=== PATIENT | female | born 1935 | race Caucasian/White ===

== ENCOUNTER 2017-09-16 09:58 | Day surgery (SDC) | payer MEDICARE, SELFPAY ==
[2017-09-13 09:36] VITALS: BMI 26.6
[2017-09-16] VITALS (12 sets, daily range): BP systolic 102–175; BP diastolic 52–79; PULSE 59–60; RESP 16; TEMP 36.6–37.2; O2SAT 95–98; BMI 24.9; BMI 26.6
--- NOTE | 2017-09-16 13:37 | CL.IE_ITS ---
Patient: NELI CLAY Study Date: 09/16/2017 Performing: Paul Michel MD : 1935 Age: 82 Gender: female PROCEDURES PERFORMED [id number] PACER INSERT+DUAL LEADS INDICATIONS Sinoatrial node dysfunction/Sick sinus syndrome PROCEDURE DETAILS The patient was brought to the Catheterization Lab in the postabsorptive nonsedated state. Informed consent was obtained prior to the procedure. Local anesthetic was given subcutaneously to the left olea bclavian region with Lidocaine 2%. Incision was made to the left subclavicular area. Access was achie leydi and a guidewire was advanced into the left subclavian vein using 9Fr peel-away sheath. PPM ventri cular lead was inserted / positioned to right ventricular apex. PPM ventricular lead testing performe d. PPM ventricular lead testing performed. PPM atrial lead was inserted / positioned to the right atr ial appendage. PPM atrial lead testing performed. Device pocket was irrigated with antibiotic. PPM ge nerator was attached to the lead(s) and inserted into the pocket. Subcutaneous closure was completed with 3-0 Vicryl. Skin closure was completed with 4-0 Vicryl. Steri-strips applied to left subclavicul ar incision. The patient tolerated the procedure well. 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: [employer], Model # 7741 52cm , Serial # [id number] PPM Atrial lead - Dredge Pipe Operator: [employer], Model # 7740 45cm , Serial # [id number] PPM Generator - Dredge Pipe Operator: [employer], Model # L111 [employer] MRI , Serial # [id number] DEVICE PARAMETERS ATRIAL LEAD PARAMETERS: P wave (mV) - 3.4 Current (mA) - 1.2 threshold (V) - 0.7 impedence (OHMS) - 588 10V test; no diaphragmatic capture VENTRICULAR LEAD PARAMETERS: R wave (mV) - 6.5 current (mA) - 0.7 threshold (V) - 0.6 impedence (OHMS) - 936 10V test; no diaphragmatic capture DEVICE PARAMETERS: Mode - DDDR lower rate - 60 upper rate - 130 rate response on CONCLUSIONS / RECOMMENDATIONS Device Conclusions: Successful implantation of a dual chamber pacemaker Device Recommendations: Follow up with Primary Care Physician PROCEDURE MEDICATIONS Fentanyl 50 mcg IV Versed 1 mg IV Versed 1 mg IV Oxygen: 2 L/min via nasal cannula Antibiotic given in appropriate timeframe. Ancef 2 Gm IV @ 09/16/2017 11:45:02 Signed By Paul Michel MD On 09/16/2017 13:37:04 Paul Michel MD
[2017-09-16] MEDS: Amiodarone 200 MG Tablet 100 MG PO (16:11)
[2017-09-16] MEDS: Metoprolol Tartrate 25 MG Tablet PO (21:21)
[2017-09-17 02:58] VITALS: BP 150/83; PULSE 62; RESP 16; TEMP 37; O2SAT 95
[2017-09-17 03:13] VITALS: PULSE 60
--- NOTE | 2017-09-17 05:55 | RAD_ITS ---
STUDY: X-RAY CHEST REASON FOR EXAM: Female, 82 years old. Status post pacemaker insertion. Evaluate for pneumothorax. TECHNIQUE: PA and lateral chest in inspiration. COMPARISON: September 17, 2015 at 6:42 AM. June 28, 2017. FINDINGS: The lungs are clear and expanded. There is no demonstrated pleural abnormality. No pneumothorax. Normal size heart. Normal mediastinum and dave. Normal visualized pulmonary arteries. Normal visualized aortic arch and descending thoracic aorta. Normal visualized thoracic spine. Normal visualized ribs, clavicles, and shoulders. Cardiac pacemaker left hemithorax. Cardiac pacer wire leads overlie the right atrium and right ventricle. There is no demonstrated abnormality of the visualized soft tissue structures of the upper abdomen. RAD/Chest PA and Lateral IMPRESSION: No acute cardiopulmonary disease. No pneumothorax. Cardiac pacemaker in its expected location. Electronically Signed: Carlos Alberto Cuellar MD at 7:17 EST , Service support ,
--- NOTE | 2017-09-17 05:55 | RAD_ITS ---
STUDY: X-RAY CHEST REASON FOR EXAM: Female, 82 years old. Status post pacemaker insertion. TECHNIQUE: AP portable chest in inspiration and expiration. COMPARISON: June 28, 2017. FINDINGS: The lungs are clear and expanded. There is no demonstrated pleural abnormality. No pneumothorax. Normal size heart. Normal mediastinum and dave. Normal visualized pulmonary arteries. Normal visualized aortic arch and descending thoracic aorta. Normal visualized thoracic spine. Normal visualized ribs, clavicles, and shoulders. Cardiac pacemaker overlies left hemithorax with leads overlying the right atrium and right ventricle. There is no demonstrated abnormality of the visualized soft tissue structures of the upper abdomen. RAD/Chest 1 View IMPRESSION: No acute cardiopulmonary disease. No pneumothorax. Cardiac pacemaker in its expected location. Electronically Signed: Carlos Alberto Cuellar MD at 7:03 EST , Service support ,
[2017-09-17 06:55] VITALS: PULSE 61
--- NOTE | 2017-09-17 07:52 | PCM.PN.CARD ---
Subjectve: Patient seen and evaluated and appears to be doing well with no complaints Objective: Vital Signs Temp Pulse Resp BP Pulse Ox 98.6 F 60 16 150/83 H 95 09/17/17 02:58 09/17/17 03:13 09/17/17 02:58 09/17/17 02:58 09/17/17 02:58 Oxygen Delivery Method Room Air Weight: 145 lb Body Mass Index (BMI) 24.9 Intake and Output for Last 24 Hours 09/15/17 09/16/17 09/17/17 23:59 23:59 23:59 Intake Total 240 / 240 Balance 240 / 240 General: Awake, Alert, Oriented x 3 HEENT: PERRL, EOMI, Sclera Non Icteric Neck: Supple, Good ROM, No Lymph Node Enlargement Lungs: Clear to auscultation Cardiovascular: Regular Rhythm, Normal S1, Normal S2, No Murmurs, No Rubs, No Gallops Vascular: No Carotid Bruits, Normal Femoral Pulses, Normal Radial Pulses, Normal Dorsalis Pedal Pulse, Normal Posterior Tibial Pulses Abdomen: Bowel Sounds Present, Soft, Non Tender, No HSM, No Organomegaly Extremities: No Cyanosis, No Clubbing, No edema Neurological: No Focal Motor or Sensory Deficit Psych/Mental Status: Appropriate Rhythm: EKG: ECHO: Stress Test: Cardiac Cath: PCI: CT Surgery: Holter monitor: EPS: PPM: CXR:No pneumothorax Chest CT Scan: Assessment/Plan 1. Status post pacemaker placement Patient is status post pacemaker placement and appears to be doing well chest x-ray does not demonstrate any evidence of pneumothorax and pacer check today noted adequately functioning dual-chamber pacemaker. Patient will be discharged to follow-up as an outpatient.
--- NOTE | 2017-09-17 07:55 | PN.CARD_ITS ---
Subjectve: Patient seen and evaluated and appears to be doing well with no complaints Objective: Vital Signs Temp Pulse Resp BP Pulse Ox 98.6 F 60 16 150/83 H 95 09/17/17 02:58 09/17/17 03:13 09/17/17 02:58 09/17/17 02:58 09/17/17 02:58 Oxygen Delivery Method Room Air Weight: 145 lb Body Mass Index (BMI) 24.9 Intake and Output for Last 24 Hours 09/15/17 09/16/17 09/17/17 23:59 23:59 23:59 Intake Total 240 / 240 Balance 240 / 240 General: Awake, Alert, Oriented x 3 HEENT: PERRL, EOMI, Sclera Non Icteric Neck: Supple, Good ROM, No Lymph Node Enlargement Lungs: Clear to auscultation Cardiovascular: Regular Rhythm, Normal S1, Normal S2, No Murmurs, No Rubs, No Gallops Vascular: No Carotid Bruits, Normal Femoral Pulses, Normal Radial Pulses, Normal Dorsalis Pedal Pulse, Normal Posterior Tibial Pulses Abdomen: Bowel Sounds Present, Soft, Non Tender, No HSM, No Organomegaly Extremities: No Cyanosis, No Clubbing, No edema Neurological: No Focal Motor or Sensory Deficit Psych/Mental Status: Appropriate Rhythm: EKG: ECHO: Stress Test: Cardiac Cath: PCI: CT Surgery: Holter monitor: EPS: PPM: CXR:No pneumothorax Chest CT Scan: Assessment/Plan 1. Status post pacemaker placement Patient is status post pacemaker placement and appears to be doing well chest x- ray does not demonstrate any evidence of pneumothorax and pacer check today noted adequately functioning dual-chamber pacemaker. Patient will be discharged to follow-up as an outpatient.
--- NOTE | 2017-09-17 07:55 | PCM.DC.PACE ---
Discharge Diet: No Restrictions Discharge Activity: May Not Drive Return to work on:: 10/04/17 May resume sexual activity in: 2 weeks Call your doctor if your incision/area has: Continuous Slow Oozing, Sudden Increased Bleeding, Increased Pain/ Swelling, Increased Redness, Foul Smelling Discharge, Swelling at the incision site Call your doctor if you observe: Fever of 101 or Higher, Shortness of breath, Dizziness, Fainting spells, Swelling in the ankles, Chest pain, Prolonged hiccoughing, Increased palpitations (irregular heartbeat) Change Dressing in (Days):: 3 Remove Dressing in (days):: 3 Cleanse incision/area with: Do not get Incision Wet, Keep Dressing Clean & Dry Additional Dressing/Incision Instructions:: When dressing is removed, wash and dry incision. Keep covered with a light bandage if it is rubbing against your clothing. Do not cover the incision with an airtight bandage. Change the bandage daily. Do not remove steri strips. The strips will fall off on their own. Additional Instructions: Signs and Symptoms to Report to Your Doctor at Once - call your doctor's office or Doctor's Registry ([phone]) Call 911 or go to the nearest Emergency Department if you feel you need urgent care. *Infection (fever, increased redness or swelling at the incision site, drainage from the incision increased pain at the pacemaker site) *Shortness of breath *Dizziness *Fainting spells *Swelling in the ankles *Chest pain *Prolonged hiccoughing *Increased palpitaitons (irregular heartbeat) Medications: Take your pain medication as directed. Refer to your discharge instruction sheet for a list of medications you are to take. Allergies/Adverse Reactions: Allergies No Known Allergies Allergy (Verified 06/21/17 08:57) Medications to take at Discharge Metoprolol Tartrate [Lopressor (Beta Janeth)] 25 mg PO BID 06/21/17 furosemide 40 mg tablet 40 ml PO DAILY 30 Days #30 08/20/17 Primary Care Physician: Alissa Benjamin DO [Primary Care Provider] - When: sep 24 at 10:30am Proposed Discharge Date: 09/17/17
--- NOTE | 2017-09-17 08:02 | PCM.PACRNU ---
Pacer Nurse Hospital Visit Notes: Dual Chamber Pacemaker Evaluation: 1st day post implant PPM check completed at bedside Rm #[id number]. Interrogation shows no MS, no AT/AF or VHR episodes since implant. Left pectoral pocket/incision DSD intact with small amount of old drainage noted on dressing that is circled. No hematoma noted. Presenting rhythm shows AAI pacing @ 60 ppm. CZ=000%, SENIOR QA TESTER=2%. Battery longevity approx >8 yrs. Lead impedances, sensing and pace/sense thresholds remain stable. No parameter changes made. Counters cleared. Wound care and left arm restriction instructions given including wound check appt on 09/24/17 @ 10:30am. Dr. Michel notified of above findings. Erica Milan RN
[2017-09-17 08:10] VITALS: BP 156/70; PULSE 60; RESP 18; TEMP 36.5; O2SAT 100
[2017-09-17 08:14] VITALS: PULSE 62; O2SAT 100
[2017-09-17 08:19] VITALS: BP 156/70; PULSE 62
[2017-09-17] MEDS: Amiodarone 200 MG Tablet 100 MG PO (08:19)
[2017-09-17] MEDS: Metoprolol Tartrate 25 MG Tablet PO (08:19)
--- NOTE | 2017-09-17 11:05 | NURSING ---
REVIEWED AND AGREED W/ Obed [facility]ABCOCK'S CHARTING.
== END 2017-09-17 09:55 | disposition home or self-care (01) ==
LOC: CLSP 09:59 → PCU 13:42
PROVIDERS: Family Provider Internal Medicine; PCP Internal Medicine; Visit Provider Internal Medicine Cardiovascular Disease
DX: I49.5 Sick sinus syndrome (principal); I48.0 Paroxysmal atrial fibrillation; I27.20 Pulmonary hypertension, unspecified; I45.10 Unspecified right bundle-branch block; R00.1 Bradycardia, unspecified; Z79.01 Long term (current) use of anticoagulants; Z79.899 Other long term (current) drug therapy; Z87.891 Personal history of nicotine dependence; Z85.41 Personal history of malignant neoplasm of cervix uteri
CPT/HCPCS: 33208; 71045; 71046; 99152; 99153; J7040; J7050; C1894

== ENCOUNTER → 2017-12-17 11:09 | Outpatient (CLI) | payer MEDICARE, SELFPAY ==
[2017-12-17 13:00] LABS: T4 Free Direct 1.21 ng/dL (0.76-1.46); Thyroid Stim Hormone (TSH) 1.41 uIU/mL (0.358-3.74)
== END ==
PROVIDERS: Family Provider Internal Medicine; PCP Internal Medicine; Visit Provider Physician Assistant Medical
DX: R53.83 Other fatigue (principal)
CPT/HCPCS: 36415; 84439; 84443

== ENCOUNTER → 2018-03-19 12:14 | Outpatient (CLI) | payer MEDICARE, SELFPAY ==
--- NOTE | 2018-03-19 12:18 | RAD_ITS ---
STUDY: X-RAY CHEST REASON FOR EXAM: Female, 82 years old. Shortness of breath x3 weeks TECHNIQUE: PA and lateral views of the chest. COMPARISON: Previous study of September 17, 2017 FINDINGS: There is a left-sided bipolar pacemaker. The lungs are clear and expanded. There is minimal blunting of the posterior costophrenic angles. Normal size heart. Normal mediastinum and dave. Normal visualized pulmonary arteries. There are calcified plaques of the aortic arch. Normal visualized thoracic spine. Normal visualized ribs, clavicles, and shoulders. There is no demonstrated abnormality of the visualized soft tissue structures of the upper abdomen. RAD/Chest PA and Lateral IMPRESSION: 1. Minimal blunting of the posterior costophrenic angles, similar to the previous study. 2. Calcified plaques of the aortic arch. 3. No acute cardiopulmonary disease process is seen. Electronically Signed: Bebeto Beaver MD at 17:16 EDT , Service support ,
[2018-03-19 13:59] LABS: Absolute Lymphocyte Count 1.65 X10^3/ul (0.83-4.51); Absolute Neutrophil Count 3.6 X10^3/uL (2.0-7.7); Basophil# 0.05 X10^3/uL; Basophil% 0.9 % (0-1); Eosinophil# 0.13 X10^3/uL; Eosinophils% 2.2 % (0-5); Hematocrit 41.5 % (37-47); Hemoglobin 13.6 g/dl (12.0-15.0); Lymphocyte # 1.65 X10^3/ul (4.0); Lymphocyte % 28.2 % (19-41); Mean Corp Hgb Conc 32.8 g/gl (32-36); Mean Corpuscular Hgb 30.8 pg (27.0-32.0); Mean Corpuscular Volume 94.1 fL (81-99); Mean Platelet Vol. 10.8 fl (6.2-12.0); Monocyte# 0.43 X10^3/uL; Monocyte% 7.4 % (0-10); Neutrophil # 3.58 X10^3/uL (2.7-7.7); Neutrophil % 61.1 % (47-70); Platelet Count 207 K/mm3 (150-450); RBC Distribution Width CV 12.7 % (11.6-14.6); RBC Distribution Width SD 43.7 fl (35.1-43.9); Red Blood Count 4.41 M/mm3 (4.2-5.4); White Blood Count 5.9 K/mm3 (4.4-11.0)
[2018-03-19 14:01] LABS: POSITIVE COUNT NO; POSITIVE DIFFERENTIAL NO; POSITIVE MORPHOLOGY NO
[2018-03-19 14:12] LABS: Anion Gap 5 (5-15); BUN 22 mg/dL (7-18); BUN/Creat Ratio 22.3 RATIO (10-20); Calcium,Total 9.3 mg/dL (8.5-10.1); Chloride 103 mmol/L (98-107); Creatinine, Serum 0.99 mg/dL (0.55-1.02); EST Glomerular Filtration Rate 57 mL/min (>60); Est Glom Filt Rate - Afr Amer 70 mL/min (>60); Glucose 87 mg/dL (74-106); Potassium 4.2 mmol/L (3.5-5.1); Sodium Level 136 mmol/L (136-145)
[2018-03-19 14:19] LABS: BNP,B-Type NATRIURETIC PEPTIDE 198.4 pg/mL (0-100)
== END ==
PROVIDERS: Family Provider Internal Medicine; PCP Internal Medicine; Visit Provider Physician Assistant Medical
DX: R06.09 Other forms of dyspnea (principal); R53.83 Other fatigue; I48.91 Unspecified atrial fibrillation; R06.02 Shortness of breath
CPT/HCPCS: 36415; 71046; 80048; 83880; 85025

== ENCOUNTER → 2018-04-03 08:40 | Outpatient (CLI) | payer MEDICARE, SELFPAY ==
--- NOTE | 2018-04-04 07:25 | PFT ---
INTRODUCTION: The patient is an 82-year-old female who presents for pulmonary function testing secondary to a diagnosis of dyspnea on exertion. Respiratory therapy reports good patient effort. Bronchodilators were used during testing. INTERPRETATION: Forced expiration spirometry demonstrates no evidence of a large airways obstructive ventilatory defect, based upon a postbronchodilator FEV1/FVC of greater than 70%. There was no significant response to aerosolized bronchodilators. Spirograms are of good quality and plateau gradually. Body plethysmography was performed and reveals lung volumes to be within normal limits. Diffusing capacity by single breath CO is within normal limits at 85% of predicted. When compared to previous pulmonary function studies dated August 2017, there has been symmetric improvement in the patient's FEV1 and FVC. Total lung capacity is also improved. IMPRESSION: Essentially normal pulmonary function testing, with improvement noted since PFTs were last completed in August 2017.
== END ==
PROVIDERS: Family Provider Internal Medicine; PCP Internal Medicine; Visit Provider Physician Assistant Medical
DX: I48.91 Unspecified atrial fibrillation (principal); R06.09 Other forms of dyspnea; R53.83 Other fatigue
CPT/HCPCS: 94060; 94726; 94729

== ENCOUNTER → 2018-06-23 06:27 | Outpatient (CLI) | payer MEDICARE, SELFPAY ==
--- NOTE | 2018-06-23 11:23 | STRESSREP ---
Stress Test Report Pharmacologic myocardial perfusion stress test. 82-year-old lady with a history of chest pain and shortness of breath and atrial fibrillation. Stress protocol: Resting EKG demonstrates atrial for ablation with a controlled ventricular response rate of 74 bpm frequent premature ventricular complexes are noted resting blood pressure 146/98 mmHg. 0.4 mg of regadenoson was infused per usual protocol followed by rapid intravenous saline flush injection continuous EKG monitoring was performed. Patient maintained atrial for ablation throughout the recording. Occasional premature ventricular complexes were noted. At rest there were no ST or T wave changes noted suggest abnormal flow reserve at peak infusion no ST or T wave changes were noted suggest abnormal flow reserve. No areas of EKG changes were noted to be of concern. The resting blood pressure 146/98 with a final blood pressure 118/80 mmHg. Myocardial perfusion protocol. 10.4 mCi of technetium 99m sestamibi was injected at rest. 0.4 mg of regadenoson was infused per usual protocol. Peak infusion 31.5 mCi of technetium 99m sestamibi was injected stress images were obtained stress and rest images were reconstructed and compared in the short axis vertical long horizontal long axis. Gated images were also obtained per Perfusion SPECT analysis: Review of the stress images demonstrate normal uptake of tracer noted in all areas of the myocardium. The resting images demonstrate normal uptake of tracer noted in all areas of the myocardium. No reversibility is noted suggest ischemia. Gated SPECT analysis: The gated ejection fraction is 74%. Conclusion: Normal pharmacologic myocardial perfusion stress test. Preserved ejection fraction.
== END ==
PROVIDERS: Family Provider Internal Medicine; PCP Internal Medicine; Referring Provider Physician Assistant Medical; Visit Provider Physician Assistant Medical
DX: R07.89 Other chest pain (principal)
CPT/HCPCS: 78452; 93017; A9500; A4216; J2785

== ENCOUNTER → 2018-08-29 10:07 | Outpatient (CLI) | payer MEDICARE, SELFPAY ==
[2018-07-29 07:52] VITALS: BMI 25.5
[2018-08-29 11:52] LABS: BNP,B-Type NATRIURETIC PEPTIDE 470.2 pg/mL (0-100)
== END ==
PROVIDERS: Family Provider Internal Medicine; PCP Internal Medicine; Referring Provider Internal Medicine Cardiovascular Disease; Visit Provider Internal Medicine Cardiovascular Disease
DX: R06.09 Other forms of dyspnea (principal)
CPT/HCPCS: 36415; 83880

== ENCOUNTER → 2018-09-04 15:02 | Outpatient (CLI) | payer MEDICARE, SELFPAY ==
[2018-07-29 07:52] VITALS: BMI 25.5
[2018-09-04 15:21] LABS: Absolute Lymphocyte Count 1.67 X10^3/ul (0.83-4.51); Absolute Neutrophil Count 3.5 X10^3/uL (2.0-7.7); Basophil# 0.07 X10^3/uL; Basophil% 1.2 % (0-1); Eosinophil# 0.13 X10^3/uL; Eosinophils% 2.2 % (0-5); Hematocrit 41.3 % (37-47); Hemoglobin 13.7 g/dl (12.0-15.0); Lymphocyte # 1.67 X10^3/ul (4.0); Mean Corp Hgb Conc 33.2 g/gl (32-36); Mean Corpuscular Hgb 31.3 pg (27.0-32.0); Mean Corpuscular Volume 94.3 fL (81-99); Mean Platelet Vol. 10.4 fl (6.2-12.0); Monocyte# 0.53 X10^3/uL; Monocyte% 8.9 % (0-10); Neutrophil # 3.54 X10^3/uL (2.7-7.7); Neutrophil % 59.4 % (47-70); Platelet Count 194 K/mm3 (150-450); RBC Distribution Width CV 13.2 % (11.6-14.6); RBC Distribution Width SD 44.1 fl (35.1-43.9); Red Blood Count 4.38 M/mm3 (4.2-5.4)
[2018-09-04 15:29] LABS: POSITIVE COUNT NO; POSITIVE DIFFERENTIAL NO; POSITIVE MORPHOLOGY NO
[2018-09-04 15:49] LABS: Anion Gap 10 (5-15); BUN 29 mg/dL (7-18); BUN/Creat Ratio 24.8 RATIO (10-20); Calcium,Total 9.2 mg/dL (8.5-10.1); Chloride 104 mmol/L (98-107); Creatinine, Serum 1.17 mg/dL (0.55-1.02); EST Glomerular Filtration Rate 47 mL/min (>60); Est Glom Filt Rate - Afr Amer 57 mL/min (>60); Glucose 119 mg/dL (74-106); Potassium 3.6 mmol/L (3.5-5.1); Sodium Level 140 mmol/L (136-145)
[2018-09-04 16:41] LABS: International Normalized Ratio 1.3; Prothrombin Time (Protime)PT. 15.7 SECONDS (11.7-14.9)
[2018-09-04 16:42] LABS: Partial Thromboplast Time 40.8 Seconds (24.1-36.2)
--- OUTSIDE RECORDS SUMMARY | 2018-11-09 10:28 | XMS RPT_ITS ---
:1935 Author Organization [facility] Support Name Relationship Address Phone MARCELINO RIVERA Unavailable [address] + [place] [address] LAN CLAY Unavailable [address] + [place] [address] R Unavailable Unavailable Unavailable MARCELINO RIVERA Unavailable [address] + [place] [address] LAN CLAY Unavailable [address] + [place] [address] R Unavailable Unavailable Unavailable MARCELINO RIVERA Unavailable [address] + [place] [address] LAN CLAY Unavailable [address] + [place] [address] R Unavailable Unavailable Unavailable MARCELINO RIVERA Unavailable [address] + [place] [address] LAN CLAY Unavailable [address] + [place] [address] R Unavailable Unavailable Unavailable MARCELINO RIVERA Unavailable [address] + [place] [address] LAN CLAY Unavailable [address] + [place] [address] R Unavailable Unavailable Unavailable MARCELINO RIVERA Unavailable [address] + [place] [address] LAN CLAY Unavailable [address] + [place] [address] R Unavailable Unavailable Unavailable MARCELINO RIVERA Unavailable [address] + [place] [address] LAN CLAY Unavailable [address] + [place] [address] R Unavailable Unavailable Unavailable MARCELINO RIVERA Unavailable . + [place] [address] LAN CLAY Unavailable [address] + [place] [address] R Unavailable Unavailable Unavailable MARCELINO RIVERA Unavailable Unavailable + [place] [address] LAN CLAY Unavailable [address] + [place] [address] R Unavailable Unavailable Unavailable MARCELINO RIVERA Unavailable Unavailable + [place] [address] LAN CLAY Unavailable [address] + [place] [address] R Unavailable Unavailable Unavailable MARCELINO RIVERA Unavailable 1 + [place] [address] LAN CLAY Unavailable [address] + [place] [address] R Unavailable Unavailable Unavailable MARCELINO RIVERA Unavailable 1 + [place] [address] LAN CLAY Unavailable [address] + [place] [address] R Unavailable Unavailable Unavailable MARCELINO RIVERA Unavailable Unavailable + LAN CLAY Unavailable [address] + [place] [address] R Unavailable Unavailable Unavailable MARCELINO RIVERA Unavailable Unavailable + LAN CLAY Unavailable [address] + [place] [address] R Unavailable Unavailable Unavailable MARCELINO RIVERA Unavailable Unavailable + LAN CLAY Unavailable [address] + [place] [address] R Unavailable Unavailable Unavailable MARCELINO RIVERA Unavailable 1 + [place] [address] LAN CLAY Unavailable [address] + [place] [address] R Unavailable Unavailable Unavailable MARCELINO RIVERA Unavailable Unavailable + LAN CLAY Unavailable [address] + [place] [address] R Unavailable Unavailable Unavailable MARCELINO RIVERA Unavailable NA + [place], [place] LAN CLAY Unavailable [address] + [place] [address] R Unavailable Unavailable Unavailable MARCELINO RIVERA Unavailable NA + [place], [place] LAN CLAY Unavailable [address] + [place] [address] R Unavailable Unavailable Unavailable MARCELINO RIVERA Unavailable NA + [place], [place] LAN CLAY Unavailable [address] + [place] [address] R Unavailable Unavailable Unavailable MARCELINO RIVERA Unavailable NA + [place], [place] LAN CLAY Unavailable [address] + [place] [address] R Unavailable Unavailable Unavailable LAN CLAY Unavailable [address] + [place] [address] R Unavailable Unavailable Unavailable LAN CLAY Unavailable [address] + [place] [address] R Unavailable Unavailable Unavailable MARCELINO RIVERA Unavailable Unavailable + LAN CLAY Unavailable [address] + [place] [address] R Unavailable Unavailable Unavailable MARCELINO RIVERA Unavailable NA + [place], [place] LAN CLAY Unavailable [address] + [place] [address] R Unavailable Unavailable Unavailable Care Team Providers Name Role Phone Alissa Benjamin DO Attending Unavailable Diamante Estes MD Referring Unavailable Alissa Benjamin DO Consulting Unavailable Marilu, Red Devil Attending Unavailable Alissa Benjamin Referring Unavailable Marilu, Red Devil Attending Unavailable Marilu, Paul Referring Unavailable Alissa Benjamin Primary Care Unavailable Lizy Yusuf Attending Unavailable Marilu, Paul Attending Unavailable Marilu, Paul Referring Unavailable Alissa Benjamin Primary Care Unavailable Marilu, Paul Attending Unavailable Alissa Benjamin Referring Unavailable Marilu, Red Devil Attending Unavailable Cassidy, Alissa Primary Care Unavailable Marilu, Paul Referring Unavailable Marilu, Red Devil Attending Unavailable Marilu, Red Devil Referring Unavailable Cassidy, Alissa Primary Care Unavailable Jaylene Milan Attending Unavailable Marilu, Red Devil Attending Unavailable Marilu, Red Devil Referring Unavailable Cassidy, Alissa Primary Care Unavailable Marilu, Paul Consulting Unavailable BjornTemie Attending Unavailable Cassidy, Alissa Referring Unavailable Cassidy, Alissa Primary Care Unavailable BjornTemie Attending Unavailable Cassidy, Alissa Referring Unavailable Cassidy, Alissa Primary Care Unavailable Marilu, Paul Attending Unavailable Marilu, Paul Referring Unavailable PaulsonAngelica terry Attending Unavailable Marilu, Paul Referring Unavailable Cassidy, Alissa Primary Care Unavailable Marilu, Paul Consulting Unavailable Lizy Yusuf Attending Unavailable Leora Sierra Attending Unavailable Angelica Paulson Attending Unavailable Cassidy, Alissa Referring Unavailable Cassidy, Alissa Primary Care Unavailable Angelica Paulson Attending Unavailable Angelica Paulson M Referring Unavailable Cassidy, Alissa Primary Care Unavailable Angelica Paulson Attending Unavailable Cassidy, Alissa Referring Unavailable Cassidy, Alissa Primary Care Unavailable Angelica Paulson M Attending Unavailable PaulsonAngelica M Referring Unavailable Cassidy, Alissa Primary Care Unavailable Angelica Paulson M Attending Unavailable Paulson, Angelica M Referring Unavailable Cassidy, Alissa Primary Care Unavailable Randell Bhat D.O. Attending Unavailable Angelica Paulson M Referring Unavailable BjornJaylene Attending Unavailable Cassidy, Alissa Referring Unavailable Cassidy, Alissa Primary Care Unavailable Angelica Paulson M Attending Unavailable Cassidy, Alissa Referring Unavailable Lorene, Angelica M Attending Unavailable Angelica Paulson M Referring Unavailable Cassidy, Alissa Primary Care Unavailable Marilu, Paul Attending Unavailable Angelica Paulson M Referring Unavailable PROBLEMS PROBLEMS DATE TYPE CONDITION / CODE ATTENDING STATUS SOURCE 07/29/2018 Unknown R06.09 - Other Marilu, Paul Active [place] forms of dyspnea / Community R06.09(ICD-10) Hospital Repository 07/29/2018 Unknown I10 - Essential Marilu, Paul Active [place] (primary) Community hypertension / Hospital I10(ICD-10) Repository 07/29/2018 Unknown Z95.0 - Presence Marilu, Red Devil Active [place] of cardiac Community pacemaker / Hospital Z95.0(ICD-10) Repository 07/29/2018 Unknown I48.0 - Paroxysmal Marilu, Red Devil Active [place] atrial Community fibrillation / Hospital I48.0(ICD-10) Repository 07/15/2018 Unknown R07.9 - Chest Marilu, Paul Active [place] pain, unspecified Community / R07.9(ICD-10) Hospital Repository 03/19/2018 Unknown R53.83 - Other Paulson, Active [place] fatigue / [facility] R53.83(ICD-10) Hospital Repository 03/19/2018 Unknown I48.91 - Paulson, Active [place] Unspecified atrial [facility] fibrillation / Hospital I48.91(ICD-10) Repository 10/22/2017 Unknown I49.5 - Sick sinus Marilu, Paul Active [place] syndrome / [facility] I49.5(ICD-10) Hospital Repository PROCEDURES PROCEDURES No Procedure Records FoundRESULTS RESULTS HISTORY AND PHYSICAL Observed: 09/08/2018 Status: F Source: [place] EXAM 10:01 AM [facility]ITORY [facility] Medical Records Department [address] [place] [address] History and Physical 09/08/18 0939 MR#: [id number] Acct: [id number] Name: NELI CLAY Rep #: [id number] : 1935 83 From: Angelica RENTERIA PCP: Alissa Benjamin DO Status: [facility] [place] Location[facility] Problem List (1) Fatigue Status: Acute Qualifiers: Fatigue type: chronic, unspecified Qualified Code(s): R53.82 - Chronic fatigue, unspecified (2) Dyspnea on exertion Status: Acute History and Physical Date of Admission: 09/08/18 NELI CLAY, is a 82 F who presents here today for a heart cath for her continued OROURKE and Fatigue. She does have a history of paroxysmal atrial fibrillation, palpitations, right bundle branch block, hypertension and pulmonary hypertension. In August 2017 she was in our office for an urgent appointment for shortness of breath. She was noted to have symptomatic sinus bradycardia and underwent a pacemaker placement. Pt has continued to complain of OROURKE with activity, she feels that she should be able to do more that she should She also notes fatigue during activities. She sts that this weekend while out shoveling snow she noted chest pain and SOB. She stopped this activity. She is not aware that this is in Atrial fib. She does not have any edema, lightheadedness, dizziness. We have been adjusting her medications and she has not felt improvement. Stress test in June of 2018 was negative for ischemia. With her continued concerns we are proceeding with a diagnostic heart cath. Intake Vital Signs Height 5 ft 4 in Weight: 149 lb Body Mass Index (BMI) 25.5 Blood Pressure 112/64 Respiratory Rate 18 Pulse Rate 72 Allergies No Known Allergies Allergy (Verified 07/29/18 07:52) Medications apixaban 5 mg tablet 5 mg PO BID #180 tab 01/09/18 [Rx Confirmed 07/29/18] metoprolol tartrate 25 mg tablet 25 mg PO BID #60 tab 04/07/18 [Rx Confirmed 07/29/18] lisinopril 20 mg tablet 20 mg PO DAILY #30 tab 07/14/18 [Rx Confirmed 07/29/18] amiodarone 200 mg tablet 100 mg PO DAILY 30 Days #15 tab 07/29/18 [History Confirmed 07/29/18] furosemide 40 mg tablet 40 mg PO DAILY #90 tab 07/29/18 [Rx Confirmed 07/29/18] [facility] Medical History Essential hypertension (Chronic) Other secondary pulmonary hypertension (Chronic) Nonrheumatic tricuspid (valve) insufficiency (Chronic) Sinus bradycardia (Chronic) Paroxysmal atrial fibrillation (Chronic) Complete right bundle branch block (Chronic) Sick sinus syndrome (Chronic) Presence of cardiac pacemaker (Chronic) Cervical cancer (Resolved) New onset atrial fibrillation (Inactive) Surgical History History of cardioversion (Resolved 07/13/17) History of hysterectomy (Resolved) History of tonsillectomy (Resolved) Hx of cholecystectomy (Resolved) Family History Mother CHF (congestive heart failure) Father Myocardial infarction Brother Heart disease Social History Smoking Status: Former smoker alcohol intake: never substance use type: does not use caffeine: No what type of physical activity do you participate in: none seatbelt use: always do you feel safe at home: Yes ROS Const Const: Positive for Fatigue Negative for weakness, difficulty sleeping, frequent falls, excessive sweating or headache(s) Eyes Eyes: Negative for loss of peripheral vision, transient loss of vision, blurry vision, tunnel vision or double vision ENT ENT: Negative for headache(s), dizziness, Nosebleed/epistaxis or balance problems Cardio Chest Pain: No Palpitations: No Edema: none Muscle aches with walking: None Resp Respiratory: Positive for SOB with activity; negative for SOB at rest, SOB orthopnea\SOB lying down, paroxysmal nocturnal dyspnea or Cough GI GI: Negative nausea, heartburn, black,tarry stools or vomiting : Negative for hematuria Musc Musc: Negative for balance problems, muscle aches/ myalgia, muscle weakness or joint pain Skin Skin: Negative non-healing lesions, unusual bruising or rash Neuro Neuro: Negative for weakness, frequent falls, headache(s), blurry vision, double vision, dizziness, lightheadedness, orthostatic symptoms, near syncope, syncope or lack of coordination Yan Hematologic/Lymphatic: Negative for easy bruising or easy bleeding Endo Endo: Negative for fatigue, excessive sweating or increased thirst/drinking Psych Psych: Negative for anxiety or depression Allergy Allergy/Immunology: Negative for hives, Negative for rash Cardiology Exam Const Appearance: cooperative, healthy appearing, well developed, well groomed and no acute distress Nutritional Appearance: well nourished and average body habitus Orientation: alert, awake and oriented x3 Head Head: normal to inspection, normocephalic and atraumatic Ears: hearing grossly normal bilaterally and external ears normal Nose: external nose normal, nasal mucous membranes and turbinates normal, nares normal, septum normal, no nasal discharge Face and Sinus: face symmetric Mouth: oral mucosae normal, tongue normal, oropharynx normal and moist mucous membranes Teeth and gingiva: dentition normal Throat: posterior oropharynx normal, tonsils normal and uvula midline Eyes General: appearance normal, both eyes and all related structures Eyelids: eyelids normal Conjunctivae: conjunctivae normal Pupils: PERRL, normal by confrontation and accommodation normal EOM: EOM intact bilaterally Neck Neck: normal visual inspection, trachea midline and no JVD JVD: +5 Carotids: normal carotid upstroke and bounding pulses Chest Chest inspection: normal inspection of the chest, symmetric chest movement and normal respiratory effort Auscultation: Bilateral: Clear to Auscultation Cardio Palpation: normal PMI Rate: regular rate Rhythm: irregularly irregular Heart sounds: S1 normal, S2 normal and normal, physiologic split S2; negative rub, gallop or murmur GI GI: normal to inspection, soft, no hepatosplenomegaly and bowel sounds present Neuro General: alert, awake, oriented x3, no focal sensory deficit, gait normal and moves all extremities Skin Skin: no rashes or lesions noted Extremities Pulses: Normal: Right Femoral Pulse, Left Femoral Pulse, Right Dorsalis Pedis Pulse, Left Dorsalis Pedis Pulse, Right Posterior Tibial Pulse, Left Posterior Tibial Pulse, Right Radial Pulse, Left Radial Pulse Lower Extremity Edema: None: Bilateral Musculoskel Musculoskeletal: No joint tenderness Psych Psychological: normal affect Supplemental Info Echocardiogram in 2017 demonstrates an ejection fraction of 60%. Mild mitral valve insufficiency. Mild tricuspid valve insufficiency. RVSP 38 mmHg. Pharmacologic stress test in 2018 was negative for ischemia. Pulmonary function test in 2018 demonstrated essentially normal pulmonary function testing, with improvement noted since PFTs were last completed in August 2017. Assessment AND Plan 1. Dyspnea on exertion R06.09 2. Essential hypertension I10 3. Presence of cardiac pacemaker Z95.0 4. Paroxysmal atrial fibrillation I48.0 As mentioned above, with pts continued OROURKE and exertion, we are proceeding with a diagnostic heart cath. Pt will follow up accordingly after heart cath. The above patient was discussed with Dr. Michel, he agrees with plan of care. 09/08/18 1001 <Electronically signed by Angelica RENTERIA> Date Angelica RENTERIA Cosigner Signature: Date (if applicable) CC: Alissa Benjamin DO; Angelica Paulson Signed OFFICE VISIT REPORT Observed: 09/04/2018 Status: F Source: [place] 4:07 PM [facility] [place] [address] OFFICE VISIT Date of Service: 09/04/18 MR#: [id number] Acct: [id number] Patient: NELI CLAY Rep #: [id number] : 1935 Provider: Paul Michel MD Age/Sex: 83/F Location: [facility] Status: Signed Intake Vital Signs09/04/18 Body Mass Index (BMI) 25.5 Intake Visit Reasons: Cath Teach/EKG Chief Complaint: Follow up Allergies No Known Allergies Allergy (Verified 07/29/18 07:52) Medications apixaban 5 mg tablet 5 mg PO BID #180 tab 01/09/18 [Rx Confirmed 07/29/18] metoprolol tartrate 25 mg tablet 25 mg PO BID #60 tab 04/07/18 [Rx Confirmed 07/29/18] lisinopril 20 mg tablet 20 mg PO DAILY #30 tab 07/14/18 [Rx Confirmed 07/29/18] furosemide 40 mg tablet 40 mg PO DAILY #90 tab 07/29/18 [Rx Confirmed 07/29/18] amiodarone 200 mg tablet 100 mg PO DAILY #45 tab 08/07/18 [Rx] aspirin 81 mg tablet,delayed release 81 mg PO DAILY 09/04/18 [History] clopidogrel 75 mg tablet 75 mg PO DAILY #30 tab 09/04/18 [Rx] Nursing Note Cardiac catheterization teaching completed and instructions reviewed. Patient will hold eliquis starting tonight and start sapirin 81mg and plavix 75 mg daily. Labs and EKG completed. EKG shows atrial fib. Cath scheduled for 09/08/18 09/04/18 6369 <Electronically signed by Paul Michel MD> Date Paul Michel MD Cosigner Signature: Date (if applicable) CC: CBC W/DIFF, AUTOMATED Collected: 09/04/2018 Status: F Source: [place] 3:06 PM [facility] REPOSITORY TYPE CODE TESTS RESULT OUT OF RANGE REFERENCE UNITS LAB L100.1000 4.4-11.0 K/mm3 Normal WBC 6.0 LAB L100.1200 4.2-5.4 M/mm3 Normal RBC 4.38 LAB L100.1300 12.0-15.0 g/dl Normal HGB 13.7 LAB L100.1400 37-47 % Normal HCT 41.3 LAB L100.1500 81-99 fL Normal MCV 94.3 LAB L100.1600 27.0-32.0 pg Normal MCH 31.3 LAB L100.1700 32-36 g/gl Normal MCHC 33.2 LAB L100.1810 11.6-14.6 % Normal RDW CV 13.2 LAB L100.1820 35.1-43.9 fl High RDW SD 44.1 LAB L100.1900 150-450 K/mm3 Normal PLT 194 LAB L100.2000 6.2-12.0 fl Normal MPV 10.4 LAB L100.2100 47-70 % Normal NEUT% 59.4 LAB L100.2200 19-41 % Normal LY% 28.0 LAB L100.2300 0-10 % Normal MONO% 8.9 LAB L100.2400 0-5 % Normal EO% 2.2 LAB L100.2500 0-1 % High BASO% 1.2 LAB L100.2550 0.0-0.9 % Normal IM GRAN % 0.300 Result Comment: IG% - Immature Granulocytes (promyelocytes, myelocytes and metamyelocytes) > 1% indicates that a LEFT SHIFT is Present. LAB L100.2620 2.0-7.7 X10 3/uL Normal Absolute Neut 3.5 LAB L100.2720 0.83-4.51 X10 3/ul Normal Absolute Lymph 1.67 Performed By: #### L100.0100 #### [facility] [address] [place], [address] BASIC METABOLIC Collected: 09/04/2018 Status: F Source: [place] PROFILE (BMP) 3:06 PM [facility] REPOSITORY TYPE CODE TESTS RESULT OUT OF RANGE REFERENCE UNITS LAB L501.0100 74-106 mg/dL High GLU 119 Result Comment: Fasting Glucose result from 100 to 125 mg/dL suggests IMPAIRED HOMEOSTASIS per A.D.A. criteria. Please note revised GLUCOSE reference range effective 2017. LAB L501.1000 7-18 mg/dL High BUN 29 LAB L501.1100 0.55-1.02 mg/dL High CREAT,SERUM 1.17 Result Comment: The validity of the calculated GFR AND GFRAA in patients over 70 years has not been determined. Clinical correlation is essential. LAB L501.1110 >60 mL/min Low EST GFR 47 Result Comment: Non- GFR Calc LAB L501.1115 >60 mL/min Low EST GFR - AA 57 Result Comment: GFR Calc LAB L501.1300 10-20 RATIO High BUN/CRE 24.8 LAB L501.2200 8.5-10.1 mg/dL CA Normal 9.2 LAB L501.5300 136-145 mmol/L NA Normal 140 LAB L501.5600 3.5-5.1 mmol/L K Normal 3.6 LAB L501.5900 98-107 mmol/L CL Normal 104 LAB L501.6100 21.0-32.0 mmol/L Normal CO2 26.0 LAB L501.6200 5-15 Normal GAP 10 Performed By: #### L500.2500 #### [facility] [address] [place], [place], [address] PROTHROMBIN TIME W/INR Collected: 09/04/2018 Status: F Source: [place] 3:06 PM [facility] REPOSITORY TYPE CODE TESTS RESULT OUT OF RANGE REFERENCE UNITS LAB L300.4150 11.7-14.9 SECONDS High PROTIME 15.7 LAB L300.4200 Normal INR 1.3 Performed By: #### L300.3900, L300.4310 #### [facility] [address] [place], [address] PARTIAL THROMBOPLAST Collected: 09/04/2018 Status: F Source: [place] TIME 3:06 PM [facility] REPOSITORY TYPE CODE TESTS RESULT OUT OF REFERENCE UNITS RANGE LAB L300.4310 24.1-36.2 Seconds High PTT 40.8 Performed By: #### L300.3900, L300.4310 #### [facility] [address] [place], [address] 12 LEAD EKG PERFORMED Observed: 09/04/2018 Status: F Source: [place] BY BMS 10:35 AM [facility] REPOSITORY [facility] [address] [place] [address] 12 Lead EKG performed by [facility] 09/04/18 1033 MR#: [id number] Acct: [id number] Name: NELI CLAY Rep #: [id number] : 1935 83 From: Paul Michel MD Attending Dr: Lizy Yusuf Status: REG BNV Ordering Dr: Paul Michel MD Date: 09/04/18 Location: [facility] Sex: F C Admitted: BMS/12 Lead EKG performed by [facility] ECG Report Interpretation Atrial fibrillation - frequent ectopic ventricular beat s # VECs = 3-Right bundle branch block. ABNORMAL Electronically signed on 09/09/2018 at 15:36 by Paul Michel Software Version [id number] 09/09/18 1540 Date Paul Michel MD CC: Date Dictated: 09/04/183 Date Transcribed: 09/04/181032 Bankruptcy Paralegal: [place] Signed BNP,B-TYPE NATRIURETIC Collected: 08/29/2018 Status: F Source: [place] PEPTIDE 10:14 AM [facility] REPOSITORY TYPE CODE TESTS RESULT OUT OF RANGE REFERENCE UNITS LAB L503.6620 0-100 pg/mL High B-TYPE 470.2 ELOISA PEP Performed By: #### L503.6620 #### [facility] [address] [place], [address] CARDIOLOGY VISIT Observed: 07/29/2018 Status: F Source: [place] REPORT 10:17 AM [facility] REPOSITORY [facility] [address] [place] [address] OFFICE VISIT Date of Service: 07/29/18 MR#: [id number] Acct: [id number] Name: NELI CLAY Rep #: [id number] : 1935 Provider: Paul Michel MD Age/Sex: 83/F Location: [facility] Status: Signed HPI HPI Chief Complaint: Follow up Details: NELI CLAY, is a 83 F who presents to the office today for a follow-up visit. She is a lady with a history of paroxysmal atrial fibrillation, right bundle branch block, pulmonary hypertension, who had symptomatic sinus bradycardia and underwent permanent pacemaker implantation. She still complains of shortness of breath and not being able to play tennis. As you know she has been swimming in the past she also did have some high blood pressure and was started on lisinopril as well as hydrochlorothiazide. She had said that the addition of Lasix in the past did not make much of a difference. Her last echocardiogram had demonstrated an ejection fraction of 60% with right ventricular systolic pressure estimated at 38 mmHg. Her physical exam today demonstrates clear lung hallman regular rate and rhythm and no pedal edema. She does not appear to have lost any weight since the last visit. Intake Vital Signs07/29/18 Height 5 ft 4 in 07/29/18 Weight: 149 lb 07/29/18 Body Mass Index (BMI) 25.5 07/29/18 Blood Pressure 112/64 07/29/18 Respiratory Rate 18 07/29/18 Pulse Rate 72 Intake Visit Reasons: 6 M FU Allergies No Known Allergies Allergy (Verified 07/29/18 07:52) Medications apixaban 5 mg tablet 5 mg PO BID #180 tab 01/09/18 [Rx Confirmed 07/29/18] metoprolol tartrate 25 mg tablet 25 mg PO BID #60 tab 04/07/18 [Rx Confirmed 07/29/18] lisinopril 20 mg tablet 20 mg PO DAILY #30 tab 07/14/18 [Rx Confirmed 07/29/18] amiodarone 200 mg tablet 100 mg PO DAILY 30 Days #15 tab 07/29/18 [History Confirmed 07/29/18] furosemide 40 mg tablet 40 mg PO DAILY #90 tab 07/29/18 [Rx Confirmed 07/29/18] [facility] Medical History Essential hypertension (Chronic) Other secondary pulmonary hypertension (Chronic) Nonrheumatic tricuspid (valve) insufficiency (Chronic) Sinus bradycardia (Chronic) Paroxysmal atrial fibrillation (Chronic) Complete right bundle branch block (Chronic) Sick sinus syndrome (Chronic) Presence of cardiac pacemaker (Chronic) Cervical cancer (Resolved) New onset atrial fibrillation (Inactive) Surgical History History of cardioversion (Resolved 07/13/17) History of hysterectomy (Resolved) History of tonsillectomy (Resolved) Hx of cholecystectomy (Resolved) Family History Mother CHF (congestive heart failure) Father Myocardial infarction Brother Heart disease Social History Smoking Status: Former smoker alcohol intake: never substance use type: does not use caffeine: No what type of physical activity do you participate in: none seatbelt use: always do you feel safe at home: Yes ROS Const Const: Negative for fatigue, weakness, difficulty sleeping, frequent falls, excessive sweating or headache(s) Eyes Eyes: Negative for loss of peripheral vision, transient loss of vision, blurry vision, tunnel vision or double vision ENT ENT: Negative for headache(s), dizziness, Nosebleed/epistaxis or balance problems Cardio Chest Pain: No Palpitations: No Edema: Bilateral (Trace BLE edema, better since starting HCTZ) Muscle aches with walking: None Resp Respiratory: Positive for SOB with activity; negative for SOB at rest, SOB orthopnea\SOB lying down, paroxysmal nocturnal dyspnea or Cough GI GI: Negative nausea, heartburn, black,tarry stools or vomiting : Negative for hematuria Musc Musc: Negative for balance problems, muscle aches/ myalgia, muscle weakness or joint pain Skin Skin: Negative non-healing lesions, unusual bruising or rash Neuro Neuro: Negative for weakness, frequent falls, headache(s), blurry vision, double vision, dizziness, lightheadedness, orthostatic symptoms, near syncope, syncope or lack of coordination Yan Hematologic/Lymphatic: Negative for easy bruising or easy bleeding Endo Endo: Negative for fatigue, excessive sweating or increased thirst/drinking Psych Psych: Negative for anxiety or depression Allergy Allergy/Immunology: Negative for hives, Negative for rash Cardiology Exam Const Appearance: cooperative, healthy appearing, well developed, well groomed and no acute distress Nutritional Appearance: well nourished and average body habitus Orientation: alert, awake and oriented x3 Head Head: normal to inspection, normocephalic and atraumatic Ears: hearing grossly normal bilaterally and external ears normal Nose: external nose normal, nasal mucous membranes and turbinates normal, nares normal, septum normal, no nasal discharge Face and Sinus: face symmetric Mouth: oral mucosae normal, tongue normal, oropharynx normal and moist mucous membranes Teeth and gingiva: dentition normal Throat: posterior oropharynx normal, tonsils normal and uvula midline Eyes General: appearance normal, both eyes and all related structures Eyelids: eyelids normal Conjunctivae: conjunctivae normal Pupils: PERRL, normal by confrontation and accommodation normal EOM: EOM intact bilaterally Neck Neck: normal visual inspection, trachea midline and no JVD JVD: +5 Carotids: normal carotid upstroke and bounding pulses Chest Chest inspection: normal inspection of the chest, symmetric chest movement and normal respiratory effort Auscultation: Bilateral: Clear to Auscultation Cardio Palpation: normal PMI Rate: regular rate Rhythm: regular rhythm Heart sounds: S1 normal, S2 normal and normal, physiologic split S2; negative rub, gallop or murmur GI GI: normal to inspection, soft, no hepatosplenomegaly and bowel sounds present Neuro General: alert, awake, oriented x3, no focal sensory deficit, gait normal and moves all extremities Skin Skin: no rashes or lesions noted Extremities Pulses: Normal: Right Femoral Pulse, Left Femoral Pulse, Right Dorsalis Pedis Pulse, Left Dorsalis Pedis Pulse, Right Posterior Tibial Pulse, Left Posterior Tibial Pulse, Right Radial Pulse, Left Radial Pulse Lower Extremity Edema: None: Bilateral Musculoskel Musculoskeletal: No joint tenderness Psych Psychological: normal affect Assessment AND Plan 1. Dyspnea on exertion R06.09 Plan She does have dyspnea on exertion which does not appear to be getting better. I would recommend that we discontinue the hydrochlorothiazide and institute Lasix 40 mg a day. We will see whether this would make a difference now that her blood pressure is much better controlled. Recent stress testing did not demonstrate any evidence of ischemia thus excluding significant ischemia as a cause of the dyspnea on exertion 2. Essential hypertension I10 Plan She does have a history of essential hypertension which appears to be much better controlled at this particular time on the lisinopril. She will continue this together with the beta-janeth. 3. Presence of cardiac pacemaker Z95.0 Plan She does have a history of a dual-chamber permanent pacemaker. She continues to have routine pacemaker checks through our office. Last pacemaker interrogation demonstrated adequate function. No VT or VF episodes were noted and no episodes of atrial fibrillation were present. 4. Paroxysmal atrial fibrillation I48.0 Plan She does have a history of paroxysmal atrial fibrillation and is currently on amiodarone at a very low dose which she appears to be tolerating. Her pacemaker interrogation did not demonstrate any recurrence of the above. Plan Detail Other Medications New: Discontinued: Follow Up 3 Months (mmm) Coding Level of Care Code Off vis,est,level 4 Diagnoses Dyspnea on exertion R06.09 Essential hypertension I10 Presence of cardiac pacemaker Z95.0 Paroxysmal atrial fibrillation I48.0 Coding Level of Care Code Off vis,est,level 4 Diagnoses Dyspnea on exertion R06.09 Essential hypertension I10 Presence of cardiac pacemaker Z95.0 Paroxysmal atrial fibrillation I48.0 07/29/18 1017 <Electronically signed by Paul Michel MD> Date Paul Michel MD Cosigner Signature: Date (if applicable) CC: STRESS REPORT Observed: 06/23/2018 Status: F Source: [place] 11:28 AM [facility] REPOSITORY [facility] Cardiovascular Services [employer] [place] [address] MR#: [id number] Acct: [id number] Name: NELI CLAY Rep #: [id number] : 1935 82 From: Paul Michel MD Primary Care: Alissa Benjamin DO Status: REG CLI Ordering Dr: Sex: F C Stress Test Report Pharmacologic myocardial perfusion stress test. 82-year-old lady with a history of chest pain and shortness of breath and atrial fibrillation. Stress protocol: Resting EKG demonstrates atrial for ablation with a controlled ventricular response rate of 74 bpm frequent premature ventricular complexes are noted resting blood pressure 146/98 mmHg. 0.4 mg of regadenoson was infused per usual protocol followed by rapid intravenous saline flush injection continuous EKG monitoring was performed. Patient maintained atrial for ablation throughout the recording. Occasional premature ventricular complexes were noted. At rest there were no ST or T wave changes noted suggest abnormal flow reserve at peak infusion no ST or T wave changes were noted suggest abnormal flow reserve. No areas of EKG changes were noted to be of concern. The resting blood pressure 146/98 with a final blood pressure 118/80 mmHg. Myocardial perfusion protocol. 10.4 mCi of technetium 99m sestamibi was injected at rest. 0.4 mg of regadenoson was infused per usual protocol. Peak infusion 31.5 mCi of technetium 99m sestamibi was injected stress images were obtained stress and rest images were reconstructed and compared in the short axis vertical long horizontal long axis. Gated images were also obtained per Perfusion SPECT analysis: Review of the stress images demonstrate normal uptake of tracer noted in all areas of the myocardium. The resting images demonstrate normal uptake of tracer noted in all areas of the myocardium. No reversibility is noted suggest ischemia. Gated SPECT analysis: The gated ejection fraction is 74%. Conclusion: Normal pharmacologic myocardial perfusion stress test. Preserved ejection fraction. 06/23/18 1128 <Electronically signed by Paul Michel MD> Date Paul Michel MD CC: Alissa Benjamin DO; Angelica Paulson Date Dictated: 06/23/181122 Date Transcribed: 06/23/181122 Bankruptcy Paralegal: CO Signed CARDIOLOGY VISIT Observed: 06/18/2018 Status: F Source: [place] RE[place] 6:42 AM [facility] REPOSITORY [facility] [address] [place] [address] OFFICE VISIT Date of Service: 06/17/18 MR#: [id number] Acct: [id number] Name: NELI CLAY Rep #: [id number] : 1935 Provider: Angelica Paulson Age/Sex: 82/F [place] [facility] Status: Signed HPI HPI Details: NELI CLAY, is a 82 F who presents to the office today for concerns over elevated BP. She called last week with elevated readings. We started her on Lisinopril. She does have a history of paroxysmal atrial fibrillation, palpitations, right bundle branch block and pulmonary hypertension. In August 2017 she was in our office for an urgent appointment for shortness of breath. She was noted to have symptomatic sinus bradycardia and underwent a pacemaker placement. EKG today demonstrates atrial paced with a heart rate of 60. She did bring in her BP cuff today, her cuff is not accurate and has been running high. However, BP is still elevated. She still complains of SOB. This is not new. This has been ongoing and has been worked up. She is very active and is able to swim without any difficulty. However she now complains of neck tightness/fullness. She does not have any chest heaviness or tightness. She does not have any irregular heartbeats that she is aware of. She does not have any lightheadedness or dizziness. She does not have any lower extremity edema. She states that adding the Lasix after her last office visit for a few days did not make a difference with her shortness of breath. Intake Vital Signs06/17/18 Height 5 ft 4 in 06/17/18 Weight: 149 lb 06/17/18 Body Mass Index (BMI) 25.5 06/17/18 Blood Pressure 144/82 H 06/17/18 Blood Pressure Location Lt brachial Intake Visit Reasons: PER [facility] FROM [facility] Electrical Designer Required: No Accompanied by: none Is patient in pain?: No Allergies No Known Allergies Allergy (Verified 06/17/18 10:14) Medications amiodarone 200 mg tablet PO 30 Days #15 12/17/17 [History Confirmed 06/17/18] apixaban 5 mg tablet 5 mg PO BID #180 tab 01/09/18 [Rx Confirmed 06/17/18] metoprolol tartrate 25 mg tablet 25 mg PO BID #60 tab 04/07/18 [Rx Confirmed 06/17/18] lisinopril 10 mg tablet 10 mg PO BID #60 tab 06/17/18 [Rx Confirmed 06/17/18] PFSH Medical History Essential hypertension (Acute) Other secondary pulmonary hypertension (Chronic) Nonrheumatic tricuspid (valve) insufficiency (Chronic) Sinus bradycardia (Chronic) Paroxysmal atrial fibrillation (Chronic) Complete right bundle branch block (Chronic) Sick sinus syndrome (Chronic) Presence of cardiac pacemaker (Chronic) New onset atrial fibrillation (Chronic) Surgical History History of tonsillectomy (Resolved) H/O total hysterectomy (Resolved) History of cervical cancer (Chronic) FH: cholecystectomy (Suspected) Family History Mother CHF (congestive heart failure) Father Myocardial infarction Brother Heart disease Social History Smoking Status: Former smoker alcohol intake: never substance use type: does not use caffeine: No what type of physical activity do you participate in: none seatbelt use: always do you feel safe at home: Yes ROS Const Const: Positive for fatigue; negative for weakness, fever(s) or headache(s) Eyes Eyes: Negative for blind spots, loss of peripheral vision or transient loss of vision ENT ENT: Negative for headache(s) Cardio Chest Pain: No Palpitations: No Edema: None Muscle aches with walking: None Resp Respiratory: Positive for SOB with activity; negative for SOB at rest, SOB orthopnea\SOB lying down or Cough GI GI: Negative nausea, vomiting, heartburn or vomiting blood/hematemesis : Negative for hematuria Musc Musc: Positive for muscle aches/ myalgia Neuro Neuro: Negative for weakness or headache(s) Yan Hematologic/Lymphatic: Negative for easy bleeding Endo Endo: Positive for fatigue Cardiology Exam Const Appearance: cooperative, no acute distress and well developed Orientation: alert, awake and oriented x3 Head Head: normocephalic and atraumatic Mouth: moist mucous membranes Eyes General: appearance normal, both eyes and all related structures Conjunctivae: conjunctivae normal Pupils: PERRL EOM: EOM intact bilaterally Neck Neck: normal visual inspection, no lymphadenopathy and no JVD Carotids: Negative bruit Neck Mass: Negative Neck mass Chest Chest inspection: normal inspection of the chest, symmetric chest movement and Pacemaker/ICD Yes left pectoral incision Auscultation: Bilateral: Clear to Auscultation Cardio Palpation: normal PMI Rate: regular rate Rhythm: regular rhythm Heart sounds: S1 normal and S2 normal; negative rub, gallop or murmur GI GI: normal to inspection, soft, no hepatosplenomegaly and bowel sounds present; negative tender Neuro General: alert, awake, oriented x3, CN's II-XI intact bilaterally and moves all extremities Extremities Pulses: Normal: Right Posterior Tibial Pulse, Left Posterior Tibial Pulse, Right Radial Pulse, Left Radial Pulse Lower Extremity Edema: None: Bilateral Psych Psychological: normal affect Supplemental Info Echocardiogram in 2017 demonstrates an ejection fraction of 60%. Mild mitral valve insufficiency. Mild tricuspid valve insufficiency. RVSP 38 mmHg. Assessment AND Plan 1. Paroxysmal atrial fibrillation I48.0 Plan - DEXTER Hylton Patient has not had any symptomatic recurrence. We will continue to monitor with her pacemaker interrogations. She is on a rate limiting medication, she is currently also on amiodarone. Will need to continue to monitor thyroid and hepatic labs routinely. We will also need to continue to monitor chest x-rays and pulmonary function test. She is also anticoagulated with a factor Xa inhibitor. Orders Orders: 2. Presence of cardiac pacemaker Z95.0 Plan - DEXTER Hylton Pacemaker is functioning appropriately. We will continue to monitor at routine scheduled pacemaker interrogations. 3. Essential hypertension I10 Plan - DEXTER Hylton Blood pressure remains slightly elevated. We will have her increase her lisinopril to 10 mg twice a day. She will continue to monitor her blood pressure readings. Patient Instructions - DEXTER Hylton Increase your lisinopril top 10 mg twice a day 4. Chest discomfort R07.89 Plan - DEXTER Hylton Patient continues to complain of shortness of breath however she now complains of neck tightness and fullness. This is a new finding for patient will obtain a pharmacologic nuclear stress test in the near future to further evaluate. A pharmacologic stress test will be chosen because of the pacemaker. Orders Orders: Plan Detail Other Medications Changed: Additional Comments - DEXTER Hylton The above patient was discussed with Dr. Michel, he agrees with plan of care. Thank you for allowing us to participate in patient's plan of care, if you have any questions please do not hesitate to call. This note was generated using a voice recognition system and there may be incorrect words, spelling or punctuation errors that were not noted when reviewing the office note prior to saving. Follow Up 06/17/18 (Keep as is) Coding Level of Care Code Off vis,est,level 4 Diagnoses Paroxysmal atrial fibrillation I48.0 Presence of cardiac pacemaker Z95.0 Essential hypertension I10 Chest discomfort R07.89 Coding Level of Care Code Off vis,est,level 4 Diagnoses Paroxysmal atrial fibrillation I48.0 Presence of cardiac pacemaker Z95.0 Essential hypertension I10 Chest discomfort R07.89 06/17/18 1140 <Electronically signed by Angelica RENTERIA> Date Angelica RENTERIA 06/18/18 0642<Electronically signed by Paul Michel MD> Cosigner Signature: Date (if applicable) Paul Michel MD CC: Alissa Benjamin DO 12 LEAD EKG PERFORMED Observed: 06/17/2018 Status: F Source: [place] [facility] 10:07 AM [facility] [address] [place] [address] 12 Lead EKG performed by [facility] 06/17/18 1006 MR#: [id number] Acct: [id number] Name: NELI CLAY Rep #: [id number] : 1935 82 From: Angelica RENTERIA Attending Dr: Angelica Paulson Status: DEP AMB Ordering Dr: Angelica Paulson Date: 06/17/18 Location: [facility] Sex: F C Admitted: BMS/12 Lead EKG performed by [facility] ECG Report Interpretation Electronic atrial pacemaker -Right bundle branch block. -Combined atrial enlargement. ABNORMAL Electronically signed on 09/09/2018 at 15:36 by Paul Michel Software Version [id number] 09/09/18 1540 Date Angelica RENTERIA CC: Alissa Benjamin DO Date Dictated: 06/17/18 1006 Date Transcribed: 06/17/18 100 Bankruptcy Paralegal: SUSY Signed PACEMAKER CHECK Observed: 05/01/2018 Status: F Source: [place] 10:37 AM [facility] REPOSITORY [facility] [address] [place] [address] Pacemaker Check Date of Service: 04/28/18 1011 MR#: [id number] Acct: [id number] Name: NELI CLAY Rep #: [id number] : 1935 From: Jaylene Milan Age/Sex: 82/F Location: [facility] Status: Signed Billing Codes PM Device Codes: PM Dev Prog Eval, Dual 04/28/18 1015 <Electronically signed by Jaylene Milan > Date Jaylene Milan 05/01/18 1037<Electronically signed by Paul Michel MD> Cosigner Signature: Date (if applicable) Paul Michel MD CC: PULMONARY FUNCTION Observed: 04/04/2018 Status: F Source: [place] TEST 7:29 AM [facility] REPOSITORY [facility] Pulmonary Services/Neurology [address] [place] [address] MR#: [id number] Acct: [id number] Name: NELI CLAY Rep #: [id number] : 1935 82 From: Randell Brown DO Referring Dr: Angelica Paulson Status: REG CLI Ordering Dr: Date: Location: [facility] Sex: F C INTRODUCTION: The patient is an 82-year-old female who presents for pulmonary function testing secondary to a diagnosis of dyspnea on exertion. Respiratory therapy reports good patient effort. Bronchodilators were used during testing. INTERPRETATION: Forced expiration spirometry demonstrates no evidence of a large airways obstructive ventilatory defect, based upon a postbronchodilator FEV1/FVC of greater than 70%. There was no significant response to aerosolized bronchodilators. Spirograms are of good quality and plateau gradually. Body plethysmography was performed and reveals lung volumes to be within normal limits. Diffusing capacity by single breath CO is within normal limits at 85% of predicted. When compared to previous pulmonary function studies dated August 2017, there has been symmetric improvement in the patient's FEV1 and FVC. Total lung capacity is also improved. IMPRESSION: Essentially normal pulmonary function testing, with improvement noted since PFTs were last completed in August 2017. 04/04/18728 <Electronically signed by Randell Bhat DO> Date Randell Bhat DO CC: Alissa Benjamin DO; Angelica Paulson Date Dictated: 04/04/18724 Date Transcribed: 04/04/18724 Bankruptcy Paralegal: NIMISHA Signed CARDIOLOGY VISIT Observed: 03/19/2018 Status: F Source: [place] RE[place] 4:35 PM [facility] REPOSITORY [facility] [address] [place] [address] OFFICE VISIT Date of Service: 03/19/18 MR#: [id number] Acct: [id number] Name: NELI CLAY Rep #: [id number] : 1935 Provider: Angelica Paulson Age/Sex: 82/F Location: [facility] Status: Signed HPI HPI Details: NELI CLAY, is a 82 F who presents to the office today for an urgent appt for increased SOB. She does have a history of paroxysmal atrial fibrillation, palpitations, right bundle branch block and pulmonary hypertension. In August 2017 she was in our office for an urgent appointment for shortness of breath. She was noted to have symptomatic sinus bradycardia and underwent a pacemaker placement. EKG today demonstrates atrial paced with a HR of 60. Pt is concerned of SOB with exertion, specifically walking up steps. She feels that she is more SOB than what she needs to be. She also feels that this limits her exercise tolerance. She has done swimming for a few months. The indoor pool is closed, she plans on doing this after. She does not have any chest pain/heaviness. She does complain of leg numbness. She does not have any palpitations that she is aware of. She does not have any orthopnea. She does not have any syncope or edema. Intake Vital Signs03/19/18 Height 5 ft 4 in 03/19/18 Weight: 148 lb 03/19/18 Body Mass Index (BMI) 25.4 03/19/18 Blood Pressure 128/80 03/19/18 Blood Pressure Location Lt brachial Intake Visit Reasons: SOB, Fatigue Electrical Designer Required: No Accompanied by: none Is patient in pain?: No Allergies No Known Allergies Allergy (Verified 03/19/18 11:15) Medications Metoprolol Tartrate [Lopressor (Beta Janeth)] 25 mg PO BID 06/21/17 [History Confirmed 03/19/18] amiodarone 200 mg tablet PO 30 Days #15 12/17/17 [History Confirmed 03/19/18] apixaban 5 mg tablet 5 mg PO BID #180 tab 01/09/18 [Rx Confirmed 03/19/18] PFSH Medical History Other secondary pulmonary hypertension (Chronic) Nonrheumatic tricuspid (valve) insufficiency (Chronic) Sinus bradycardia (Chronic) Paroxysmal atrial fibrillation (Chronic) Complete right bundle branch block (Chronic) Sick sinus syndrome (Chronic) Presence of cardiac pacemaker (Chronic) New onset atrial fibrillation (Chronic) Surgical History History of tonsillectomy (Resolved) H/O total hysterectomy (Resolved) History of cervical cancer (Chronic) FH: cholecystectomy (Suspected) Family History Mother CHF (congestive heart failure) Father Myocardial infarction Brother Heart disease Social History Smoking Status: Former smoker alcohol intake: never substance use type: does not use caffeine: No what type of physical activity do you participate in: none seatbelt use: always do you feel safe at home: Yes ROS Const Const: Positive for fatigue; negative for weakness, fever(s) or headache(s) Eyes Eyes: Negative for blind spots, loss of peripheral vision or transient loss of vision ENT ENT: Negative for headache(s), dizziness, tinnitus or Nosebleed/epistaxis Cardio Chest Pain: No Palpitations: No Edema: None Muscle aches with walking: None Resp Respiratory: Positive for SOB with activity; negative for SOB at rest, SOB orthopnea\SOB lying down or Cough GI GI: Negative nausea, vomiting, heartburn or vomiting blood/hematemesis : Negative for hematuria Musc Musc: Positive for muscle aches/ myalgia Neuro Neuro: Negative for weakness, headache(s), dizziness, near syncope, syncope, lightheadedness or orthostatic symptoms Yan Hematologic/Lymphatic: Negative for easy bleeding Endo Endo: Positive for fatigue Cardiology Exam Const Appearance: cooperative, no acute distress and well developed Orientation: alert, awake and oriented x3 Head Head: normocephalic and atraumatic Mouth: moist mucous membranes Eyes General: appearance normal, both eyes and all related structures Conjunctivae: conjunctivae normal Pupils: PERRL EOM: EOM intact bilaterally Neck Neck: normal visual inspection, no lymphadenopathy and no JVD Carotids: Negative bruit Neck Mass: Negative Neck mass Chest Chest inspection: normal inspection of the chest and symmetric chest movement Auscultation: Bilateral: Clear to Auscultation Cardio Palpation: normal PMI Rate: regular rate Rhythm: regular rhythm Heart sounds: S1 normal and S2 normal; negative rub, gallop or murmur GI GI: normal to inspection, soft, no hepatosplenomegaly and bowel sounds present; negative tender Neuro General: alert, awake, oriented x3, CN's II-XI intact bilaterally and moves all extremities Extremities Pulses: Normal: Right Posterior Tibial Pulse, Left Posterior Tibial Pulse, Right Radial Pulse, Left Radial Pulse Lower Extremity Edema: None: Bilateral Psych Psychological: normal affect Assessment AND Plan 1. Dyspnea on exertion R06.09 Plan - DEXTER Hylton With patient's shortness of breath will obtain labs. Will also obtain a pulmonary function test and chest x-ray as she is on amiodarone. If all of these tests are normal would consider adjusting pacemaker settings. Orders Orders: 2. Fatigue, unspecified type R53.83 Plan - DEXTER Hylton Will obtain labs to evaluate. Orders Orders: 3. New onset atrial fibrillation I48.91 Plan - DEXTER Hylton Patient has not had any symptomatic recurrence. This is being monitored through her pacemaker interrogations. She will remain on her low-dose amiodarone, beta-janeth and anticoagulant. Orders Orders: 4. Presence of cardiac pacemaker Z95.0 Plan - DEXTER Hylton If patient's short of breath at her next pacemaker check will consider adjusting pacemaker settings. Plan Detail Other Orders Orders: Additional Comments - DEXTER Hylton The above patient was discussed with Dr. Michel, he agrees with plan of care. Thank you for allowing us to participate in patient's plan of care, if you have any questions please do not hesitate to call. This note was generated using a voice recognition system and there may be incorrect words, spelling or punctuation errors that were not noted when reviewing the office note prior to saving. Follow Up 03/19/18 (Keep as is) Coding Level of Care Code Off vis,est,level 4 Diagnoses Dyspnea on exertion R06.09 Fatigue, unspecified type R53.83 Fatigue type: unspecified New onset atrial fibrillation I48.91 Presence of cardiac pacemaker Z95.0 Coding Level of Care Code Off vis,est,level 4 Diagnoses Dyspnea on exertion R06.09 Fatigue, unspecified type R53.83 Fatigue type: unspecified New onset atrial fibrillation I48.91 Presence of cardiac pacemaker Z95.0 03/19/18 1415 <Electronically signed by Angelica RENTERIA> Date Angelica RENTERIA 03/19/18 1635<Electronically signed by Paul Michel MD> Cosigner Signature: Date (if applicable) Paul Michel MD CC: Alissa Benjamin DO CBC W/DIFF, AUTOMATED Collected: 03/19/2018 Status: F Source: GINGER 12:37 PM [facility] REPOSITORY TYPE CODE TESTS RESULT OUT OF RANGE REFERENCE UNITS LAB L100.1000 4.4-11.0 K/mm3 Normal WBC 5.9 LAB L100.1200 4.2-5.4 M/mm3 Normal RBC 4.41 LAB L100.1300 12.0-15.0 g/dl Normal HGB 13.6 LAB L100.1400 37-47 % Normal HCT 41.5 LAB L100.1500 81-99 fL Normal MCV 94.1 LAB L100.1600 27.0-32.0 pg Normal MCH 30.8 LAB L100.1700 32-36 g/gl Normal MCHC 32.8 LAB L100.1810 11.6-14.6 % Normal RDW CV 12.7 LAB L100.1820 35.1-43.9 fl Normal RDW SD 43.7 LAB L100.1900 150-450 K/mm3 Normal PLT 207 LAB L100.2000 6.2-12.0 fl Normal MPV 10.8 LAB L100.2100 47-70 % Normal NEUT% 61.1 LAB L100.2200 19-41 % Normal LY% 28.2 LAB L100.2300 0-10 % Normal MONO% 7.4 LAB L100.2400 0-5 % Normal EO% 2.2 LAB L100.2500 0-1 % Normal BASO% 0.9 LAB L100.2550 0.0-0.9 % Normal IM GRAN % 0.200 Result Comment: IG% - Immature Granulocytes (promyelocytes, myelocytes and metamyelocytes) > 1% indicates that a LEFT SHIFT is Present. LAB L100.2620 2.0-7.7 X10 3/uL Normal Absolute Neut 3.6 LAB L100.2720 0.83-4.51 X10 3/ul Normal Absolute Lymph 1.65 Performed By: #### L100.0100 #### [facility] [address] [place], [address] BASIC METABOLIC Collected: 03/19/2018 Status: F Source: GINGER PROFILE (BMP) 12:37 PM [facility] REPOSITORY TYPE CODE TESTS RESULT OUT OF RANGE REFERENCE UNITS LAB L501.0100 74-106 mg/dL Normal GLU 87 Result Comment: Please note revised GLUCOSE reference range effective 2017. LAB L501.1000 7-18 mg/dL High BUN 22 LAB L501.1100 0.55-1.02 mg/dL Normal CREAT,SERUM 0.99 Result Comment: The validity of the calculated GFR AND GFRAA in patients over 70 years has not been determined. Clinical correlation is essential. LAB L501.1110 >60 mL/min Low EST GFR 57 Result Comment: Non- GFR Calc LAB L501.1115 >60 mL/min Normal EST GFR - AA 70 Result Comment: GFR Calc LAB L501.1300 10-20 RATIO High BUN/CRE 22.3 LAB L501.2200 8.5-10.1 mg/dL CA Normal 9.3 LAB L501.5300 136-145 mmol/L NA Normal 136 LAB L501.5600 3.5-5.1 mmol/L K Normal 4.2 LAB L501.5900 98-107 mmol/L CL Normal 103 LAB L501.6100 21.0-32.0 mmol/L Normal CO2 28.0 LAB L501.6200 5-15 Normal GAP 5 Performed By: #### L500.2500, L503.6620 #### [facility] [address] [place], [address] BNP,B-TYPE NATRIURETIC Collected: 03/19/2018 Status: F Source: [place] PEPTIDE 12:37 PM [facility] REPOSITORY TYPE CODE TESTS RESULT OUT OF RANGE REFERENCE UNITS LAB L503.6620 0-100 pg/mL High B-TYPE 198.4 ELOISA PEP Performed By: #### L500.2500, L503.6620 #### [facility] [address] [place], [address] CHEST PA AND LATERAL Observed: 03/19/2018 Status: F Source: GINGER 12:18 PM [facility] REPOSITORY [facility] Imaging Services [address] [facility] [place] [address] Chest PA and Lateral MR#: [id number] Acct: [id number] Name: NELI CLAY Rep #: [id number] : 1935 F 82 From: Bebeto Beaver MD PCP: Alissa Benjamin DO Status: REG CLI Study: Chest PA and Lateral Date of Exam: 03/19/18 Exam# [id number] Ordering Dr: Angelica Paulson STUDY: X-RAY CHEST REASON FOR EXAM: Female, 82 years old. Shortness of breath x3 weeks TECHNIQUE: PA and lateral views of the chest. COMPARISON: Previous study of September 17, 2017 FINDINGS: There is a left-sided bipolar pacemaker. The lungs are clear and expanded. There is minimal blunting of the posterior costophrenic angles. Normal size heart. Normal mediastinum and dave. Normal visualized pulmonary arteries. There are calcified plaques of the aortic arch. Normal visualized thoracic spine. Normal visualized ribs, clavicles, and shoulders. There is no demonstrated abnormality of the visualized soft tissue structures of the upper abdomen. RAD/Chest PA and Lateral IMPRESSION: 1. Minimal blunting of the posterior costophrenic angles, similar to the previous study. 2. Calcified plaques of the aortic arch. 3. No acute cardiopulmonary disease process is seen. Electronically Signed: Bebeto Beaver MD at 17:16 EDT , Service support , CC: Alissa Benjamin DO; Angelica Paulson Bankruptcy Paralegal: Signed CARDIOLOGY VISIT Observed: 12/17/2017 Status: F Source: [place] REPORT 4:27 PM [facility] REPOSITORY [facility] [address] [place] [address]. [address] [place] [address] OFFICE VISIT Date of Service: 12/17/17 MR#: [id number] Acct: [id number] Name: NELI CLAY Rep #: [id number] : 1935 Provider: Angelica Paulson Age/Sex: 82/F [place] [facility] Status: Signed HPI HPI Details: NELI CLAY, is a 82 F who presents to the office today for a cardiovascular follow-up. She does have a history of paroxysmal atrial fibrillation, palpitations, right bundle branch block and pulmonary hypertension. In August 2017 she was in our office for an urgent appointment for shortness of breath. She was noted to have symptomatic sinus bradycardia and underwent a pacemaker placement. Pt sts that overall she is doing okay. She notes that she does have fatigue in the afternoon. When she has this she notes that her BP is on the lower side. Her SOB has improved. She does note that she can work in her yard but she she does get SOB walking around her block but it is on an incline. She does not have any chest pain. She does not have any orthopnea. She does not have any palpitations. She does not have any lightheadedness/dizziness. She does not have any edema. Intake Vital Signs12/17/17 Height 5 ft 4 in 12/17/17 Weight: 147 lb 12/17/17 Body Mass Index (BMI) 25.2 12/17/17 Blood Pressure 122/62 Intake Visit Reasons: 6 M Electrical Designer Required: No Accompanied by: none Is patient in pain?: No Allergies No Known Allergies Allergy (Verified 12/17/17 10:05) Medications Metoprolol Tartrate [Lopressor (Beta Janeth)] 25 mg PO BID 06/21/17 [History Confirmed 12/17/17] apixaban 5 mg tablet 5 mg PO BID 09/26/17 [History Confirmed 12/17/17] amiodarone 200 mg tablet PO 30 Days #15 12/17/17 [History Confirmed 12/17/17] Ejection fraction %: 60 to 64 PFSH Medical History Other secondary pulmonary hypertension (Chronic) Nonrheumatic tricuspid (valve) insufficiency (Chronic) Sinus bradycardia (Chronic) Paroxysmal atrial fibrillation (Chronic) Complete right bundle branch block (Chronic) Sick sinus syndrome (Chronic) Presence of cardiac pacemaker (Chronic) New onset atrial fibrillation (Chronic) Surgical History History of tonsillectomy (Resolved) H/O total hysterectomy (Resolved) History of cervical cancer (Chronic) FH: cholecystectomy (Suspected) Family History Mother CHF (congestive heart failure) Father Myocardial infarction Brother Heart disease Social History Smoking Status: Former smoker alcohol intake: never substance use type: does not use caffeine: No what type of physical activity do you participate in: none seatbelt use: always do you feel safe at home: Yes ROS Const Const: Positive for fatigue; negative for weakness, fever(s) or headache(s) Eyes Eyes: Negative for blind spots, loss of peripheral vision or transient loss of vision ENT ENT: Negative for headache(s), dizziness, tinnitus or Nosebleed/epistaxis Cardio Chest Pain: No Palpitations: No Edema: None Muscle aches with walking: None Resp Respiratory: Positive for SOB with activity; negative for SOB at rest, SOB orthopnea\SOB lying down or Cough GI GI: Negative nausea, vomiting, heartburn or vomiting blood/hematemesis : Negative for hematuria Musc Musc: Negative for muscle aches/ myalgia Neuro Neuro: Negative for weakness, headache(s), dizziness, near syncope, syncope, lightheadedness or orthostatic symptoms Yan Hematologic/Lymphatic: Negative for easy bleeding Endo Endo: Positive for fatigue Cardiology Exam Const Appearance: cooperative, no acute distress and well developed Orientation: alert, awake and oriented x3 Head Head: normocephalic and atraumatic Mouth: moist mucous membranes Eyes General: appearance normal, both eyes and all related structures Conjunctivae: conjunctivae normal Pupils: PERRL EOM: EOM intact bilaterally Neck Neck: normal visual inspection, no lymphadenopathy and no JVD Carotids: Negative bruit Neck Mass: Negative Neck mass Chest Chest inspection: normal inspection of the chest and symmetric chest movement Auscultation: Bilateral: Clear to Auscultation Cardio Palpation: normal PMI Rate: regular rate Rhythm: regular rhythm Heart sounds: S1 normal and S2 normal; negative rub, gallop or murmur GI GI: normal to inspection, soft, no hepatosplenomegaly and bowel sounds present; negative tender Neuro General: alert, awake, oriented x3, CN's II-XI intact bilaterally and moves all extremities Extremities Pulses: Normal: Right Posterior Tibial Pulse, Left Posterior Tibial Pulse, Right Radial Pulse, Left Radial Pulse Lower Extremity Edema: None: Bilateral Psych Psychological: normal affect Assessment AND Plan 1. Paroxysmal atrial fibrillation I48.0 Plan - DEXTER Hylton Patient has not had any symptomatic recurrence. We will continue to monitor with her pacemaker interrogations. She is on a rate limiting medication, she is currently also on amiodarone. Will need to continue to monitor thyroid and hepatic labs routinely. We will also need to continue to monitor chest x-rays and pulmonary function test. She is also anticoagulated with a factor Xa inhibitor. Orders Orders: 2. Presence of cardiac pacemaker Z95.0 Plan - DEXTER Hylton Pacemaker is functioning appropriately. We will continue to monitor at routine scheduled pacemaker interrogations. 3. Other fatigue R53.83 Plan - DEXTER Hylton Patient does complain of low blood pressure readings in the afternoon. She will hold her Lasix. She was advised that if this does not help with her fatigue or she notes that she is more short of breath that she should let our office know. 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) Coding Level of Care Code Off vis,est,level 4 Diagnoses Paroxysmal atrial fibrillation I48.0 Presence of cardiac pacemaker Z95.0 Other fatigue R53.83 Fatigue type: other Coding Level of Care Code Off vis,est,level 4 Diagnoses Paroxysmal atrial fibrillation I48.0 Presence of cardiac pacemaker Z95.0 Other fatigue R53.83 Fatigue type: other 12/17/17 1319 <Electronically signed by Angelica RENTERIA> Date Angelica RENTERIA 12/17/17 1627<Electronically signed by Paul Michel MD> Cosigner Signature: Date (if applicable) Paul Michel MD CC: Alissa Benjamin DO THYROID STIM HORMONE Collected: 12/17/2017 Status: F Source: GINGER (TSH) 11:13 AM [facility] REPOSITORY TYPE CODE TESTS RESULT OUT OF RANGE REFERENCE UNITS LAB L501.9520 0.358-3.74 uIU/mL Normal TSH 1.41 Performed By: #### L501.9520, L506.0400 #### [facility] [address] [place], [address] T4 FREE DIRECT Collected: 12/17/2017 Status: F Source: [place] 11:13 AM [facility] REPOSITORY TYPE CODE TESTS RESULT OUT OF RANGE REFERENCE UNITS LAB L506.0400 0.76-1.46 ng/dL Normal T4 FREE 1.21 DIRECT Performed By: #### L501.9520, L506.0400 #### [facility] [address] [place], [address] PACEMAKER CHECK Observed: 10/27/2017 Status: F Source: [place] 10:46 AM [facility] REPOSITORY [facility] [address] [place] [address] Pacemaker Check Date of Service: 10/22/17 1102 MR#: [id number] Acct: [id number] Name: NELI CLAY Rep #: [id number] : 1935 From: Jaylene Milan Age/Sex: 82/F Location: [facility] Status: Signed Comments Summary Comments: Dual Chamber Pacemaker Evaluation: 6 wk post PPM implant interrogation completed. Interrogation shows atrial burden 0% and no NSVT episodes since implant. Left pectoral pocket/incision w/o s/s of infection or erosion. Pt offers no cardiac complaints. Presenting rhythm shows AAI pacing @ 60 ppm. CONTINUOUS IMPROVEMENT SPECIALIST=<1%. Battery longevity approx 8.5 yrs. RV lead impedance 1035 Ohms today and 897 Ohms on 09/07/17. Trends show steady increase since implant. Atrial impedance, ventricular sensing and A/V pace/sense thresholds remain stable. Unable to check atrial sensing d/t no intrinsic P waves with rate decrease. A/V amplitudes decreased with adequate safety margin. Counters cleared. Next f/u appt scheduled for in 6 mos. Pt doesn't want remote monitoring system. 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 Paul Michel/[facility] Patient Characteristics Atrial Indication: sick sinus syndrome, Atrial tachycardia (paroxysmal) Ejection fraction %: 60 to 64 (12/07/2016) By: Echo Pacemaker Dependent: Yes (Nonintrinsic P waves today) Device Characteristics Device: Dual Chamber Type: Pacemaker Remote Follow-Up: No Device Physical Exam Yes Incision well healed and No drainage Leads Lead #1 Livestock Slaughterer Lead 1: [employer] Model Lead 1: 7740 MRI Serial# Lead 1: [id number] Date Implanted Lead 1: 09/16/17 Position Lead 1: RA Lead #2 Livestock Slaughterer Lead 2: [employer] Model Lead 2: 7741 Serial# Lead 2: [id number] Date Implanted Lead 2: 09/16/17 Position Lead 2: RV Diagnostics Pacing % RA Pacin % RV Pacin Mode Switching Total # Episodes: 0 % Mode switched: 0 Arrhythmias Non-Sust Episodes: 0 Measurements Battery Magnet Rate (bmp): 100 Battery Status: MELANI Predicted Remaining Longevity (months or years): 10.5 years RA Measurements Impedance (Ohms): 678 Threshold Voltage: 1.0 @ PW(ms): 0.4 RV Measurements Signal Amplitude (mV): 10.35 Impedance (Ohms): 1,035 Threshold Voltage: 0.5 @ PW(ms): 0.4 Matheus Settings Matheus Settings Pacemaker Mode DDDR Output/Sensing V/PW (ms) 3.5/0.4 3.5/0.4 Sensitivity RA RV LV Comments: AV search+ on 400 ms Billing Codes PM Device Codes: PM Dev Prog Eval, Dual Assessment AND Plan Problems 1. Presence of cardiac pacemaker Z95.0 2. Sick sinus syndrome I49.5 3. Complete right bundle branch block I45.10 4. Paroxysmal atrial fibrillation I48.0 5. Sinus bradycardia R00.1 10/25/17 1738 <Electronically signed by Jaylene Milan > Date Jaylene Milan 10/27/17 1046<Electronically signed by Paul Michel MD> Cosigner Signature: Date (if applicable) Paul Michel MD CC: OFFICE VISIT REPORT Observed: 09/25/2017 Status: F Source: GINGER 10:33 AM [facility] [place] [address] OFFICE VISIT Date of Service: 09/24/17 MR#: [id number] Acct: [id number] Patient: NELI CLAY Rep #: [id number] : 1935 Provider: Jaylene Milan Age/Sex: 82/F [place] [facility] Status: Signed Comments Summary Comments: Wound Check: 1 wk post PPM implant wound check completed. Left pectoral pocket/incision 4x4 dressing that pt put on site removed. Steri-strips intact with no new drainage noted. Steri-strips loose so removed. Incision well approximated w/o redness or drainage. Tape irritation noted from steri-strips and opsite. Tape burn noted. No hematoma or ecchymosis noted. Pt afebrile T-97.9 degrees F temporally. Left arm restrictions reinforced until 6 wk post implant check completed. F/u appt scheduled. All questions answered. 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 Scientific Model Lead 1: 7740 MRI Serial# Lead 1: [id number] Date Implanted Lead 1: 09/16/17 Position Lead 1: RA Lead #2 Livestock Slaughterer Lead 2: [employer] Model Lead 2: 7741 Serial# Lead 2: [id number] Date Implanted Lead 2: 09/16/17 Position Lead 2: RV Matheus Settings Matheus Settings Pacemaker Mode DDDR Output/Sensing V/PW (ms) 3.5/0.4 3.5/0.4 Sensitivity RA RV LV Comments: AV search+ on 400 ms Billing Codes Nurse, Teaching, Wound Ck (no charge): Yes Assessment AND Plan Problems 1. Sinus bradycardia R00.1 2. Paroxysmal atrial fibrillation I48.0 3. Complete right bundle branch block I45.10 4. Sick sinus syndrome I49.5 5. Presence of cardiac pacemaker Z95.0 09/24/17 1500 <Electronically signed by Jaylene Milan > Date Jaylene Milan 09/25/17 1033<Electronically signed by Paul Michel MD> Cosigner Signature: Date (if applicable) Paul Michel MD CC: DISCHARGE INSTRUCTION Observed: 09/17/2017 Status: F Source: [place] 7:59 AM [facility] REPOSITORY [facility] Medical Records Department [address] [place] [address] Instructions for Home/Discharge Instructions 09/17/17 0755 MR#: [id number] Acct: [id number] Name: NELI CLAY Rep #: [id number] : 1935 82 From: Paul Michel MD PCP: Alissa Benjamin DO [place] [facility] Diet: No Restrictions Discharge Activity: May Not Drive Return to work on:: 10/04/17 May resume sexual activity in: 2 weeks Call your doctor if your incision/area has: Continuous Slow Oozing, Sudden Increased Bleeding, Increased Pain/ Swelling, Increased Redness, Foul Smelling Discharge, Swelling at the incision site Call your doctor if you observe: Fever of 101 or Higher, Shortness of breath, Dizziness, Fainting spells, Swelling in the ankles, Chest pain, Prolonged hiccoughing, Increased palpitations (irregular heartbeat) Change Dressing in (Days):: 3 Remove Dressing in (days):: 3 Cleanse incision/area with: Do not get Incision Wet, Keep Dressing Clean AND Dry Additional Dressing/Incision Instructions:: When dressing is removed, wash and dry incision. Keep covered with a light bandage if it is rubbing against your clothing. Do not cover the incision with an airtight bandage. Change the bandage daily. Do not remove steri strips. The strips will fall off on their own. Additional Instructions: Signs and Symptoms to Report to Your Doctor at Once - call your doctor's office or Doctor's Registry ([phone]) Call 911 or go to the nearest Emergency Department if you feel you need urgent care. *Infection (fever, increased redness or swelling at the incision site, drainage from the incision increased pain at the pacemaker site) *Shortness of breath *Dizziness *Fainting spells *Swelling in the ankles *Chest pain *Prolonged hiccoughing *Increased palpitaitons (irregular heartbeat) Medications: Take your pain medication as directed. Refer to your discharge instruction sheet for a list of medications you are to take. Allergies/Adverse Reactions: Allergies No Known Allergies Allergy (Verified 06/21/17 08:57) Medications to take at Discharge Metoprolol Tartrate [Lopressor (Beta Janeth)] 25 mg PO BID 06/21/17 furosemide 40 mg tablet 40 ml PO DAILY 30 Days #30 08/20/17 Primary Care Physician: Alissa Benjamin DO [Primary Care Provider] - When: sep 24 at 10:30am Proposed Discharge Date: 09/17/17 09/17/17 0759 <Electronically signed by Paul Michel MD> Date Paul Michel MD CC: Alissa Benjamin DO CHEST 1 VIEW Observed: 09/17/2017 Status: F Source: [place] 1:23 AM [facility] REPOSITORY [facility] [place] [address] Chest 1 View MR#: [id number] Acct: [id number] Name: NELI CLAY Rep #: [id number] : 1935 F 82 From: Carlos Alberto Cuellar PCP: Alissa Benjamin DO Status: REG SDC Study: Chest 1 View Date of Exam: 09/17/17 Exam# [id number] Ordering Dr: Paul Michel MD STUDY: X-RAY CHEST REASON FOR EXAM: Female, 82 years old. Status post pacemaker insertion. TECHNIQUE: AP portable chest in inspiration and expiration. COMPARISON: June 28, 2017. FINDINGS: The lungs are clear and expanded. There is no demonstrated pleural abnormality. No pneumothorax. Normal size heart. Normal mediastinum and dave. Normal visualized pulmonary arteries. Normal visualized aortic arch and descending thoracic aorta. Normal visualized thoracic spine. Normal visualized ribs, clavicles, and shoulders. Cardiac pacemaker overlies left hemithorax with leads overlying the right atrium and right ventricle. There is no demonstrated abnormality of the visualized soft tissue structures of the upper abdomen. RAD/Chest 1 View IMPRESSION: No acute cardiopulmonary disease. No pneumothorax. Cardiac pacemaker in its expected location. Electronically Signed: Carlos Alberto Cuellar MD at 7:03 EST , Service support , CC: Paul Michel MD; Alissa Benjamin DO Bankruptcy Paralegal: Signed CHEST PA AND LATERAL Observed: 09/17/2017 Status: F Source: GINGER 12:01 AM [facility] REPOSITORY [facility] Imaging Services [address] [place] [address] Chest PA and Lateral MR#: [id number] Acct: [id number] Name: NELI CLAY Rep #: [id number] : 1935 F 82 From: Carlos Alberto Cuellar PCP: Alissa Benjamin DO Status: REG SDC Study: Chest PA and Lateral Date of Exam: 09/17/17 Exam# [id number] Ordering Dr: Paul Michel MD STUDY: X-RAY CHEST REASON FOR EXAM: Female, 82 years old. Status post pacemaker insertion. Evaluate for pneumothorax. TECHNIQUE: PA and lateral chest in inspiration. COMPARISON: September 17, 2015 at 6:42 AM. June 28, 2017. FINDINGS: The lungs are clear and expanded. There is no demonstrated pleural abnormality. No pneumothorax. Normal size heart. Normal mediastinum and dave. Normal visualized pulmonary arteries. Normal visualized aortic arch and descending thoracic aorta. Normal visualized thoracic spine. Normal visualized ribs, clavicles, and shoulders. Cardiac pacemaker left hemithorax. Cardiac pacer wire leads overlie the right atrium and right ventricle. There is no demonstrated abnormality of the visualized soft tissue structures of the upper abdomen. RAD/Chest PA and Lateral IMPRESSION: No acute cardiopulmonary disease. No pneumothorax. Cardiac pacemaker in its expected location. Electronically Signed: Carlos Alberto Cuellar MD at 7:17 EST , Service support , CC: Paul Michel MD; Alissa Benjamin DO Bankruptcy Paralegal: Signed ALLERGIES ALLERGIES DATE TYPE / CODE NAME / CODE REACTION SEVERITY SOURCE 07/29/2018 Drug No Known Unknown [facility] Allergy/4160 Allergies/F00 [facility] 32454(SNOMED [id number](RXNOR Repository CT) M) ENCOUNTERS ENCOUNTERS ADMIT/DISCHARGE ACCOUNT ADMITTING ENCOUNTER LOCATION SOURCE NUMBER CLASS 09/10/2018 [id number] Ambulatory BMSBuilding:B [place] [facility] MS.[facility] Repository 09/08/2018 [id number] Ambulatory BMSBuilding:B [place] 5 MS.CF.[facility] Repository 09/08/2018/ [id number] Ambulatory [place] [facility] 6 [facility] ing:[facility] Repository 09/04/2018/ [id number] Ambulatory BMSBuilding:B Ginger 9 7 MS.[facility] Repository 09/04/2018 [id number] Ambulatory [facility]inger [facility]inger 2 [facility] ing[facility]LAB Repository 09/04/2018 [id number] Ambulatory BMSBuilding:B [place] 1 [facility] Repository 08/29/2018 [id number] Ambulatory Ginger Ginger 6 [facility] ing:LAB Repository 07/29/2018/ [id number] Ambulatory BMSBuilding:B Ginger 8 9 [facility] Repository 07/28/2018 [id number] Ambulatory Building:[facility] [place] [facility] Repository 06/23/2018 [id number] Ambulatory [place] 6 [facility] ing:CVS Repository 06/23/2018 [id number] Ambulatory BMSBuilding:W Ginger 5 [facility] Repository 06/17/2018/ [id number] Ambulatory BMSBuilding:B [place] 8 4 [facility] Repository 04/28/2018/ [id number] Ambulatory BMSBuilding:B [place] 8 9 [facility] Repository 04/04/2018 [id number] Ambulatory BMSBuilding:W Ginger 7 [facility] Hospital Repository 04/03/2018 [id number] Ambulatory Ginger Ginger 2 [facility] ing:PSN Repository 03/19/2018 [id number] Ambulatory Ginger Ginger 9 [facility] ing:RAD Repository 03/19/2018/ [id number] Ambulatory BMSBuilding:B Ginger 8 3 [facility] Hospital Repository 12/17/2017 [id number] Ambulatory [place] [facility] 1 [facility] ing:LAB Repository 12/17/2017/ [id number] Ambulatory BMSBuilding:B Ginger 8 8 [facility] Hospital Repository 12/11/2017 [id number] Ambulatory BMS [place] 0 [facility] Repository 10/22/2017/ [id number] Ambulatory BMSBuilding:B Ginger 8 1 [facility] Repository 09/24/2017/ [id number] Ambulatory BMSBuilding:B [place] 8 6 [facility] Repository 09/17/2017 [id number] Ambulatory BMSBuilding:B Ginger 0 MS.[facility] Repository 09/16/2017 [id number] Ambulatory BMSBuilding:B Ginger 5 [facility] Repository 09/16/2017/ [id number] Ambulatory Ginger Ginger 8 6 [facility] ing:CLSPRoom: Repository [id number] 09/16/2017 [id number] Ambulatory BMSBuilding:W Ginger 7 [facility] Repository PAYERS PAYERS ENCOUNTER GUARANTOR PAYER SUBSCRIBER SOURCE 09/10/2018 NELI B Primary NELI B Ginger [id number] Insurance:HUMANA PATTERSONDOB: Community [place] [id number] [place] Number[place] Repository [address]Rny: 330 [id number] [phone] () Date:1266-73-17HX[address]46[address]WP: 09/10/2018 Secondary NOT GIVENUNK Ginger Insurance:SELF PAY [facility] Number: Effective Repository Date:2018-09-10 09/08/2018 NELI B Primary NELI B [place] [id number] Insurance:HUMANA PATTERSONDOB: Community BRAM[place] MEDICARE [place]icy [id number] [place] Number[place] Repository [address]Kyb: 330 [id number] [phone] () Date:[id number] [address]AR: 09/08/2018 Secondary NOT GIVENUNK Ginger Insurance:SELF PAY [facility] Number: Effective Repository Date:2018-09-08 09/08/2018 NELI B Primary NELI B [place] [id number] Insurance:HUMANA PATTERSONDOB: Community BRAMBLE MEDICARE PPOPolicy [id number] [place] [address], [place]: Repository [phone]: 330 [id number] [phone] (HP) Date:9129-10-11TC [address] [address]TN: 09/08/2018 Secondary NOT GIVENUNK Ginger Insurance:SELF PAY [facility] Number: Effective Repository Date:2018-09-04 09/04/2018 NELI B Primary NELI B [place] [id number] Insurance:HUMANA PATTERSONDOB: Community BRAMBLE MEDICARE PPOPolicy [id number] [place] [address], [place]: Repository [phone]: (330 [id number] [phone]) Date:3393-25-88EM [address] [address]RV: 09/04/2018 Secondary NOT GIVENUNK [place] Insurance:SELF PAY [facility] Number: Effective Repository Date:2018-09-04 09/04/2018 NELI B Primary NELI B Ginger [id number] Insurance:HUMANA PATTERSONDOB: Community BRAMBLE MEDICARE PPOPolicy [id number], [place] Number: Repository [phone]: (330 [id number] [phone] () Date:4422-95-20SO [address] [address]SV: 09/04/2018 Secondary NOT GIVENUNK [place] Insurance:SELF PAY [facility] Number: Effective Repository Date:2018-09-04 09/04/2018 NELI B Primary NELI B [place] [id number] Insurance:HUMANA PATTERSONDOB: Community BRAMBLE MEDICARE PPOPolicy [id number], [place] Number: Repository [address]Hcm: 330 [id number] [phone] (HP) Date:0854-28-28DL [address] [address]GR: 09/04/2018 Secondary NOT GIVENUNK Ginger Insurance:SELF PAY [facility] Hospital Number: Effective Repository Date:2018-09-04 08/29/2018 NELI B Primary NELI B G[place] [id number] Insurance:HUMANA PATTERSONDOB: Community BRAM[place] MEDICARE [place]olicy [id number] [address]Qfc: (330) [id number] [phone] (HP) Date:8131-49-11SH[address] [address]IW: 08/29/2018 Secondary NOT GIVENUNK Ginger Insurance:SELF PAY [facility] Number: Effective Repository Date:2018-08-29 07/29/2018 NELI B Primary NELI B [place] [id number] Insurance:HUMANA PATTERSONDOB: Community BRAMBLE MEDICARE PPOPolicy [id number] [address]Efq: (330) [id number] [phone] () Date:5627-95-33[place], [place] [address]WP: 07/29/2018 Secondary NOT GIVENUNK [place] Insurance:SELF PAY [facility] Number: Effective Repository Date:2018-07-29 07/28/2018 Neli B Primary Neli B OHIP Practices PattersonDOB: Insurance:Hum//Medica PattersonDOB: Repository [id number] re [facility] [id number] Diana Number: 4 [address] [facility] [place] [id number] [facility] [place], [place] [address]Hwo: (330) Date:6195-48-11Mtdn [address]Xxy: (HP) Name:[facility] [phone] () [address] [place] [address]VY: 07/28/2018 Secondary Neli B OHIP Practices Insurance:MedicarePol PattersonDOB: Repository icy Number: [id number] Diana Date: - [place] 2898-96-87Xrbu [address]Bbl: (330) 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 [phone] () [place]Esp[place]ac[place] [address]AE: 06/23/2018 NELI B Primary NELI B Ginger [id number] Insurance:HUMANA PATTERSONDOB: Community BRAMBLE MEDICARE PPOPolicy [id number] [place] Number[facility] Repository [address]Zpg: (330 [id number] [phone] () Date:4512-89-31CC [address]46[address]WP: 06/23/2018 Secondary NOT GIVENUNK Ginger Insurance:SELF PAY [facility] Number: Effective Repository Date:2018-06-17 06/23/2018 NELI B Primary NELI B [place] [id number] Insurance:HUMANA PATTERSONDOB: Community BRAMBLE MEDICARE PPOPolicy [id number] [facility] [place] Number[place] Repository [address]Vjq: (330 [id number] [phone] () Date:1435-02-41XS [address] [address]II: 06/23/2018 Secondary NOT GIVENUNK Ginger Insurance:SELF PAY [facility] Number: Effective Repository Date:2018-06-23 06/17/2018 NELI B Primary NELI B [place] [id number] Insurance:HUMANA PATTERSONDOB: Community BRAMBLE MEDICARE PPOPolicy [id number] [facility] Number[place] Repository [address]Nya: (330 [id number] [phone] () Date:9774-89-72MV [address] [address]XA: 06/17/2018 Secondary NOT GIVENUNK [place] Insurance:SELF PAY [facility] Number: Effective Repository Date:2018-06-16 04/28/2018 NELI B Primary NELI B Ginger [id number] Insurance:HUMANA PATTERSONDOB: Community BRAMBLE MEDICARE PPOPolicy [id number], [place] Number: Repository [address]Eur: (330 [id number] [phone]) Date:3982-36-43VM [address] [address]YU: 04/28/2018 Secondary NOT GIVENUNK Ginger Insurance:SELF PAY [facility] Number: Effective Repository Date:2018-04-28 04/04/2018 NELI B Primary NELI B Ginger [id number] Insurance:HUMANA PATTERSONDOB: Community BRAMBLE MEDICARE PPOPolicy [id number], [place] Number: Repository [address]Irv: (330) [id number] [phone]) Date:3428-90-98WZ [address] [address]MO: 04/04/2018 Secondary NOT GIVENUNK Ginger Insurance:SELF PAY [facility] Number: Effective Repository Date:2018-04-04 04/03/2018 NELI B Primary NELI B [place] [id number] Insurance:HUMANA PATTERSONDOB: Community BRAMBLE MEDICARE PPOPolicy [id number] [place] [address], [place]: Repository [address]Ytn: (330) [id number] [phone]) Date:6078-46-08BF [address] [address]ZT: 04/03/2018 Secondary NOT GIVENUNK [place] Insurance:SELF PAY [facility] Number: Effective Repository Date:2018-03-19 03/19/2018 NELI B Primary NELI B [place] [id number] Insurance:HUMANA PATTERSONDOB: Community BRAMBLE MEDICARE PPOPolicy [id number], [place]: Repository [address]Bwv: (330 [id number] [phone]) Date:4623-64-44[place] [address]WP: 03/19/2018 Secondary NOT GIVENUNK G[place] Insurance:SELF PAY [facility] Number: Effective Repository Date:2018-03-19 03/19/2018 NELI B Primary NELI B Ginger [id number] Insurance:HUMANA PATTERSONDOB: Community DIANAMBLE MEDICARE PPOPolicy [id number] [place] Number: Repository [address]Czk: 330 [id number] [phone] (HP) Date:8128-11-57XV [address] [address]PI: 03/19/2018 Secondary NOT GIVENUNK [place] Insurance:SELF PAY [facility] Number: Effective Repository Date:2018-03-19 12/17/2017 NELI B Primary NELI B Ginger [id number] Insurance:HUMANA PATTERSONDOB: Community BRAMBLE MEDICARE PPOPolicy [id number] [facility] [place] Number[place] Repository [address]Tww: (330 [id number] [phone] () Date:1788-24-03QH[address] [address]XF: 12/17/2017 Secondary NOT GIVENUNK [place] Insurance:SELF PAY [facility] Number: Effective Repository Date:2017-12-17 12/17/2017 NELI B Primary NELI B [place] [id number] Insurance:HUMANA PATTERSONDOB: Community BRAMBLE MEDICARE PPOPolicy [id number] [place] Number[facility] Repository [address]Ebb: 330 [id number] [phone] (HP) Date:1239-55-49FM [address] [address]ME: 12/17/2017 Secondary NOT GIVENUNK [place] Insurance:SELF PAY [facility] Number: Effective Repository Date:2017-07-29 12/11/2017 NELI B Primary NELI B Ginger [id number] Insurance:HUMANA PATTERSONDOB: Community BRAMBLE MEDICARE PPOPolicy [id number], [place] Number: Repository [address]Pzu: (330 [id number] [phone] (HP) Date:5555-04-76ZJ [address] [address]AI: 12/11/2017 Secondary NOT GIVENUNK [place] Insurance:SELF PAY [facility] Number: Effective Repository Date:2017-12-11 10/22/2017 NELI B Primary NELI B [place] [id number] Insurance:HUMANA PATTERSONDOB: Community BRAMBLE MEDICARE PPOPolicy [id number], [place] Number: Repository [address]Wwv: (330) [id number] [phone]) Date:1334-48-83HW [address] [address]KB: 10/22/2017 Secondary NOT GIVENUNK [place] Insurance:SELF PAY [facility] Number: Effective Repository Date:2017-09-24 09/24/2017 NELI B Primary NELI B [place] [id number] Insurance:HUMANA PATTERSONDOB: Community BRAMBLE MEDICARE PPOPolicy [id number] [place] [address], [place]: [place]ository [phone]: (330 [id number] [phone]) Date:4950-73-78DV [address] [address]VB: 09/24/2017 Secondary NOT GIVENUNK [place] Insurance:SELF PAY [facility] Number: Effective Repository Date:2017-09-09 09/17/2017 NELI B Primary NELI B [place] [id number] Insurance:HUMANA PATTERSONDOB: Community BRAMBLE MEDICARE PPOPolicy [id number], [place]: Repository [address]Yaa: (330 [id number] [phone]) Date:5311-90-43[place] [address]WP: 09/17/2017 Secondary NOT GIVENUNK [place] Insurance:SELF PAY [facility] Number: Effective Repository Date:2017-09-17 09/16/2017 NELI B Primary NELI B [place] [id number] Insurance:HUMANA PATTERSONDOB: Community BRAMBLE MEDICARE PPOPolicy [id number] Number: Repository [phone]: (330 [id number] [phone] (HP) Date:8425-38-59FM [address] [address]CO: 09/16/2017 Secondary NOT GIVENUNK [place] Insurance:SELF PAY [facility] Number: Effective Repository Date:2017-09-16 09/16/2017 NELI B Primary NELI B [place] [id number] Insurance:HUMANA PATTERSONDOB: Community BRAMBLE MEDICARE PPOPolicy [id number] [place] [address], [place]: Repository [phone]: (330 [id number] [phone] (HP) Date:9200-52-13EG [address] [address]ZO: 09/16/2017 Secondary NOT GIVENUNK Ginger Insurance:SELF PAY [facility] Number: Effective Repository Date:2017-09-06 09/16/2017 NELI B Primary NELI B [place] [id number] Insurance:HUMANA PATTERSONDOB: Community BRAMBLE MEDICARE PPOPolicy [id number] [place] [address] [place] Number: Repository [address]Egx: (330 [id number] [phone] (HP) Date:2485-73-44TD [address] [address]QF: 09/16/2017 Secondary NOT GIVENUNK [place] Insurance:SELF PAY [facility] Number: Effective Repository Date:2017-09-16
== END ==
PROVIDERS: Family Provider Internal Medicine; PCP Internal Medicine; Referring Provider Internal Medicine Cardiovascular Disease; Visit Provider Internal Medicine Cardiovascular Disease
DX: I11.0 Hypertensive heart disease with heart failure (principal); I50.33 Acute on chronic diastolic (congestive) heart failure; R06.09 Other forms of dyspnea; R60.0 Localized edema; R07.89 Other chest pain; I27.29 Other secondary pulmonary hypertension; I36.1 Nonrheumatic tricuspid (valve) insufficiency; I48.0 Paroxysmal atrial fibrillation; I45.10 Unspecified right bundle-branch block; I49.5 Sick sinus syndrome; Z95.0 Presence of cardiac pacemaker
CPT/HCPCS: 36415; 80048; 85025; 85610; 85730

== ENCOUNTER 2018-09-08 08:52 | Day surgery (SDC) | payer MEDICARE, SELFPAY ==
[2018-07-29 07:52] VITALS: BMI 25.5
[2018-09-04 15:50] VITALS: BMI 25.5
[2018-09-05 12:08] VITALS: BMI 25.5
--- NOTE | 2018-09-08 09:39 | PCM.HP.BLA ---
Problem List (1) Fatigue Status: Acute Qualifiers: Fatigue type: chronic, unspecified Qualified Code(s): R53.82 - Chronic fatigue, unspecified (2) Dyspnea on exertion Status: Acute History and Physical Date of Admission: 09/08/18 NELI CLAY, is a 82 F who presents here today for a heart cath for her continued OROURKE and Fatigue. She does have a history of paroxysmal atrial fibrillation, palpitations, right bundle branch block, hypertension and pulmonary hypertension. In August 2017 she was in our office for an urgent appointment for shortness of breath. She was noted to have symptomatic sinus bradycardia and underwent a pacemaker placement. Pt has continued to complain of OROURKE with activity, she feels that she should be able to do more that she should She also notes fatigue during activities. She sts that this weekend while out shoveling snow she noted chest pain and SOB. She stopped this activity. She is not aware that this is in Atrial fib. She does not have any edema, lightheadedness, dizziness. We have been adjusting her medications and she has not felt improvement. Stress test in June of 2018 was negative for ischemia. With her continued concerns we are proceeding with a diagnostic heart cath. Intake Vital Signs Height 5 ft 4 in Weight: 149 lb Body Mass Index (BMI) 25.5 Blood Pressure 112/64 Respiratory Rate 18 Pulse Rate 72 Allergies No Known Allergies Allergy (Verified 07/29/18 07:52) Medications apixaban 5 mg tablet 5 mg PO BID #180 tab 01/09/18 [Rx Confirmed 07/29/18] metoprolol tartrate 25 mg tablet 25 mg PO BID #60 tab 04/07/18 [Rx Confirmed 07/29/18] lisinopril 20 mg tablet 20 mg PO DAILY #30 tab 07/14/18 [Rx Confirmed 07/29/18] amiodarone 200 mg tablet 100 mg PO DAILY 30 Days #15 tab 07/29/18 [History Confirmed 07/29/18] furosemide 40 mg tablet 40 mg PO DAILY #90 tab 07/29/18 [Rx Confirmed 07/29/18] [facility] Medical History Essential hypertension (Chronic) Other secondary pulmonary hypertension (Chronic) Nonrheumatic tricuspid (valve) insufficiency (Chronic) Sinus bradycardia (Chronic) Paroxysmal atrial fibrillation (Chronic) Complete right bundle branch block (Chronic) Sick sinus syndrome (Chronic) Presence of cardiac pacemaker (Chronic) Cervical cancer (Resolved) New onset atrial fibrillation (Inactive) Surgical History History of cardioversion (Resolved 07/13/17) History of hysterectomy (Resolved) History of tonsillectomy (Resolved) Hx of cholecystectomy (Resolved) Family History Mother CHF (congestive heart failure) Father Myocardial infarction Brother Heart disease Social History Smoking Status: Former smoker alcohol intake: never substance use type: does not use caffeine: No what type of physical activity do you participate in: none seatbelt use: always do you feel safe at home: Yes ROS Const Const: Positive for Fatigue Negative for weakness, difficulty sleeping, frequent falls, excessive sweating or headache(s) Eyes Eyes: Negative for loss of peripheral vision, transient loss of vision, blurry vision, tunnel vision or double vision ENT ENT: Negative for headache(s), dizziness, Nosebleed/epistaxis or balance problems Cardio Chest Pain: No Palpitations: No Edema: none Muscle aches with walking: None Resp Respiratory: Positive for SOB with activity; negative for SOB at rest, SOB orthopnea\SOB lying down, paroxysmal nocturnal dyspnea or Cough GI GI: Negative nausea, heartburn, black,tarry stools or vomiting : Negative for hematuria Musc Musc: Negative for balance problems, muscle aches/ myalgia, muscle weakness or joint pain Skin Skin: Negative non-healing lesions, unusual bruising or rash Neuro Neuro: Negative for weakness, frequent falls, headache(s), blurry vision, double vision, dizziness, lightheadedness, orthostatic symptoms, near syncope, syncope or lack of coordination Yan Hematologic/Lymphatic: Negative for easy bruising or easy bleeding Endo Endo: Negative for fatigue, excessive sweating or increased thirst/drinking Psych Psych: Negative for anxiety or depression Allergy Allergy/Immunology: Negative for hives, Negative for rash Cardiology Exam Const Appearance: cooperative, healthy appearing, well developed, well groomed and no acute distress Nutritional Appearance: well nourished and average body habitus Orientation: alert, awake and oriented x3 Head Head: normal to inspection, normocephalic and atraumatic Ears: hearing grossly normal bilaterally and external ears normal Nose: external nose normal, nasal mucous membranes and turbinates normal, nares normal, septum normal, no nasal discharge Face and Sinus: face symmetric Mouth: oral mucosae normal, tongue normal, oropharynx normal and moist mucous membranes Teeth and gingiva: dentition normal Throat: posterior oropharynx normal, tonsils normal and uvula midline Eyes General: appearance normal, both eyes and all related structures Eyelids: eyelids normal Conjunctivae: conjunctivae normal Pupils: PERRL, normal by confrontation and accommodation normal EOM: EOM intact bilaterally Neck Neck: normal visual inspection, trachea midline and no JVD JVD: +5 Carotids: normal carotid upstroke and bounding pulses Chest Chest inspection: normal inspection of the chest, symmetric chest movement and normal respiratory effort Auscultation: Bilateral: Clear to Auscultation Cardio Palpation: normal PMI Rate: regular rate Rhythm: irregularly irregular Heart sounds: S1 normal, S2 normal and normal, physiologic split S2; negative rub, gallop or murmur GI GI: normal to inspection, soft, no hepatosplenomegaly and bowel sounds present Neuro General: alert, awake, oriented x3, no focal sensory deficit, gait normal and moves all extremities Skin Skin: no rashes or lesions noted Extremities Pulses: Normal: Right Femoral Pulse, Left Femoral Pulse, Right Dorsalis Pedis Pulse, Left Dorsalis Pedis Pulse, Right Posterior Tibial Pulse, Left Posterior Tibial Pulse, Right Radial Pulse, Left Radial Pulse Lower Extremity Edema: None: Bilateral Musculoskel Musculoskeletal: No joint tenderness Psych Psychological: normal affect Supplemental Info Echocardiogram in 2017 demonstrates an ejection fraction of 60%. Mild mitral valve insufficiency. Mild tricuspid valve insufficiency. RVSP 38 mmHg. Pharmacologic stress test in 2018 was negative for ischemia. Pulmonary function test in 2018 demonstrated essentially normal pulmonary function testing, with improvement noted since PFTs were last completed in August 2017. Assessment & Plan 1. Dyspnea on exertion R06.09 2. Essential hypertension I10 3. Presence of cardiac pacemaker Z95.0 4. Paroxysmal atrial fibrillation I48.0 As mentioned above, with pts continued OROURKE and exertion, we are proceeding with a diagnostic heart cath. Pt will follow up accordingly after heart cath. The above patient was discussed with Dr. Michel, he agrees with plan of care.
--- NOTE | 2018-09-08 11:22 | CL.D_ITS ---
Patient Name: NELI CLAY Study Date: 09/08/2018 Performing: Paul Michel MD Ht: 64.17 inches 163 cm : 1935 Wt: 149.91 lbs 68 kg Age: 83 Gender: female BSA: 1.73 PROCEDURE(S) PERFORMED [id number] CLINICAL PROFILE AND INDICATIONS Indications: Cardiac Arrythmia Heart Failure: NYHA Class: 2, Newly Diagnosed: Yes, Heart Failure Type: Diastolic Stress/Imaging Stress Test w/SPECT MPI: Yes Result: NegativeStress Test with SPECT MPI: Negative CAD Presentations: Symptom unlikely to be ischemic. CONCLUSIONS Normal coronary arteries Normal LV size, wall motion,and systolic function RECOMMENDATIONS Medical therapy DESCRIPTION OF PROCEDURE The patient arrived to the procedure lab. The risks and benefits of the procedure as well as a full d escription of our services here and current unavailability of surgical backup were fully explained to the patient and/or their significant other prior to the catheterization. The Timeout was completed, verifying the correct patient and procedure. The patient's procedural site was prepped and draped in the usual fashion. Local anesthetic was given subcutaneously to right radial region with Lidocaine 2% . Using a modified Seldinger technique, arterial access was obtained via the right radial artery, a 6 Fr sheath was inserted. Left Coronary Artery selective angiography was performed in multiple views u sing a 5 Fr. 4.0 [place] catheter. Right Coronary Artery selective angiography was then performed in mu ltiple views using a 5 Fr. 4.0 [place] catheter. Left Ventriculography was performed in VALDEZ projection using a 5 Fr. Pigtail catheter. LV to AO pullback pressures were then recorded.The arterial sheath was pulled and a TR Band was applied for hemostasis 13cc aire CORONARY ANGIOGRAPHY DOMINANCE: Left Dominant LEFT HEART ASSESSMENT Left Ventricular Ejection Fraction: by LV Gram 60 % Normal LV wall motion Normal Left Ventricular systolic function Normal Left Ventricular systolic function LEFT MAIN: Angiographically normal LEFT ANTERIOR DECENDING ARTERY: Angiographically normal CIRCUMFLEX ARTERY: Angiographically normal RIGHT CORONARY ARTERY: Angiographically normal COMPLICATIONS No Complications PROCEDURE MEDICATIONS Fentanyl 50 mcg IV Versed 1 mg IV Oxygen: 2 L/min via nasal cannula Heparin diluted in 23cc Heparinized saline. Patient given 10cc IA of this solution. 09/08/2018 10:24: 49 Verapamil 2.5mg, Ntg 100mcgs, 2000 units of Heparin diluted in 23cc Heparinized saline. Patient give n 10cc IA of this solution. 09/08/2018 10:24:49 SUMMARY OF HEMODYNAMIC DATA Time AIR REST AO 108/62 (83) SA 10:26:50 LV 98/7, 0 10:32:10 LV 100/7, 15 10:32:18 LV 66/5, 7 10:33:25 LVp 80/-5, 0 10:33:29 AOp 89/52 (69) 10:33:34 Signed By Paul Michel MD On 09/08/2018 10:41:36 Paul Michel MD
--- OUTSIDE RECORDS SUMMARY | 2018-11-10 16:08 | XMS RPT_ITS ---
:1935 Author Organization [facility] Support Name Relationship Address Phone MARCELINO RIVERA Unavailable [address] + [place] [address] LAN CLAY Unavailable [address] + [place] [address] R Unavailable Unavailable Unavailable MARCELINO RIVERA Unavailable [address] + [place] [id number] LAN CLAY Unavailable [address] + [place] [address] R Unavailable Unavailable Unavailable MARCELINO RIVERA Unavailable [address] + [place] [id number] LAN CLAY Unavailable [address] + [place] [address] R Unavailable Unavailable Unavailable MARCELINO RIVERA Unavailable [address] + [place] [address] LAN CLAY Unavailable [address] + [place] [address] R Unavailable Unavailable Unavailable MARCELINO RIVERA Unavailable [address] + [place] [id number] LAN CLAY Unavailable [address] + [place] [address] R Unavailable Unavailable Unavailable MARCELINO RIVERA Unavailable [address] + [place] [address] LAN CLAY Unavailable [address] + [place] [address] R Unavailable Unavailable Unavailable MARCELINO RIVERA Unavailable [address] + [place] [address] LAN CLAY Unavailable [address] + [place] [address] R Unavailable Unavailable Unavailable MARCELINO RIVERA Unavailable . + [place] [address] LAN CLAY Unavailable [address] + [place] [address] R Unavailable Unavailable Unavailable MARCELINO RIVERA Unavailable Unavailable + [place] [address] LAN CLAY Unavailable [address] + [place] [address] R Unavailable Unavailable Unavailable MARCELINO RIVERA Unavailable Unavailable + [place] [address] LAN CLAY Unavailable [address] + [place] [address] R Unavailable Unavailable Unavailable MARCELINO RIVERA Unavailable 1 + [place] [address] LAN CLAY Unavailable [address] + [place] [address] R Unavailable Unavailable Unavailable MARCELINO RIVERA Unavailable 1 + [place] [address] LAN CLAY Unavailable [address] + [place] [address] R Unavailable Unavailable Unavailable MARCELINO RIVERA Unavailable Unavailable + LAN CLAY Unavailable [address] + [place] [address] R Unavailable Unavailable Unavailable MARCELINO RIVERA Unavailable Unavailable + LAN CLAY Unavailable [address] + [place] [address] R Unavailable Unavailable Unavailable MARCELINO RIVERA Unavailable Unavailable + LAN CLAY Unavailable [address] + [place] [address] R Unavailable Unavailable Unavailable MARCELINO RIVERA Unavailable 1 + [place] [address] LAN CLAY Unavailable [address] + [place] [address] R Unavailable Unavailable Unavailable MARCELINO RIVERA Unavailable Unavailable + LAN CLAY Unavailable [address] + [place] [address] R Unavailable Unavailable Unavailable MARCELINO RIVERA Unavailable NA + [place], [place] LAN CLAY Unavailable [address] + [place] [address] R Unavailable Unavailable Unavailable MARCELINO RIVERA Unavailable NA + [place], [place] LAN CLAY Unavailable [address] + [place] [address] R Unavailable Unavailable Unavailable MARCELINO RIVERA Unavailable NA + [place], [place] LAN CLAY Unavailable [address] + [place] [address] R Unavailable Unavailable Unavailable MARCELINO RIVERA Unavailable NA + [place], [place] LAN CLAY Unavailable [address] + [place] [address] R Unavailable Unavailable Unavailable LAN CLAY Unavailable [address] + [place] [address] R Unavailable Unavailable Unavailable LAN CLAY Unavailable [address] + [place] [address] R Unavailable Unavailable Unavailable MARCELINO RIVERA Unavailable Unavailable + LAN CLAY Unavailable [address] + [place] [address] R Unavailable Unavailable Unavailable MARCELINO RIVERA Unavailable NA + [place], [place] LAN CLAY Unavailable [address] + [place] [address] R Unavailable Unavailable Unavailable Care Team Providers Name Role Phone Alissa Benjamin DO Attending Unavailable Diamante Estes MD Referring Unavailable Alissa Benjamin DO Consulting Unavailable Marilu, Wainscott Attending Unavailable Alissa Benjamin Referring Unavailable Marilu, Wainscott Attending Unavailable Marilu, Paul Referring Unavailable Alissa Benjamin Primary Care Unavailable Lizy Yusuf Attending Unavailable Marilu, Paul Attending Unavailable Marilu, Paul Referring Unavailable Alissa Benjamin Primary Care Unavailable Marilu, Paul Attending Unavailable Alissa Benjamin Referring Unavailable Marilu, Wainscott Attending Unavailable Cassidy, Alissa Primary Care Unavailable Marilu, Paul Referring Unavailable Angelica Paulson Attending Unavailable Marilu, Wainscott Referring Unavailable Cassidy, Alissa Primary Care Unavailable Marilu, Wainscott Consulting Unavailable Lizy Yusuf Attending Unavailable Marilu, Paul Attending Unavailable Marilu, Wainscott Referring Unavailable Cassidy, Alissa Primary Care Unavailable Jaylene Milan Attending Unavailable Marilu, Wainscott Attending Unavailable Marilu, Paul Referring Unavailable Cassidy, Alissa Primary Care Unavailable Marilu, Paul Consulting Unavailable BjornPatyJaylene Attending Unavailable Cassidy, Alissa Referring Unavailable Cassidy, Alissa Primary Care Unavailable Bjorn, Jaylene Attending Unavailable Cassidy, Alissa Referring Unavailable Cassidy, Alissa Primary Care Unavailable Marilu, Wainscott Attending Unavailable Marilu, Wainscott Referring Unavailable Leora Sierra Attending Unavailable Angelica Paulson Attending Unavailable Cassidy, Alissa Referring Unavailable Cassidy, Alissa Primary Care Unavailable Angelica Paulson Attending Unavailable Angelica Paulson Referring Unavailable Cassidy, Alissa Primary Care Unavailable Angelica Paulson Attending Unavailable Cassidy, Alissa Referring Unavailable Cassidy, Alissa Primary Care Unavailable Angelica Paulson Attending Unavailable Angelica Paulson Referring Unavailable Cassidy, Alissa Primary Care Unavailable Angelica Paulson Attending Unavailable Angelica Paulson M Referring Unavailable Cassidy, Alissa Primary Care Unavailable Randell Bhat D.O. Attending Unavailable Angelica Paulson Referring Unavailable BjornJaylene Attending Unavailable Cassidy, Alissa Referring Unavailable Cassidy, Alissa Primary Care Unavailable Angelica Paulson Attending Unavailable Cassidy, Alissa Referring Unavailable Angelica Paulson Attending Unavailable Angelica Paulson Referring Unavailable Cassidy, Alissa Primary Care Unavailable Marilu, Paul Attending Unavailable Angelica Paulson Referring Unavailable PROBLEMS PROBLEMS DATE TYPE CONDITION / CODE ATTENDING STATUS SOURCE 07/29/2018 Unknown R06.09 - Other Marilu, Paul Active [place] forms of dyspnea / Community R06.09(ICD-10) Hospital Repository 07/29/2018 Unknown I10 - Essential Marilu, Paul Active [place] (primary) Community hypertension / Hospital I10(ICD-10) Repository 07/29/2018 Unknown Z95.0 - Presence Marilu, Wainscott Active [place] of cardiac Community pacemaker / Hospital Z95.0(ICD-10) Repository 07/29/2018 Unknown I48.0 - Paroxysmal Marilu, Wainscott Active [place] atrial Community fibrillation / Hospital I48.0(ICD-10) Repository 07/15/2018 Unknown R07.9 - Chest Marilu, Paul Active [place] pain, unspecified Community / R07.9(ICD-10) Hospital Repository 03/19/2018 Unknown R53.83 - Other Paulson, Active [place] fatigue / [facility] R53.83(ICD-10) Hospital Repository 03/19/2018 Unknown I48.91 - Paulson, Active [place] Unspecified atrial [facility] fibrillation / Hospital I48.91(ICD-10) Repository 10/22/2017 Unknown I49.5 - Sick sinus Marilu, Paul Active [place] syndrome / [facility] I49.5(ICD-10) Hospital Repository PROCEDURES PROCEDURES No Procedure Records FoundRESULTS RESULTS HISTORY AND PHYSICAL Observed: 09/08/2018 Status: F Source: [place] EXAM 10:01 AM [facility] [place] [place] REPOSITORY [facility] Medical Records Department [address] [place] [address] History and Physical 09/08/18 0939 MR#: [id number] Acct: [id number] Name: NIRU CLAY Rep #: [id number] : 1935 83 From: Angelica RENTERIA PCP: Alissa Benjamin DO Status: REG [facility] Y Location: [facility] Problem List (1) Fatigue Status: Acute Qualifiers: Fatigue type: chronic, unspecified Qualified Code(s): R53.82 - Chronic fatigue, unspecified (2) Dyspnea on exertion Status: Acute History and Physical Date of Admission: 09/08/18 NIRU CLAY, is a 82 F who presents [...] DAILY #90 tab 07/29/18 [Rx Confirmed 07/29/18] [facility] Medical History Essential hypertension (Chronic) Other secondary [...] 09/04/2018 Status: F Source: [place] 4:07 PM [facility] Services [place] [address] OFFICE VISIT Date of Service: 09/04/18 MR#: [id number] Acct: [id number] Patient: NIRU CLAY Rep #: [id number] : 1935 Provider: Paul Michel MD Age/Sex: 83/F [place] [facility] [place]: Signed Intake Vital Signs09/04/18 Body Mass [...] atrial fib. Cath scheduled for 09/08/18 09/04/18 8527 <Electronically signed by Paul Michel MD> Date Paul Michel MD Cosigner Signature: Date (if applicable) CC: CBC W/DIFF, AUTOMATED Collected: 09/04/2018 Status: F Source: [place] 3:06 PM [facility] [place] [place] REPOSITORY TYPE CODE TESTS RESULT OUT OF [...] Lymph 1.67 Performed By: #### L100.0100 #### [facility] [address] [place], [address] BASIC METABOLIC Collected: 09/04/2018 Status: F Source: [place] PROFILE (BMP) 3:06 PM [facility] [place] [place] REPOSITORY TYPE CODE TESTS RESULT OUT OF [...] GAP 10 Performed By: #### L500.2500 #### [facility] [address] [place], [place], [address] PROTHROMBIN TIME W/INR Collected: 09/04/2018 Status: F Source: [place] 3:06 PM [facility] [place] [place] REPOSITORY TYPE CODE TESTS RESULT OUT OF RANGE REFERENCE UNITS LAB L300.4150 11.7-14.9 SECONDS High PROTIME 15.7 LAB L300.4200 Normal INR 1.3 Performed By: #### L300.3900, L300.4310 #### [facility] [address] [facility] [place], [address] PARTIAL THROMBOPLAST Collected: 09/04/2018 Status: F Source: [place] TIME 3:06 PM [facility] [place] REPOSITORY TYPE CODE TESTS RESULT OUT OF REFERENCE UNITS RANGE LAB L300.4310 24.1-36.2 Seconds High PTT 40.8 Performed By: #### L300.3900, L300.4310 #### [facility] [address] [place], [address] 12 LEAD EKG PERFORMED Observed: 09/04/2018 Status: F Source: [place] BY BMS 10:35 AM [facility] REPOSITORY [facility] [address] [place] [address] 12 Lead EKG performed by [facility] [place] 09/04/18 1033 MR#: [id number] Acct: [id number] Name: NIRU CLAY Rep #: [id number] : 1935 83 From: Paul Michel MD Attending Dr: Lizy Yusuf Status: REG BNV Ordering Dr: Paul Michel MD Date: 09/04/18 [place] [facility] Sex: F C Admitted: BMS/12 Lead EKG performed by [facility] [place] ECG Report Interpretation Atrial fibrillation - frequent ectopic ventricular beat s # VECs = 3-Right bundle branch block. ABNORMAL Electronically signed on 09/09/2018 at 15:36 by Paul Michel Software Version 8610 09/09/18 1540 Date Paul Michel MD CC: Date Dictated: 09/04/183 Date Transcribed: 09/04/181032 Packer Insulation: CO Signed BNP,B-TYPE NATRIURETIC Collected: 08/29/2018 Status: F Source: [place] PEPTIDE 10:14 AM [facility] [place] [place] REPOSITORY TYPE CODE TESTS RESULT OUT OF RANGE REFERENCE UNITS LAB L503.6620 0-100 pg/mL High B-TYPE 470.2 ELOISA PEP Performed By: #### L503.6620 #### [facility] [address] [place], [address] CARDIOLOGY VISIT Observed: 07/29/2018 Status: F Source: [place] REPORT 10:17 AM [facility] [place] [place] REPOSITORY [facility] [address] [place] [address] OFFICE VISIT Date of Service: 07/29/18 MR#: [id number] Acct: [id number] Name: NIRU CLAY Rep #: [id number] : 1935 Provider: Paul Michel MD Age/Sex: 83/F [place] [facility] [place]: Signed HPI HPI Chief Complaint: Follow up Details: NIRU CLAY, is a 83 F who presents [...] Status: F Source: [place] 11:28 AM [facility] [place] [place] REPOSITORY [facility] Cardiovascular Services [facility] [place] [address] MR#: [id number] Acct: [id number] Name: INRU CLAY Rep #: [id number] : 1935 82 From: Paul Michel MD [...] Paulson Date Dictated: 06/23/181122 Date Transcribed: 06/23/181122 Packer Insulation: CO Signed CARDIOLOGY VISIT Observed: 06/18/2018 Status: F Source: [place] REPORT 6:42 AM [facility] [place] [place] REPOSITORY [place] [facility] [address] [place] [address] OFFICE VISIT Date of Service: 06/17/18 MR#: [id number] Acct: [id number] Name: NIRU CLAY Rep #: [id number] : 1935 Provider: Angelica Paulson Age/Sex: 82/F Location: [facility] [place] Status: Signed HPI HPI Details: NIRU CLAY, is a 82 F who presents [...] brachial Intake Visit Reasons: PER MSG FROM [facility] Bucket Hooker Required: No Accompanied by: none Is patient [...] EKG PERFORMED Observed: 06/17/2018 Status: F Source: [place] BY [facility] [place] 10:07 AM [facility] [address] [place] [address] 12 Lead EKG performed by [facility] [place] 06/17/18 1006 MR#: [id number] Acct: [id number] Name: NIRU CLAY Rep #: [id number] : 1935 82 From: Angelica RENTERIA Attending Dr: Angelica Paulson Status: DEP AMB Ordering Dr: Angelica Paulson Date: 06/17/18 [place] [facility] Sex: F C Admitted: BMS/12 Lead EKG performed by [facility] [place] ECG Report Interpretation Electronic atrial pacemaker -Right bundle branch block. -Combined atrial enlargement. ABNORMAL Electronically signed on 09/09/2018 at 15:36 by Paul Michel Software Version [id number] 09/09/18 1540 Date Angelica RENTERIA CC: Alissa Benjamin DO Date Dictated: 06/17/18 1006 Date Transcribed: 06/17/18 100 Packer Insulation: SUSY Signed PACEMAKER CHECK Observed: 05/01/2018 Status: F Source: [place] 10:37 AM [facility] [place] REPOSITORY [facility] [facility] [address] [facility] [place] [address] Pacemaker Check Date of Service: 04/28/18 1011 MR#: [id number] Acct: [id number] Name: NIRU CLAY Rep #: [id number] : 1935 From: Jaylene Milan Age/Sex: 82/F [place] [facility] [place]: Signed Billing Codes PM Device Codes: PM Dev Prog Eval, Dual 04/28/18 1015 <Electronically signed by Jaylene Milan > Date Jaylene Milan 05/01/18 1037<Electronically signed by Paul Michel MD> Cosigner Signature: Date (if applicable) Paul Michel MD CC: PULMONARY FUNCTION Observed: 04/04/2018 Status: F Source: [place] TEST 7:29 AM [facility] [place] REPOSITORY [facility] Pulmonary Services/Neurology [address] [address] MR#: [id number] Acct: [id number] Name: NIRU CLAY Rep #: [id number] : 1935 82 From: Randell Brown DO Referring Dr: Angelica Paulson Status: REG CLI Ordering Dr: Date: Location: [facility] Sex: F C INTRODUCTION: The patient is [...] Paulson Date Dictated: 04/04/18724 Date Transcribed: 04/04/18724 Packer Insulation: NIMISHA Signed CARDIOLOGY VISIT Observed: 03/19/2018 Status: F Source: [place] REPORT 4:35 PM [facility] [place] REPOSITORY [facility] [facility] [address] [place] [address] OFFICE VISIT Date of Service: 03/19/18 MR#: [id number] Acct: [id number] Name: NIRU CLAY Rep #: [id number] : 1935 Provider: Angelica Paulson Age/Sex: 82/F [place] [facility] [place]: Signed HPI HPI Details: NIRU CLAY, is a 82 F who presents [...] Lt brachial Intake Visit Reasons: SOB, Fatigue Bucket Hooker Required: No Accompanied by: none Is patient [...] Status: F Source: [place] 12:37 PM [facility] [place] [place] REPOSITORY TYPE CODE TESTS RESULT OUT OF [...] Lymph 1.65 Performed By: #### L100.0100 #### [facility] [address] [place], [address] BASIC METABOLIC Collected: 03/19/2018 Status: F Source: [place] PROFILE (BMP) 12:37 PM [facility] [place] [place] REPOSITORY TYPE CODE TESTS RESULT OUT OF [...] 5 Performed By: #### L500.2500, L503.6620 #### [facility] [address] [facility] [place], [address] BNP,B-TYPE NATRIURETIC Collected: 03/19/2018 Status: F Source: [place] PEPTIDE 12:37 PM [facility] [place] [place] REPOSITORY TYPE CODE TESTS RESULT OUT OF RANGE REFERENCE UNITS LAB L503.6620 0-100 pg/mL High B-TYPE 198.4 ELOISA PEP Performed By: #### L500.2500, L503.6620 #### [facility] [address] [facility] [place], [address] CHEST PA AND LATERAL Observed: 03/19/2018 Status: F Source: [place] 12:18 PM [facility] REPOSITORY [facility] Imaging Services [address] [facility] [place] [address] Chest PA and Lateral MR#: [id number] Acct: [id number] Name: NIRU CLAY Rep #: [id number] : 1935 F 82 From: Bebeto Beaver MD PCP: Alissa Benjamin DO Status: REG CLI Study: Chest PA and Lateral Date of Exam: 03/19/18 Exam# [id number] Ordering Dr: Angelica Paulson STUDY: X-RAY CHEST [...] , CC: Alissa Benjamin DO; Angelica Paulson Packer Insulation: Signed CARDIOLOGY VISIT Observed: 12/17/2017 Status: F Source: [place] REPORT 4:27 PM [facility] [place] [place] REPOSITORY [facility] [address] [place] [address]. 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, [address] T4 FREE DIRECT Collected: 12/17/2017 Status: F Source: [place] 11:13 AM [facility] [place] [place] REPOSITORY TYPE CODE TESTS RESULT OUT OF RANGE REFERENCE UNITS LAB L506.0400 0.76-1.46 ng/dL Normal T4 FREE 1.21 DIRECT Performed By: #### L501.9520, L506.0400 #### [facility] [address] [place], [address] PACEMAKER CHECK Observed: 10/27/2017 Status: F Source: [place] 10:46 AM [facility] [place] [place] REPOSITORY [facility] [address] [place] [address] Pacemaker Check Date of Service: 10/22/17 1102 MR#: [id number] Acct: [id number] Name: NIRU CLAY Rep #: [id number] : 1935 From: Jaylene Milan Age/Sex: 82/F [place] [facility] [place]: Signed Comments Summary Comments: Dual Chamber Pacemaker Evaluation: 6 wk post PPM implant interrogation completed. Interrogation shows atrial burden 0% and no NSVT episodes since implant. Left pectoral pocket/incision w/o s/s of infection or erosion. Pt offers no cardiac complaints. Presenting rhythm shows AAI pacing @ 60 ppm. NEUROSCIENTIST=<1%. Battery longevity approx 8.5 yrs. RV lead [...] in office Interview Reason: routine follow up Sales And Marketing Executive: Vokle Name: Sanjana VALLADARES1 Model: L111 Serial #: [id number] Implant Date: 09/16/17 Year(s): 0 Implant Physician: Dr. Paul Michel/[facility] Patient Characteristics Atrial Indication: sick sinus syndrome, Atrial tachycardia (paroxysmal) Ejection fraction %: 60 to 64 (12/07/2016) By: Echo Pacemaker Dependent: Yes (Nonintrinsic P waves today) Device Characteristics Device: Dual Chamber Type: Pacemaker Remote Follow-Up: No Device Physical Exam Yes Incision well healed and No drainage Leads Lead #1 Sales And Marketing Executive Lead 1: [employer] Model Lead 1: 7740 MRI Serial# Lead 1: [id number] Date Implanted Lead 1: 09/16/17 Position Lead 1: RA Lead #2 Sales And Marketing Executive Lead 2: [employer] Model Lead 2: 7741 Serial# Lead 2: [id number] Date Implanted Lead 2: 09/16/17 Position Lead [...] 09/25/2017 Status: F Source: [place] 10:33 AM [facility] Services [place] [address] OFFICE VISIT Date of Service: 09/24/17 MR#: [id number] Acct: [id number] Patient: NIRU CLAY Rep #: [id number] : 1935 Provider: Jaylene Milan Age/Sex: 82/F Location: [facility] [place] Status: Signed Comments Summary Comments: Wound Check: [...] in office Interview Reason: scheduled follow up Sales And Marketing Executive: Vokle Name: Reallucy RAPP-1 Model: L111 Serial #: [id number] Implant Date: 09/16/17 Year(s): 0 Implant Physician: Dr. Paul Michel/[facility] Patient Characteristics Atrial Indication: sick sinus syndrome, Atrial tachycardia (paroxysmal) Ejection fraction %: 60 to 64 (12/07/2016) By: Echo Underlying rhythm: Sinus rhythm Device Characteristics Device: Dual Chamber Type: Pacemaker Remote Follow-Up: No Device Physical Exam Yes Incision well healed and No drainage Leads Lead #1 Sales And Marketing Executive Lead 1: [employer] Model Lead 1: 7740 MRI Serial# Lead 1: [id number] Date Implanted Lead 1: 09/16/17 Position Lead 1: RA Lead #2 Sales And Marketing Executive Lead 2: Vokle Model Lead 2: 7741 Serial# Lead 2: [id number] Date Implanted Lead 2: 09/16/17 Position Lead [...] DISCHARGE INSTRUCTION Observed: 09/17/2017 Status: F Source: [place] 7:59 AM [facility] [place] [place] REPOSITORY [facility] Medical Records Department [address] [place] [address] Instructions for Home/Discharge Instructions 09/17/17 0755 MR#: [id number] Acct: [id number] Name: NIRU CLAY Rep #: [id number] : 1935 82 From: Paul Michel MD PCP: Alissa Benjamin DO Status: REG [facility] Discharge Diet: No Restrictions Discharge Activity: May [...] call your doctor's office or Doctor's Registry ([phone]) Call 911 or go to the nearest [...] 1 VIEW Observed: 09/17/2017 Status: F Source: [place] 1:23 AM [facility] [place] [place] REPOSITORY [facility] Imaging Services [facility] [place] [address] Chest 1 View MR#: [id number] Acct: [id number] Name: NIRU CLAY Rep #: [id number] : 1935 F 82 From: Carlos Alberto Cuellar PCP: Alissa Benjamin DO Status: REG SDC Study: Chest 1 View Date of Exam: 09/17/17 Exam# [id number] Ordering Dr: Paul Michel MD STUDY: X-RAY [...] CC: Paul Michel MD; Alissa Benjamin DO Packer Insulation: Signed CHEST PA AND LATERAL Observed: 09/17/2017 Status: F Source: [place] 12:01 AM [facility] [place] [place] REPOSITORY [facility] Imaging Services [address] [place] [address] Chest PA and Lateral MR#: [id number] Acct: [id number] Name: NIRU CLAY Rep #: [id number] : 1935 F 82 From: Carlos Alberto Cuellar PCP: Alissa Benjamin DO Status: REG SDC Study: Chest PA and Lateral Date of Exam: 09/17/17 Exam# [id number] Ordering Dr: Paul Michel MD STUDY: X-RAY [...] CC: Paul Michel MD; Alissa Benjamin DO Packer Insulation: Signed ALLERGIES ALLERGIES DATE TYPE / CODE NAME / CODE REACTION SEVERITY SOURCE 07/29/2018 Drug No Known Unknown [place] [facility] Allergy/4160 Allergies/F00 [facility] 37557(SNOMED [id number](RXNOR Repository CT) M) ENCOUNTERS ENCOUNTERS ADMIT/DISCHARGE ACCOUNT ADMITTING ENCOUNTER LOCATION SOURCE NUMBER CLASS 09/10/2018 [id number] Ambulatory BMSBuilding:B [place] 2 [facility] Repository 09/08/2018 [id number] Ambulatory BMSBuilding:B [place] 5 MS.CF.[facility] Repository 09/08/2018/ [id number] Ambulatory [place] [address] [facility] Hospital ing:[facility] Repository 09/04/2018/ [id number] Ambulatory BMSBuilding:B [place] 9 7 MS.[facility] Repository 09/04/2018 [id number] Ambulatory [place] 2 [facility] ing[facility] Repository 09/04/2018 [id number] Ambulatory BMSBuilding:B [place] 1 MS[facility] Repository 08/29/2018 [id number] Ambulatory [place] G[place] [address] [facility] Hospital ing:LAB Repository 07/29/2018/ [id number] Ambulatory BMSBuilding:B [place] 8 9 [facility] Repository 07/28/2018 [id number] Ambulatory Building:[facility] [place] [facility] Repository 06/23/2018 [id number] Ambulatory [place] 6 [facility] ing[facility] Repository 06/23/2018 [id number] Ambulatory BMSBuilding:W [place] [facility]ository 06/17/2018/ [id number] Ambulatory BMSBuilding:B [place] 8 4 [facility] Repository 04/28/2018/ [id number] Ambulatory BMSBuilding:B [place] 8 9 [facility] Repository 04/04/2018 [id number] Ambulatory BMSBuilding:W [place] 7 [facility] Repository 04/03/2018 [id number] Ambulatory [place] 2 [facility] ing:PSN Repository 03/19/2018 [id number] Ambulatory [place] 9 [facility] ing:RAD Repository 03/19/2018/ [id number] Ambulatory BMSBuilding:B [place] 8 3 [facility] Repository 12/17/2017 [id number] Ambulatory [place] 1 [facility] ing[facility]LAB Repository 12/17/2017/ [id number] Ambulatory BMSBuilding:B [place] 8 8 [facility] Repository 12/11/2017 [id number] Ambulatory BMS [place] 0 [facility] Repository 10/22/2017/ [id number] Ambulatory BMSBuilding:B [place] 8 1 [facility] Repository 09/24/2017/ [id number] Ambulatory BMSBuilding:B [place] 8 6 [facility] Repository 09/17/2017 [id number] Ambulatory BMSBuilding:B [place] 0 MS.CF.[facility] Repository 09/16/2017 [id number] Ambulatory BMSBuilding:B [place] 5 [facility] Repository 09/16/2017/ [id number] Ambulatory [place] 8 6 [facility] ing:CLSPRoom: Repository [id number] 09/16/2017 [id number] Ambulatory BMSBuilding:W [place] 7 [facility] Repository PAYERS PAYERS ENCOUNTER GUARANTOR PAYER SUBSCRIBER SOURCE 09/10/2018 NIRU B Primary NIRU B [place] [id number] Insurance:HUMANA PATTERSONDOB: Community BRAMBLE MEDIC[id number] [place] Number[place] Repository [address]Nwr: 330 [id number] [phone] () Date:6606-70-41OX[address]WP: 09/10/2018 Secondary NOT GIVENUNK [place] Insurance:SELF PAY [facility] Number: Effective Repository Date:2018-09-10 09/08/2018 NIRU B Primary NIRU B [place] [id number] Insurance:HUMANA PATTERSONDOB: Community BRAMBLE MEDICARE PP[place]olicy [id number] [place] Number[place] Repository [address]Ups: 330 [id number] [phone] () Date:1278-29-86DG[address] [address]XP: 09/08/2018 Secondary NOT GIVENUNK [place] Insurance:SELF PAY [facility] Number: Effective Repository Date:2018-09-08 09/08/2018 NIRU B Primary NIRU B [place] [id number] Insurance:HUMANA PATTERSONDOB: Community BRAMBLE MEDICARE PPOPolicy [id number] [place] [address], [place]: Repository [address]Bol: 330 [id number] [phone] (HP) Date:9962-96-98WH [address] [address]NQ: 09/08/2018 Secondary NOT GIVENUNK [place] Insurance:SELF PAY [facility] Number: Effective Repository Date:2018-09-04 09/04/2018 NIRU B Primary NIRU B [place] [id number] Insurance:HUMANA PATTERSONDOB: Community BRAMBLE MEDICARE PPOPolicy [id number] [place] [address], [place] [address]Mxw: (330 [id number] [phone]) Date:9736-48-78IC [address] [address]GM: 09/04/2018 Secondary NOT GIVENUNK [place] Insurance:SELF PAY [facility] Number: Effective Repository Date:2018-09-04 09/04/2018 NIRU B Primary NIRU B [place] [id number] Insurance:HUMANA PATTERSONDOB: Community BRAMBLE MEDICARE PPOPolicy [id number], [place] Number: Repository [phone]: (330 [id number] [phone] () Date:8748-92-18JG [address] [address]FO: 09/04/2018 Secondary NOT GIVENUNK [place] Insurance:SELF PAY [facility] Number: Effective Repository Date:2018-09-04 09/04/2018 NIRU B Primary NIRU B [place] [id number] Insurance:HUMANA PATTERSONDOB: Community BRAMBLE MEDICARE PPOPolicy [id number], [place] Number: Repository [address]Cvb: 330 [id number] [phone]) Date:2004-28-69LQ [address] [address]RU: 09/04/2018 Secondary NOT GIVENUNK [place] Insurance:SELF PAY [facility] Number: Effective Repository Date:2018-09-04 08/29/2018 NIRU B Primary NIRU B [place] [id number] Insurance:HUMANA PATTERSONDOB: Community BRAMBLE MEDICARE PPOPolicy [id number]: Repository [address]Cxy: (330) [id number] [phone] (HP) Date:7090-87-62TQ[address] [address]BW: 08/29/2018 Secondary NOT GIVENUNK [place] Insurance:SELF PAY [facility] Number: Effective Repository Date:2018-08-29 07/29/2018 NIRU B Primary NIRU B [place] [id number] Insurance:HUMANA PATTERSONDOB: Community BRAMBLE MEDICARE PPOPolicy [id number], [place] Number: Repository [address]Asd: (330) [id number] [phone] () Date:1193[place]78[place]02[place] [address]WP: 07/29/2018 Secondary NOT GIVENUNK [place] Insurance:SELF PAY [facility] Number: Effective Repository Date:2018-07-29 07/28/2018 Niru B Primary Niru B OHIP Practices PattersonDOB: Insurance:Hum//Medica PattersonDOB: Repository [id number] re [facility] [id number] Diana Number: 4 Diana [facility] [place] [id number] [facility] [place], [place] [address]Hpu: (330) Date:3737-34-11Lgqw [address]45[address]Usp: (HP) Name:[facility] [phone] () [address] [place] [address]HX: 07/28/2018 Secondary Niru B OHIP Practices Insurance:MedicarePol PattersonDOB: Repository icy Number: [id number] 4 Diana Date: - [place] 0651-43-07Hhea [address]Gax: (330) Name:[employer] [phone] () 839165Yydgimlt[place], [place] [address]QJ: 06/23/2018 NIRU B Primary NIRU B [place] [id number] Insurance:HUMANA PATTERSONDOB: Community BRAMBLE MEDICARE PPOPolicy [id number] [place] Number[facility] Repository [address]Vqm: (330 [id number] [phone] () Date:3575-04-70RB [address]46[address]WP: 06/23/2018 Secondary NOT GIVENUNK [place] Insurance:SELF PAY [facility] Number: Effective Repository Date:2018-06-17 06/23/2018 NIRU B Primary NIRU B [place] [id number] Insurance:HUMANA PATTERSONDOB: Community BRAMBLE MEDICARE PPOPolicy [id number] [place] Number: Repository [address]Nln: (330 [id number] [phone] () Date:7645-43-90PM [address] [address]JA: 06/23/2018 Secondary NOT GIVENUNK [place] Insurance:SELF PAY [facility] Number: Effective Repository Date:2018-06-23 06/17/2018 NIRU B Primary NIRU B [place] [id number] Insurance:HUMANA PATTERSONDOB: Community BRAMBLE MEDICARE PPOPolicy [id number] [facility] [place] Number: Repository [address]Okw: (330 [id number] [phone] () Date:9559-64-94KX [address] [address]UO: 06/17/2018 Secondary NOT GIVENUNK [place] Insurance:SELF PAY [facility] Number: Effective Repository Date:2018-06-16 04/28/2018 NIRU B Primary NIRU B [place] [id number] Insurance:HUMANA PATTERSONDOB: Community BRAMBLE MEDICARE PPOPolicy [id number], [place] Number: Repository [address]Yon: (330 [id number] [phone] (HP) Date:9917-39-68TH [address] [address]DP: 04/28/2018 Secondary NOT GIVENUNK [place] Insurance:SELF PAY [facility] Number: Effective Repository Date:2018-04-28 04/04/2018 NIRU B Primary NIRU B [place] [id number] Insurance:HUMANA PATTERSONDOB: Community BRAMBLE MEDICARE PPOPolicy [id number], [place] Number: Repository [address]Ddz: (330) [id number] [phone]) Date:8723-01-66MK [address] [address]ET: 04/04/2018 Secondary NOT GIVENUNK [place] Insurance:SELF PAY [facility] Number: Effective Repository Date:2018-04-04 04/03/2018 NIRU B Primary NIRU B [place] [id number] Insurance:HUMANA PATTERSONDOB: Community BRAMBLE MEDICARE PPOPolicy [id number] [place] [address], [place]: Repository [address]Lmo: (330) [id number] [phone]) Date:2494-90-39SI [address] [address]HZ: 04/03/2018 Secondary NOT GIVENUNK [place] Insurance:SELF PAY [facility] Number: Effective Repository Date:2018-03-19 03/19/2018 NIRU B Primary NIRU B [place] [id number] Insurance:HUMANA PATTERSONDOB: Community BRAMBLE MEDICARE PPOPolicy [id number], [place] Number: Repository [address]Csz: (330 [id number] [phone] (HP) Date:0954-06-70[place] [address]WP: 03/19/2018 Secondary NOT GIVENUNK [place] Insurance:SELF PAY [facility] Number: Effective Repository Date:2018-03-19 03/19/2018 NIRU B Primary NIRU B [place] [id number] Insurance:HUMANA PATTERSONDOB: Community DIANAMBLE MEDICARE PPOPolicy [id number] [place] Number[place] Repository [address]Yoh: 330 [id number] [phone] (HP) Date:3388-98-16UH [address] [address]FB: 03/19/2018 Secondary NOT GIVENUNK [place] Insurance:SELF PAY [facility] Number: Effective Repository Date:2018-03-19 12/17/2017 NRIU B Primary NIRU B [place] [id number] Insurance:HUMANA PATTERSONDOB: Community BRAMBLE MEDICARE PPOPolicy [id number] [place] Number: Repository [address]Egf: (330 [id number] [phone] () Date:1072-83-01VH[address] [address]DN: 12/17/2017 Secondary NOT GIVENUNK [place] Insurance:SELF PAY [facility] Number: Effective Repository Date:2017-12-17 12/17/2017 NIRU B Primary NIRU B [place] [id number] Insurance:HUMANA PATTERSONDOB: Community BRAMBLE MEDICARE PPOPolicy [id number] [place] Number: Repository [address]Mxb: 330 [id number] [phone] (HP) Date:6800-63-32ED [address] [address]SD: 12/17/2017 Secondary NOT GIVENUNK [place] Insurance:SELF PAY [facility] Number: Effective Repository Date:2017-07-29 12/11/2017 NIRU B Primary NIRU B [place] [id number] Insurance:HUMANA PATTERSONDOB: Community BRAMBLE MEDICARE PPOPolicy [id number], [place] Number: Repository [address]Wku: (330 [id number] [phone]) Date:8324-56-98WV [address] [address]AI: 12/11/2017 Secondary NOT GIVENUNK [place] Insurance:SELF PAY [facility] Number: Effective Repository Date:2017-12-11 10/22/2017 NIRU B Primary NIRU B [place] [id number] Insurance:HUMANA PATTERSONDOB: Community BRAMBLE MEDICARE PPOPolicy [id number], [place] Number: Repository [address]Asv: (330) [id number] [phone]) Date:6353-45-80KR [address] [address]OJ: 10/22/2017 Secondary NOT GIVENUNK [place] Insurance:SELF PAY [facility] Number: Effective Repository Date:2017-09-24 09/24/2017 NIRU B Primary NIRU B [place] [id number] Insurance:HUMANA PATTERSONDOB: Community BRAMBLE MEDICARE PPOPolicy [id number] [place] [address], [place]: Repository [address]Igu: (330 [id number] [phone] (HP) Date:4128-80-33ED [address] [address]RC: 09/24/2017 Secondary NOT GIVENUNK [place] Insurance:SELF PAY [facility] Number: Effective Repository Date:2017-09-09 09/17/2017 NIRU B Primary NIRU B [place] [id number] Insurance:HUMANA PATTERSONDOB: Community BRAMBLE MEDICARE PPOPolicy [id number], [place] Number: Repository [address]Vup: (330 [id number] [phone]) Date:3749-24-11[place] [address]WP: 09/17/2017 Secondary NOT GIVENUNK [place] Insurance:SELF PAY [facility] Number: Effective Repository Date:2017-09-17 09/16/2017 NIRU B Primary NIRU B [place] [id number] Insurance:HUMANA PATTERSONDOB: Community BRAMBLE MEDICARE PPOPolicy [id number], [place] Number: Repository [address]Xse: (330 [id number] [phone]) Date:9851-11-34HJ [address] [address]ND: 09/16/2017 Secondary NOT GIVENUNK [place] Insurance:SELF PAY [facility] Number: Effective Repository Date:2017-09-16 09/16/2017 NIRU B Primary NIRU B [place] [id number] Insurance:HUMANA PATTERSONDOB: Community BRAMBLE MEDICARE PPOPolicy [id number] [place] [address], [place]: Repository [address]Uwm: (330 [id number] [phone] (HP) Date:6889-26-02ES [address] [address]CN: 09/16/2017 Secondary NOT GIVENUNK [place] Insurance:SELF PAY [facility] Number: Effective Repository Date:2017-09-06 09/16/2017 NIRU B Primary NIRU B [place] [id number] Insurance:HUMANA PATTERSONDOB: Community BRAMBLE MEDICARE PPOPolicy [id number] [place] [address] [place]: Repository [address]Fel: (330 [id number] [phone] (HP) Date:8459-50-34VK [address] [address]GQ: 09/16/2017 Secondary NOT GIVENUNK [place] Insurance:SELF PAY [facility] Number: Effective Repository Date:2017-09-16
== END 2018-09-08 13:55 | disposition home or self-care (01) ==
PROVIDERS: Family Provider Internal Medicine; PCP Internal Medicine; Referring Provider Internal Medicine Cardiovascular Disease; Visit Provider Internal Medicine Cardiovascular Disease
DX: R06.09 Other forms of dyspnea (principal); I34.0 Nonrheumatic mitral (valve) insufficiency; I36.1 Nonrheumatic tricuspid (valve) insufficiency; I49.5 Sick sinus syndrome; I27.29 Other secondary pulmonary hypertension; I48.0 Paroxysmal atrial fibrillation; I45.10 Unspecified right bundle-branch block; I10 Essential (primary) hypertension; R53.82 Chronic fatigue, unspecified; Z79.01 Long term (current) use of anticoagulants; Z79.02 Long term (current) use of antithrombotics/antiplatelets; Z79.82 Long term (current) use of aspirin; Z79.899 Other long term (current) drug therapy; Z95.0 Presence of cardiac pacemaker; Z87.891 Personal history of nicotine dependence
CPT/HCPCS: 93458; 99152; J7040; Q9967; C1769; C1894

== ENCOUNTER → 2018-10-02 20:54 | Outpatient (CLI) | payer MEDICARE, SELFPAY ==
[2018-09-05 12:08] VITALS: BMI 25.5
== END ==
PROVIDERS: Family Provider Internal Medicine; PCP Internal Medicine; Referring Provider Physician Assistant Medical; Visit Provider Physician Assistant Medical
DX: G47.10 Hypersomnia, unspecified (principal); I27.29 Other secondary pulmonary hypertension; I36.1 Nonrheumatic tricuspid (valve) insufficiency; I48.0 Paroxysmal atrial fibrillation; R06.09 Other forms of dyspnea; R53.83 Other fatigue; R06.83 Snoring
CPT/HCPCS: 95810

== ENCOUNTER → 2018-10-29 08:54 | Outpatient (CLI) | payer MEDICARE, SELFPAY ==
[2018-10-16 09:09] VITALS: BMI 25.5
[2018-10-28 10:30] VITALS: BMI 25.5
[2018-10-29 09:39] VITALS: PULSE 70; PULSE 78; PULSE 81; PULSE 85; PULSE 90; PULSE 95; PULSE 98; O2SAT 100; O2SAT 98; O2SAT 99
--- NOTE | 2018-10-31 08:26 | PCM.PSN.6M ---
PSN 6 Minute Walk Test - 6 Minute Walk Test 6 Minute Walk Test: 6 Minute Walk Test PSN:6-Minute Walk Test Start: 10/29/18 09:38 Freq: Status: Active Protocol: [id number].[id number] Document 10/29/18 09:39 ROSS (Rec: 10/29/18 09:41 ROSS [id number]) 6 Minute Walk Test Date Performed 10/29/18 Time Performed 09:00 Height 5 ft 4 in Weight: 149 lb Weight in Pounds [address]: Nick Webber Assistive device used: None Pre-test Oxygen Delivery Method Room Air Pulse Ox (%) 99 Pulse Rate (60-100 beats/min) 78 Dyspnea Amber Scale (0-10) 0 Exertion Amber Scale (6-20) 6 1st minute Oxygen Delivery Method Room Air Pulse Ox (%) 99 Pulse Rate (60-100 beats/min) 81 2nd minute Oxygen Delivery Method Room Air Pulse Ox (%) 100 Pulse Rate (60-100 beats/min) 98 3rd minute Oxygen Delivery Method Room Air Pulse Ox (%) 99 Pulse Rate (60-100 beats/min) 85 4th minute Oxygen Delivery Method Room Air Pulse Ox (%) 99 Pulse Rate (60-100 beats/min) 90 5th minute Oxygen Delivery Method Room Air Pulse Ox (%) 98 Pulse Rate (60-100 beats/min) 95 6th minute Oxygen Delivery Method Room Air Pulse Ox (%) 99 Pulse Rate (60-100 beats/min) 98 Dyspnea Amber Scale (0-10) 1 Exertion Amber Scale (6-20) 11 Post-test Oxygen Delivery Method Room Air Pulse Ox (%) 99 Pulse Rate (60-100 beats/min) 70 Full Laps Walked 14 Partial Lap, Number of Tiles Walked 42 Total Distance Walked (ft) 868 - Interpretation Interpretation: The patient ambulated 868 feet over the course of 6 minutes beginning on room air without assistive devices or breaks. Pretesting oxygen saturation was noted to be 99% on room air. With ambulation, the devin oxygen saturation was 98%. There was no significant exertional oxygen desaturation. - Recommendations Recommendations: There is no indication for the use of supplemental oxygen at this time.
== END ==
PROVIDERS: Family Provider Internal Medicine; PCP Internal Medicine; Referring Provider Nurse Practitioner Acute Care; Visit Provider Nurse Practitioner Acute Care
DX: R06.09 Other forms of dyspnea (principal)
CPT/HCPCS: 94618

== ENCOUNTER → 2018-10-31 19:58 | Outpatient (CLI) | payer MEDICARE, SELFPAY ==
[2018-10-16 09:09] VITALS: BMI 25.5
== END ==
PROVIDERS: Family Provider Internal Medicine; PCP Internal Medicine; Referring Provider Nurse Practitioner Acute Care; Visit Provider Nurse Practitioner Acute Care
DX: G47.33 Obstructive sleep apnea (adult) (pediatric) (principal)
CPT/HCPCS: 95811

== ENCOUNTER → 2019-01-22 10:06 | Outpatient (CLI) | payer MEDICARE, SELFPAY ==
[2019-01-07 10:05] VITALS: BMI 25.5
--- NOTE | 2019-01-22 10:12 | RAD_ITS ---
STUDY: X-RAY - ABDOMEN/PELVIS REASON FOR EXAM: Female, 83 years old. Lower abdominal pain. TECHNIQUE: AP supine view. COMPARISON: None. FINDINGS: Normal visualized lung bases. Surgical clips in the lower central abdomen and in both sides of the pelvis. No bowel obstruction. No organomegaly. There is no demonstrated free abdominal air. The visualized liver, spleen and kidneys are grossly normal in size and morphology. Normal soft tissue structures. Normal visualized osseous structures. RAD/Abdomen Single View IMPRESSION: No acute abnormality in the abdomen and pelvis. Electronically Signed: Connor Alberto MD at 11:15 EDT , Service support ,
== END ==
PROVIDERS: Family Provider Internal Medicine; PCP Internal Medicine; Referring Provider Internal Medicine; Visit Provider Internal Medicine
DX: R10.84 Generalized abdominal pain (principal)
CPT/HCPCS: 74018

== ENCOUNTER → 2019-05-14 14:48 | Outpatient (CLI) | payer MEDICARE, SELFPAY ==
[2019-05-14 09:38] VITALS: BMI 24.5
[2019-05-14 15:58] LABS: Anion Gap 6 (5-15); BUN 24 mg/dL (7-18); BUN/Creat Ratio 23.8 RATIO (10-20); Calcium,Total 9.1 mg/dL (8.5-10.1); Chloride 105 mmol/L (98-107); Creatinine, Serum 1.01 mg/dL (0.55-1.02); EST Glomerular Filtration Rate 56 mL/min (>60); Est Glom Filt Rate - Afr Amer 68 mL/min (>60); Glucose 101 mg/dL (74-106); Potassium 3.9 mmol/L (3.5-5.1); Sodium Level 140 mmol/L (136-145)
[2019-05-14 16:07] LABS: BNP,B-Type NATRIURETIC PEPTIDE 426.3 pg/mL (0-100)
== END ==
PROVIDERS: Family Provider Internal Medicine; PCP Internal Medicine; Referring Provider Internal Medicine Cardiovascular Disease; Visit Provider Internal Medicine Cardiovascular Disease
DX: I50.33 Acute on chronic diastolic (congestive) heart failure (principal)
CPT/HCPCS: 36415; 80048; 83880

== ENCOUNTER → 2019-06-22 16:40 | Outpatient (CLI) | payer MEDICARE, SELFPAY ==
[2019-05-14 09:38] VITALS: BMI 24.5
--- NOTE | 2019-06-22 16:45 | RAD_ITS ---
STUDY: X-RAY - LEFT KNEE REASON FOR EXAM: Female, 83 years old. Pain. TECHNIQUE: 2 view(s) of the knee. COMPARISON: None. FINDINGS: Normal visualized distal femur. Normal visualized proximal tibia and fibula. Normal proximal tibiofibular articulation. There is no acute fracture, dislocation or destructive osseous pathology. There is mild degenerative arthrosis of the medial femorotibial compartment. Normal lateral femorotibial compartment. Normal patellofemoral articulation. There is no demonstrated joint effusion. The soft tissue structures are unremarkable. RAD/Knee 4 or More Views IMPRESSION: Degenerative arthrosis. Electronically Signed: Sawyer Galvez DO at 22:41 EST Tel [phone], Service support ,
--- NOTE | 2019-06-22 16:54 | RAD_ITS ---
STUDY: X-RAY - RIGHT KNEE REASON FOR EXAM: Female, 83 years old. Knee pain. No injury. TECHNIQUE: 2 view(s) of the knee. COMPARISON: None. FINDINGS: Normal visualized distal femur. Normal visualized proximal tibia and fibula. Normal proximal tibiofibular articulation. There is no acute fracture, dislocation or destructive osseous pathology. Normal medial femorotibial compartment. There is mild degenerative arthrosis of the lateral femorotibial compartment. There is mild degenerative arthrosis of the patellofemoral articulation. There is a large volume joint effusion. The soft tissue structures are unremarkable. RAD/Knee 4 or More Views IMPRESSION: Degenerative arthrosis. Electronically Signed: Sawyer Galvez DO at 22:41 EST Tel [phone], Service support ,
== END ==
PROVIDERS: Family Provider Internal Medicine; PCP Internal Medicine; Referring Provider Anesthesiology Pain Medicine; Visit Provider Anesthesiology Pain Medicine
DX: M25.561 Pain in right knee (principal); M25.562 Pain in left knee
CPT/HCPCS: 73564

== ENCOUNTER → 2019-07-22 10:22 | Outpatient (CLI) | payer MEDICARE, SELFPAY ==
[2019-06-24 10:34] VITALS: BMI 24.5
--- NOTE | 2019-07-22 10:28 | RAD_ITS ---
STUDY: X-RAY - LUMBAR SPINE REASON FOR EXAM: Female, 83 years old. Low back pain TECHNIQUE: 2 view(s) of the lumbar spine were obtained. COMPARISON: None FINDINGS: The study is technically limited. Normal lumbar lordosis. There is no substantial scoliosis. There is a normal alignment of the vertebrae. Normal vertebral bodies and endplates. There is narrowing of the L3-4 disc space. The soft tissue structures are unremarkable. RAD/Lumbar Spine 2 or 3 Views IMPRESSION: Limited study. Generalized osteopenia. Narrowing of the L3-4 disc space. Electronically Signed: Bebeto Beaver MD at 20:30 EST , Service support ,
== END ==
PROVIDERS: Family Provider Internal Medicine; PCP Internal Medicine; Referring Provider Anesthesiology Pain Medicine; Visit Provider Anesthesiology Pain Medicine
DX: M54.9 Dorsalgia, unspecified (principal)
CPT/HCPCS: 72100

== ENCOUNTER 2019-10-26 09:00 | Outpatient (RCR) | payer MEDICARE, SELFPAY ==
[2019-10-06 14:10] VITALS: BMI 25.7
--- NOTE | 2019-10-26 10:26 | HP.PTEVAL_ITS ---
Patient's Visit Information NELI CLAY is a 84 year old F referred to Physical Therapy by Dr. Iza Aguirre MD with a diagnosis of BACK PAIN. Date of Evaluation: 10/26/19 Physical Therapist: Stephenie Cotton PT, Cert MDT - Visit Plan Frequency: 2-3x /Week Duration: 4-6 Weeks Plan: *GOES BY JOHNSON*. POSTURE CORRECTION/STRENGTHENING, INSTRUCTION IN APPROPRIATE BODY MECHANICS AND ACTIVITY MODIFICATIONS. DLS STARTING WITH A NEUTRAL SPINE PROGRESSING ROM TOLERATED. MARK LE ROM, STRETCHING AND STRENGTHENING. HEP INSTRUCTION. - Subjective Subjective: Work/Leisure: RETIRED. Present symptoms: MARK LOW BACK PAIN. MARK KNEE PAIN. Present since: CHRONIC. Pain Scale: WORST 5/10, LEAST 0/10. Currently: 0/10. Commenced as a result of: NO APPARENT REASON. Symptoms at onset: LOW BACK. Worse: WALKING, GOING UP AND DOWN STAIRS IS THE WORST, SOMETIMES STANDING. Better: SITTING, SPORTS CREAM, HEATING PAD. Disturbed sleep: NO. Previous history/Previous treatment: 2 RECENT KNEE INJECTIONS. NO BACK SURGERY. NO BACK INJECTIONS. Coughing/sneezing/straining: NEGATIVE. Gait: TIME AND DISTANCE LIMITED. Difficulty initiating urination: no. Accidents: NO. Unexplained weight loss: NO. Imaging: LOW BACK AND KNEE X- RAYS SHOWING ARTHRITIS. MINIMMAL IN LOW BACK. PMH: *PACEMAKER*, HTN, BREATHING PROBLEMS, SLEEP APNEA, NEUROPATHY MARK FEET/LOWER LEGS. A-FIB. - Objective Sitting/Standing Posture: POOR. Lordosis: REDUCED. Active Correction of posture: NE. Other Observations: INDEP SLOW GAIT INTO PT WITH WIDE BASE OF SUPPORT. NO LOSS OF BALANCE. INDEP TRANSFERS. Motor deficit: MARK LE'S GROSSLY 5/5 WITH MMT'ING EXCEPT HIPS GRADED 4-/5. Sensory deficit: MARK LE LIGHT TOUCH SENSATION INTACT AND SYMMETRICAL. ROM deficit: TIGHT MARK LE HS'S AND ESPECIALLY MARK LE GASTROC SOLEUS COMPLEX'S. Reflexes: DTR'S. Dural Signs: NEGATIVE MARK'S. Lumbar mvmt loss: flex - NIL. ext - SUMAYA. R SG - SUMAYA. L SG - SUMAYA. Core strength: POOR. Palpation: TENDERNESS WITH PALPATION IN MARK ILIAC CREST REGIONS. TREATMENT: NEUROMUSCULAR REEDUCATION - RETRAINING OF MVMT AND POSTURE FOR SITTING, LYING AND STANDING ACTIVITIES. - Goals Goal 1:: DECREASE C/O BACK AND KNEE PAIN Goal Time Frame: 4-6 Weeks Goal 2:: IMPROVE STANDING, WALKING AND HOMEMAKING FUNCTION Goal Time Frame: 4-6 Weeks Goal 3:: INSTRUCT IN PROPHYLAXIS Goal Time Frame: 4-6 Weeks - Anticipated Interventions Patient/Client Instruction: Educate patient on: Condition, Plan of Care, Risk Factors, Benefits of Fitness Program For the Purpose of:: To improve self management Therapeutic Exercise to Include: Strength training, Body mechanics, Postural training, Flexibilty training, Neuromotor development, In an aquatic setting, Dynamic Lumbar Stabilization For the Purpose of:: To decrease pain, To increase ROM, To improve muscle performance and motor function, To increase tolerance to activity/condition/position, To improve ability of physical actions for home/community/work/leisure Thank you for the opportunity to evaluate your patient. For Medicare and Medicare HMO plans, please review the plan of care and approve it. It will need to be FAXED BACK to us at [phone] for Medicare purposes. For Medicare only, by signing this I certify the plan of care. Please let me know if there are questions or concerns regarding this plan of care. Physician Signature: Date:
== END 2019-10-26 19:00 | disposition home or self-care (01) ==
LOC: PT 09:00
PROVIDERS: PCP Internal Medicine; Referring Provider Anesthesiology Pain Medicine; Visit Provider Anesthesiology Pain Medicine
DX: M54.9 Dorsalgia, unspecified (principal); M25.569 Pain in unspecified knee
CPT/HCPCS: 97112; 97162

== ENCOUNTER → 2021-08-01 07:57 | Outpatient (CLI) | payer MEDICARE, SELFPAY ==
[2021-08-01 09:20] LABS: Absolute Lymphocyte Count 1.65 X10^3/uL (0.83-4.51); Basophil# 0.08 X10^3/uL; Basophil% 1.2 % (0-1); Eosinophil# 0.12 X10^3/uL; Eosinophils% 1.9 % (0-5); Hematocrit 42.8 % (37-47); Lymphocyte # 1.65 X10^3/ul (0.83-4.51); Lymphocyte % 25.6 % (19-41); Mean Corp Hgb Conc 32.7 g/dL (32-36); Mean Corpuscular Volume 91.6 fL (81-99); Mean Platelet Vol. 10.7 fl (6.2-12.0); Monocyte# 0.55 X10^3/uL; Monocyte% 8.5 % (0-10); NRBC Flagged by Analyzer 0 % (0-5); Neutrophil # 4.01 X10^3/uL (2.7-7.7); Neutrophil % 62.3 % (47-70); Platelet Count 233 K/mm3 (150-450); RBC Distribution Width CV 12.8 % (11.6-14.6); RBC Distribution Width SD 43.1 fl (35.1-43.9); Red Blood Count 4.67 M/mm3 (4.2-5.4); White Blood Count 6.4 K/mm3 (4.4-11.0)
[2021-08-01 09:46] LABS: ALB/GLOB Ratio 0.9 RATIO (0.9-2.4); AST(SGOT) 22 U/L (15-37); Alanine Aminotransfer ALT/SGPT 23 U/L (13-56); Albumin, Serum 3.7 g/dL (3.2-5.0); Alkaline Phosphatase 121 U/L (45-117); Anion Gap 9 (5-15); BUN 19 mg/dL (7-18); BUN/Creat Ratio 19.2 RATIO (10-20); Calcium,Total 9.8 mg/dL (8.5-10.1); Chloride 102 mmol/L (98-107); Creatinine, Serum 0.99 mg/dL (0.55-1.02); EST Glomerular Filtration Rate 57 mL/min (>60); Est Glom Filt Rate - Afr Amer 69 mL/min (>60); Globulin 4.1 g/dL (2.2-4.2); Glucose 92 mg/dL (74-106); Potassium 3.8 mmol/L (3.5-5.1); Protein, Total 7.8 g/dL (6.4-8.2); Sodium Level 139 mmol/L (136-145)
[2021-08-01 09:51] LABS: Vitamin B12 402 pg/mL (211-911)
[2021-08-01 10:30] LABS: Hemoglobin A1c 5.2 % (3.8-5.6)
== END ==
PROVIDERS: PCP Internal Medicine; Referring Provider Internal Medicine; Visit Provider Internal Medicine
DX: R73.9 Hyperglycemia, unspecified (principal); I10 Essential (primary) hypertension; G62.9 Polyneuropathy, unspecified
CPT/HCPCS: 36415; 80053; 82607; 83036; 85025

== ENCOUNTER 2021-08-22 13:59 | Outpatient (CLI) | payer MEDICARE, SELFPAY ==
--- NOTE | 2021-08-22 14:01 | BD_ITS ---
STUDY: DUAL ENERGY X-RAY ABSORPTIOMETRY / DXA REASON FOR EXAM: Female, 86 years old. Post menopausal TECHNIQUE: Bone Mineral Density (BMD) measurements of lumbar spine and bilateral hips were obtained. COMPARISON: Comparison is made with prior study dated 07/10/2016. FINDINGS: Lumbar Spine (L1-L4): g/cm2 (0.754) / T-score (-2.0) / Z-score (0.6) Findings are suggestive of osteopenia with a moderate fracture risk. Left Femur Total: g/cm2 (0.608) / T-score (-2.7) / Z-score (-0.5) Left Femoral Neck: g/cm2 (0.550) / T-score (-2.7) / Z-score (-0.2) Right Femur Total: g/cm2 (0.554) / T-score (-3.2) / Z-score (-0.9) Right Femoral Neck: g/cm2 (0.468) / T-score (-3.4) / Z-score (-1.0) The T-Scores on the most recent prior examination were: Lumbar Spine (L1-L4): There has been worsening of bone density since the previous examination. Left Femur Total: which represents a worsening of 18.8%. Right Femur Total: which represents a worsening of 16.4%. BD/Dexa Bone Density Study IMPRESSION: The patient is considered osteoporotic as outlined below according to World Martinez Organization (WHO) criteria with a high fracture risk. There has been worsening of bone density since the previous examination. Reference Information: The T-score is the number of standard deviations above or below the standard which is normal for young adults at their peak bone mineral density. The World Health Organization (WHO) interprets the T-scores as follows: Above -1 Normal bone density Between -1 and -2.5 Osteopenia Equal to / or below -2.5 Osteoporosis As a practical clinical guideline, osteopenia may be graded as follows: Mild -1 through -1.5 Moderate -1.6 through -2.0 Severe -2.1 through -2.4 The Z-score is the number of standard deviations above or below age-matched controls. A Z-score of less than -1.5 would be considered abnormal. References: 1. NIH Osteoporosis and Related Bone Diseases www osteo.org 2. International Society for Clinical Densitometry www iscd.org 3. National Osteoporosis Foundation www nof.org Electronically Signed: Dashawn Jiménez MD at 14:51 EST , Service support ,
== END 2021-08-22 23:59 | disposition short-term general hospital (02) ==
LOC: OPBD 14:00
PROVIDERS: PCP Internal Medicine; Visit Provider Internal Medicine
DX: M81.0 Age-related osteoporosis without current pathological fracture (principal); Z78.0 Asymptomatic menopausal state
CPT/HCPCS: 77080

== ENCOUNTER 2021-10-03 13:49 | Outpatient (CLI) | payer MEDICARE, SELFPAY | END 2021-10-03 23:59 | disposition home or self-care (01) | LOC: BIMLAB 13:50 | PROVIDERS: PCP Internal Medicine; Referring Provider Internal Medicine; Visit Provider Internal Medicine | DX: M81.0 Age-related osteoporosis without current pathological fracture (principal) | CPT/HCPCS: 36415; 82306 ==

== ENCOUNTER → 2021-12-19 | Outpatient (CLI) | payer MEDICARE, SELFPAY ==
[2021-12-19 12:12] LABS: Absolute Lymphocyte Count 1.42 X10^3/uL (0.83-4.51); Absolute Neutrophil Count 3.8 X10^3/uL (2.0-7.7); Basophil# 0.03 X10^3/uL; Basophil% 0.5 % (0-1); Eosinophil# 0.16 X10^3/uL; Eosinophils% 2.7 % (0-5); Hematocrit 42.8 % (37-47); Hemoglobin 14.2 g/dL (12.0-15.0); Lymphocyte # 1.42 X10^3/ul (0.83-4.51); Lymphocyte % 24.4 % (19-41); Mean Corp Hgb Conc 33.2 g/dL (32-36); Mean Corpuscular Hgb 30.8 pg (27.0-32.0); Mean Corpuscular Volume 92.8 fL (81-99); Mean Platelet Vol. 11.3 fl (6.2-12.0); Monocyte# 0.42 X10^3/uL; Monocyte% 7.2 % (0-10); NRBC Flagged by Analyzer 0 % (0-5); Neutrophil # 3.78 X10^3/uL (2.7-7.7); Neutrophil % 64.9 % (47-70); Platelet Count 210 K/mm3 (150-450); RBC Distribution Width CV 13.1 % (11.6-14.6); RBC Distribution Width SD 44.4 fl (35.1-43.9); Red Blood Count 4.61 M/mm3 (4.2-5.4); White Blood Count 5.8 K/mm3 (4.4-11.0)
[2021-12-19 12:26] LABS: Anion Gap 6 (5-15); BUN 22 mg/dL (7-18); BUN/Creat Ratio 22.3 RATIO (10-20); Calcium,Total 8.6 mg/dL (8.5-10.1); Chloride 101 mmol/L (98-107); Creatinine, Serum 0.99 mg/dL (0.55-1.02); EST Glomerular Filtration Rate 57 mL/min (>60); Est Glom Filt Rate - Afr Amer 69 mL/min (>60); Glucose 97 mg/dL (74-106); Sodium Level 135 mmol/L (136-145)
[2021-12-19 12:36] LABS: BNP,B-Type NATRIURETIC PEPTIDE 286.3 pg/mL (0-100)
== END | disposition home or self-care (01) ==
LOC: BIMLAB 10:44
PROVIDERS: PCP Internal Medicine; Referring Provider Internal Medicine; Visit Provider Internal Medicine
DX: I11.0 Hypertensive heart disease with heart failure (principal); I50.32 Chronic diastolic (congestive) heart failure
CPT/HCPCS: 36415; 80048; 83880; 85025

== ENCOUNTER → 2022-01-23 | Outpatient (CLI) | payer MEDICARE, SELFPAY ==
--- NOTE | 2022-01-23 12:11 | RAD_ITS ---
STUDY: X-RAY CHEST REASON FOR EXAM: Female, 86 years old. Shortness of breath and fatigue TECHNIQUE: PA and lateral views of the chest. COMPARISON: 03/19/2018 FINDINGS: Mild hyperexpansion of the lungs. No confluent airspace infiltrate. No pleural effusion or pneumothorax. Borderline cardiomegaly. Left subclavian pacemaker in place.. Normal mediastinum and dave. Normal visualized pulmonary arteries. There is atherosclerotic calcification of the aortic arch . There are diffuse degenerative changes of the visualized thoracic spine. Normal visualized ribs, clavicles, and shoulders. There is no demonstrated abnormality of the visualized soft tissue structures of the upper abdomen. RAD/Chest PA and Lateral IMPRESSION: No acute cardiopulmonary disease Electronically Signed: Kodi Varela MD at 4:27 EDT ,
== END | disposition home or self-care (01) ==
LOC: RAD 12:00
PROVIDERS: PCP Internal Medicine; Visit Provider Internal Medicine
DX: R06.02 Shortness of breath (principal); I50.32 Chronic diastolic (congestive) heart failure; R53.83 Other fatigue
CPT/HCPCS: 71046

== ENCOUNTER → 2022-02-28 | Outpatient (CLI) | payer MEDICARE, SELFPAY ==
--- NOTE | 2022-02-28 09:54 | ECHOCS_ITS ---
Reason For Study: SOB Procedure This was a 2D Doppler, Color Flow transthoracic echocardiogram. The study was technically difficult. Exam performed in department. Left Ventricle Normal LV size. Left ventricular systolic function is normal. The estimated ejection fraction is 55 %. No regional wall motion abnormalities noted. Right Ventricle Normal RV size. Normal systolic function. Atria Normal left atrium. Normal right atrium. Mitral Valve Equivocal mitral valve prolapse. Mild (1+) eccentric mitral valve insufficiency. Tricuspid Valve Normal tricuspid valve. Mild (1+) eccentric tricuspid valve insufficiency. Pulmonary artery systolic pressure is 30 mmHg. Aortic Valve Normal aortic valve. Trisinus/trileaflet aortic valve. Pulmonic Valve The pulmonic valve is not well visualized. Great Vessels Normal aortic root. The pulmonary artery is normal size. Normal inferior vena cava. Pericardium/Pleural No pericardial effusion. Medication 22 gauge I.V. with prn adaptor inserted into right arm. Diluted definity 4ml given slow IV push to enhance endocardial definition. MMode/2D Measurements & Calculations LVIDd: 3.6 cm IVSd: 0.95 cm CO(Teich): 2.6 l/min LVIDs: 2.5 cm LVPWd: 1.00 cm RVDd: 3.3 cm FS: 30.8 % Ao root diam: 3.1 cm LAV(MOD-bp): 56.7 ml LVAd ap4: 17.5 cm2 LAV(MOD-bp) Indexed: 34.0 ml/m2 LVLd ap4: 5.2 cm LAV(MOD-sp2): 60.2 ml EDV(MOD-sp4): 50.0 ml LAV(MOD-sp4): 42.2 ml EDV(sp4-el): 50.1 ml LVAs ap4: 9.9 cm2 LVLs ap4: 4.3 cm ESV(MOD-sp4): 20.4 ml ESV(sp4-el): 19.4 ml EF(MOD-sp4): 59.3 % EF(sp4-el): 61.4 % LVAd ap2: 20.8 cm2 CO(MOD-sp4): 2.3 l/min SV(MOD-sp2): 42.5 ml LVLd ap2: 5.4 cm SV(MOD-sp4): 29.6 ml EDV(MOD-sp2): 69.1 ml EDV(sp2-el): 68.3 ml LVAs ap2: 12.4 cm2 LVLs ap2: 5.0 cm ESV(MOD-sp2): 26.6 ml ESV(sp2-el): 25.8 ml EF(MOD-sp2): 61.5 % SV(sp4-el): 30.8 ml LA dimension(2D): 3.7 cm LA A4 area: 15.4 cm2 RA A4 area: 14.4 cm2 Doppler Measurements & Calculations MV E max celine: 78.1 cm/sec Ao V2 max: 94.4 cm/sec LV V1 max: 67.5 cm/sec Ao max P.6 mmHg LV V1 max P.8 mmHg LV V1 mean P.0 mmHg LV V1 mean: 47.1 cm/sec LV V1 VTI: 12.5 cm PA V2 max: 56.3 cm/sec TR max celine: 261.0 cm/sec TR max P.3 mmHg ECHO/Echo Complete W/ Contrast Interpretation Summary Normal LV size. Left ventricular systolic function is normal. The estimated ejection fraction is 55 %. Equivocal mitral valve prolapse. Mild (1+) eccentric mitral valve insufficiency. Mild (1+) eccentric tricuspid valve insufficiency. Contrast injection was performed. Ordering Physician: Angelica Paulson/Paul Michel Referring Physician: Alexi Alonzo Performed By: Berenice Christie RDCS
== END | disposition home or self-care (01) ==
LOC: CVS 09:52
PROVIDERS: PCP Internal Medicine; Referring Provider Physician Assistant Medical; Visit Provider Physician Assistant Medical
DX: R06.02 Shortness of breath (principal); G47.33 Obstructive sleep apnea (adult) (pediatric)
CPT/HCPCS: 93306; Q9957; A4216; C8929

== ENCOUNTER → 2022-04-16 | Outpatient (CLI) | payer MEDICARE, SELFPAY ==
[2022-04-16 12:43] LABS: Vitamin B12 1941 pg/mL (211-911); Vitamin D,25 Hydroxy 86.2 ng/mL
[2022-04-16 12:46] LABS: Anion Gap 9 (5-15); BUN 23 mg/dL (7-18); BUN/Creat Ratio 20.7 RATIO (10-20); Calcium,Total 10.1 mg/dL (8.5-10.1); Chloride 101 mmol/L (98-107); Creatinine, Serum 1.11 mg/dL (0.55-1.02); EST Glomerular Filtration Rate 50 mL/min (>60); Est Glom Filt Rate - Afr Amer 60 mL/min (>60); Glucose 92 mg/dL (74-106); Potassium 4.1 mmol/L (3.5-5.1); Sodium Level 136 mmol/L (136-145)
[2022-04-16 12:54] LABS: Magnesium 2.8 mg/dL (1.6-2.6)
== END | disposition home or self-care (01) ==
LOC: BIMLAB 10:50
PROVIDERS: Nurse Practitioner Adult Health; PCP Internal Medicine; Referring Provider Internal Medicine; Visit Provider Internal Medicine
DX: I10 Essential (primary) hypertension (principal); G62.9 Polyneuropathy, unspecified; M85.80 Other specified disorders of bone density and structure, unspecified site; R25.2 Cramp and spasm
CPT/HCPCS: 36415; 80048; 82306; 82607; 83735

== ENCOUNTER → 2022-05-08 | Outpatient (CLI) | payer MEDICARE, SELFPAY ==
--- NOTE | 2022-05-10 06:47 | PFT ---
INTRODUCTION: The patient is an 86-year-old female that presents for pulmonary function studies secondary to a diagnosis of shortness of breath. Respiratory therapy reported good patient effort. Bronchodilators were used during testing. INTERPRETATION: Forced expiration spirometry demonstrates the presence of a mild large airways obstructive ventilatory defect. There was no significant response to aerosolized bronchodilators. Spirograms are of good quality and plateau gradually indicating slow emptying of the lungs. Body plethysmography was performed and demonstrated an elevated RV to 172% of predicted, indicative of underlying air trapping. Diffusing capacity by single breath CO was within normal limits. IMPRESSION: Irreversible mild large airways obstructive ventilatory defect with associated air trapping.
== END | disposition home or self-care (01) ==
LOC: PSN 09:46
PROVIDERS: PCP Internal Medicine; Referring Provider Internal Medicine Critical Care Medicine; Visit Provider Internal Medicine Critical Care Medicine
DX: R06.02 Shortness of breath (principal)
CPT/HCPCS: 94060; 94726; 94729

== ENCOUNTER → 2022-06-25 | Outpatient (CLI) | payer MEDICARE, SELFPAY ==
[2022-06-25 12:24] LABS: Vitamin B12 638 pg/mL (211-911); Vitamin D,25 Hydroxy 56.2 ng/mL
== END | disposition home or self-care (01) ==
PROVIDERS: PCP Internal Medicine; Referring Provider Nurse Practitioner Adult Health; Visit Provider Nurse Practitioner Adult Health
DX: E55.9 Vitamin D deficiency, unspecified (principal); E56.9 Vitamin deficiency, unspecified
CPT/HCPCS: 36415; 82306; 82607

== ENCOUNTER → 2022-10-15 | Outpatient (CLI) | payer MEDICARE, SELFPAY ==
[2022-10-15 12:07] LABS: Absolute Lymphocyte Count 1.91 X10^3/uL (0.83-4.51); Absolute Neutrophil Count 4.1 X10^3/uL (2.0-7.7); Basophil# 0.09 X10^3/uL; Basophil% 1.3 % (0-1); Eosinophil# 0.16 X10^3/uL; Eosinophils% 2.3 % (0-5); Hematocrit 40.7 % (37-47); Hemoglobin 13.2 g/dL (12.0-15.0); Lymphocyte # 1.91 X10^3/ul (0.83-4.51); Lymphocyte % 27.9 % (19-41); Mean Corp Hgb Conc 32.4 g/dL (32-36); Mean Corpuscular Hgb 30.8 pg (27.0-32.0); Mean Corpuscular Volume 95.1 fL (81-99); Mean Platelet Vol. 10.9 fl (6.2-12.0); Monocyte# 0.56 X10^3/uL; Monocyte% 8.2 % (0-10); NRBC Flagged by Analyzer 0 % (0-5); Neutrophil # 4.09 X10^3/uL (2.7-7.7); Neutrophil % 59.9 % (47-70); Platelet Count 245 K/mm3 (150-450); RBC Distribution Width CV 13.1 % (11.6-14.6); RBC Distribution Width SD 45.6 fl (35.1-43.9); Red Blood Count 4.28 M/mm3 (4.2-5.4); White Blood Count 6.8 K/mm3 (4.4-11.0)
[2022-10-15 12:24] LABS: Vitamin B12 538 pg/mL (211-911)
[2022-10-15 12:27] LABS: AST(SGOT) 28 U/L (15-37); Alanine Aminotransfer ALT/SGPT 24 U/L (13-56); Albumin, Serum 3.7 g/dL (3.2-5.0); Alkaline Phosphatase 59 U/L (45-117); Anion Gap 6 (5-15); BUN 22 mg/dL (7-18); Chloride 104 mmol/L (98-107); Creatinine, Serum 1.05 mg/dL (0.55-1.02); EST Glomerular Filtration Rate 53 mL/min (>60); Est Glom Filt Rate - Afr Amer 64 mL/min (>60); Globulin 3.7 g/dL (2.2-4.2); Glucose 94 mg/dL (74-106); Potassium 4.1 mmol/L (3.5-5.1); Protein, Total 7.4 g/dL (6.4-8.2); Sodium Level 137 mmol/L (136-145)
== END | disposition home or self-care (01) ==
LOC: BIMLAB 10:46
PROVIDERS: PCP Internal Medicine; Visit Provider Internal Medicine
DX: I10 Essential (primary) hypertension (principal); M81.0 Age-related osteoporosis without current pathological fracture; Z13.21 Encounter for screening for nutritional disorder
CPT/HCPCS: 36415; 80053; 82607; 84439; 84443; 85025

== ENCOUNTER → 2023-04-17 | Outpatient (CLI) | payer MEDICARE, SELFPAY ==
[2023-04-17 12:20] LABS: Absolute Lymphocyte Count 1.67 X10^3/uL (0.83-4.51); Absolute Neutrophil Count 4.3 X10^3/uL (2.0-7.7); Basophil# 0.05 X10^3/uL; Basophil% 0.8 % (0-1); Eosinophil# 0.14 X10^3/uL; Eosinophils% 2.1 % (0-5); Hematocrit 40.5 % (37-47); Hemoglobin 13.8 g/dL (12.0-15.0); Lymphocyte # 1.67 X10^3/ul (0.83-4.51); Lymphocyte % 25.2 % (19-41); Mean Corp Hgb Conc 34.1 g/dL (32-36); Mean Corpuscular Hgb 31.8 pg (27.0-32.0); Mean Corpuscular Volume 93.3 fL (81-99); Mean Platelet Vol. 11.1 fl (6.2-12.0); Monocyte# 0.48 X10^3/uL; Monocyte% 7.2 % (0-10); NRBC Flagged by Analyzer 0 % (0-5); Neutrophil # 4.29 X10^3/uL (2.7-7.7); Neutrophil % 64.5 % (47-70); Platelet Count 215 K/mm3 (150-450); RBC Distribution Width CV 12.9 % (11.6-14.6); RBC Distribution Width SD 44.3 fl (35.1-43.9); Red Blood Count 4.34 M/mm3 (4.2-5.4); White Blood Count 6.6 K/mm3 (4.4-11.0)
[2023-04-17 12:54] LABS: AST(SGOT) 22 U/L (15-37); Alanine Aminotransfer ALT/SGPT 25 U/L (13-56); Albumin, Serum 3.8 g/dL (3.2-5.0); Alkaline Phosphatase 64 U/L (45-117); Anion Gap 7 (5-15); BUN 19 mg/dL (7-18); BUN/Creat Ratio 17.4 RATIO (10-20); Calcium,Total 10.5 mg/dL (8.5-10.1); Chloride 102 mmol/L (98-107); Creatinine, Serum 1.09 mg/dL (0.55-1.02); EST Glomerular Filtration Rate 51 mL/min (>60); Est Glom Filt Rate - Afr Amer 61 mL/min (>60); Globulin 3.7 g/dL (2.2-4.2); Glucose 96 mg/dL (74-106); Potassium 3.7 mmol/L (3.5-5.1); Protein, Total 7.5 g/dL (6.4-8.2); Sodium Level 136 mmol/L (136-145)
== END | disposition home or self-care (01) ==
LOC: BIMLAB 11:07
PROVIDERS: PCP Internal Medicine; Visit Provider Internal Medicine
DX: M81.0 Age-related osteoporosis without current pathological fracture (principal); I10 Essential (primary) hypertension
CPT/HCPCS: 36415; 80053; 82306; 85025

== ENCOUNTER → 2023-08-29 | Outpatient (CLI) | payer MEDICARE, SELFPAY ==
--- NOTE | 2023-08-29 10:37 | RAD_ITS ---
INDICATION: for PPM generator change EXAMINATION/TECHNIQUE: X-RAY - XR Chest 2 Views COMPARISON: 01/23/2022. FINDINGS: The lungs are clear. Tortuous and calcified thoracic aorta. The heart is not enlarged. Left-sided cardiac device. No pleural effusion or pneumothorax. Degenerative changes of the thoracic spine. RAD/Chest PA and Lateral IMPRESSION: No acute radiographic abnormalities. Electronically Signed: Luis Eduardo Carpio MD at 16:56 EST ,
[2023-08-29 11:00] LABS: Bacteria 0 SEEN /hpf (None Seen); Mucous, Urine 0 SEEN /hpf (<or=2+); Red Blood Cells-Urine 0 SEEN /hpf (0-5); Squamous Epithelial Cells - UA 0 SEEN /hpf (5-10)
[2023-08-29 11:36] LABS: Color, Urine Straw (Yellow); Glucose, Dipstick Normal (Normal); Ketone-Dipstick Negative (Negative); Leukocyte Esterase-Dipstick 500 /ul (Negative); Nitrite-Dipstick Negative (Negative); Occult Blood-Urine 25 /ul (Negative); Protein-Dipstick 15 mg/dl (Negative); Urine Bilirubin Dipstick Negative (Negative); Urine Clarity Cloudy (Clear); Urine Urobilinogen Normal (Normal)
[2023-08-29 11:38] LABS: Hematocrit 42.9 % (37-47); Hemoglobin 14.1 g/dL (12.0-15.0); Mean Corp Hgb Conc 32.9 g/dL (32-36); Mean Corpuscular Hgb 30.7 pg (27.0-32.0); Mean Corpuscular Volume 93.5 fL (81-99); Mean Platelet Vol. 10.9 fl (6.2-12.0); Platelet Count 239 K/mm3 (150-450); RBC Distribution Width CV 13.2 % (11.6-14.6); Red Blood Count 4.59 M/mm3 (4.2-5.4); White Blood Count 9.7 K/mm3 (4.4-11.0)
[2023-08-29 11:45] LABS: International Normalized Ratio 1.3; Prothrombin Time (Protime)PT. 16.1 SECONDS (11.7-14.9)
[2023-08-29 11:46] LABS: White Blood Cells 50-100 SEEN /hpf (0-5)
[2023-08-29 11:53] LABS: Anion Gap 7 (5-15); BUN 28 mg/dL (7-18); BUN/Creat Ratio 22.4 RATIO (10-20); Calcium,Total 10.5 mg/dL (8.5-10.1); Chloride 101 mmol/L (98-107); Creatinine, Serum 1.25 mg/dL (0.55-1.02); EST Glomerular Filtration Rate 43 mL/min (>60); Est Glom Filt Rate - Afr Amer 52 mL/min (>60); Glucose 101 mg/dL (74-106); Potassium 4.2 mmol/L (3.5-5.1); Sodium Level 135 mmol/L (136-145)
== END | disposition home or self-care (01) ==
LOC: RAD 10:36
PROVIDERS: PCP Internal Medicine; Referring Provider Internal Medicine Cardiovascular Disease; Visit Provider Internal Medicine Cardiovascular Disease
DX: R06.02 Shortness of breath (principal); I49.5 Sick sinus syndrome; I48.11 Longstanding persistent atrial fibrillation; I45.10 Unspecified right bundle-branch block; I10 Essential (primary) hypertension; Z95.0 Presence of cardiac pacemaker
CPT/HCPCS: 36415; 71046; 80048; 81001; 85027; 85610

== ENCOUNTER 2023-09-11 10:34 | Day surgery (SDC) | payer MEDICARE, SELFPAY ==
--- NOTE | 2023-09-05 13:34 | PCM.HP.BLA ---
History and Physical Date of Admission: 09/11/23 NELI CLAY, is a 88 F who presents to the [facility] today for a generator change. She does have a history of atrial fibrillation, hypertension, right bundle branch block, RENETTA with BiPaP therapy, and pulmonary hypertension. She also has a permanent pacemaker. Her major complaint at this time is that she still remains fatigued. She denies any chest pain or paroxysmal nocturnal dyspnea or pedal edema and no neck arm or jaw discomfort to suggest angina. You remember that she underwent a cardiac catheterization in 2019 which demonstrated no obstructive coronary disease. Her last echocardiogram last year demonstrated preserved ejection fraction, equivocal mitral valve prolapse, mild mitral and tricuspid regurgitation. Her device was evaluated on 08/29/2023. It indicated time for generator change. Intake Vital Signs: See EMR Intake Visit Reasons: Generator change Allergies No Known Allergies Allergy (Verified 05/10/23 09:21) Medications See EMR Ejection fraction %: 55 to 59 PFS Medical History Back pain Basal cell carcinoma (BCC) in situ of skin Cataracts, bilateral Cervical cancer Chronic diastolic (congestive) heart failure Complete right bundle branch block Dry mouth Dyspnea on exertion Encounter for vitamin deficiency screening Essential hypertension Fatigue History of arthritis Hives Knee pain Limb weakness Longstanding persistent atrial fibrillation Lower extremity edema Neck pain New onset atrial fibrillation Nonrheumatic tricuspid (valve) insufficiency RENETTA (obstructive sleep apnea) Osteoporosis Other secondary pulmonary hypertension PND (post-nasal drip) Sick sinus syndrome Sinus bradycardia SOB (shortness of breath) Surgical History H/O vein stripping History of appendectomy History of cardioversion (07/13/17) History of hysterectomy History of hysterectomy for cancer History of left heart catheterization (09/08/18) History of tonsillectomy Hx of cholecystectomy Presence of cardiac pacemaker (09/16/17) Tubal ligation status Family History Mother CHF (congestive heart failure)Father Myocardial infarction Kidney diseaseBrother Hypertension Social History household members: none housing: assisted living facility current occupational status: retired pets and animals: No history of recent travel: No Smoking Status: Former smoker how long ago did patient quit smokin second hand exposure: No alcohol intake: never substance use type: does not use caffeine: No what type of physical activity do you participate in: none frequency: 3-4 times per week seatbelt use: always do you feel safe at home: Yes ROS Const Const: Positive for fatigue, daytime sleepiness and difficulty sleeping; Negative for weakness or headache(s) Eyes Eyes: Negative for change in vision ENT ENT: Positive for balance problems (at times); Negative for headache(s), dizziness or Nosebleed/epistaxis Cardio Chest Pain: No Palpitations: No Edema: None Resp Respiratory: Positive for SOB with activity and SOB orthopnea\SOB lying down (uses CPAP); Negative for SOB at rest or Cough GI GI: Negative nausea, vomiting or heartburn Musc Musc: Positive for balance problems (at times) Neuro Neuro: Negative for dizziness, lightheadedness, near syncope, headache(s) or weakness Endo Endo: Positive for fatigue Cardiology Exam Const Appearance: cooperative, healthy appearing, comfortable and no acute distress Nutritional Appearance: average body habitus and well nourished Orientation: alert, awake and oriented x3 Head Head: normal to inspection Ears: hearing grossly normal bilaterally Nose: external nose normal Face and Sinus: face symmetric Mouth: moist mucous membranes Eyes General: appearance normal, both eyes and all related structures Eyelids: eyelids normal EOM: EOM intact bilaterally Neck Neck: normal visual inspection and no JVD Carotids: normal carotid upstroke Chest Chest inspection: normal inspection of the chest, symmetric chest movement and normal respiratory effort; Negative cough Auscultation: Bilateral: Clear to Auscultation Cardio Rate: regular rate Rhythm: irregular rhythm Heart sounds: S1 normal and S2 normal; Negative rub, gallop or murmur GI GI: normal to inspection Neuro General: patient alert, patient awake, patient oriented x3 and CN's II-XI intact bilaterally Skin Skin: no rashes or lesions noted Extremities Pulses: Normal: Right Posterior Tibial Pulse, Left Posterior Tibial Pulse and Right Radial Pulse and Diminished: Left Radial Pulse Lower Extremity Edema: Trace: Bilateral Psych Psychological: normal affect Supplemental Info Supplemental Information Echocardiogram from 02/28/2022: Interpretation Summary Normal LV size. Left ventricular systolic function is normal. The estimated ejection fraction is 55 %. Equivocal mitral valve prolapse. Mild (1+) eccentric mitral valve insufficiency. Mild (1+) eccentric tricuspid valve insufficiency. Contrast injection was performed. Heart cath in 08/2018 demonstrated: DOMINANCE: Left Dominant LEFT HEART ASSESSMENT Left Ventricular Ejection Fraction: by LV Gram 60 % Normal LV wall motion Normal Left Ventricular systolic function Normal Left Ventricular systolic function LEFT MAIN: Angiographically normal LEFT ANTERIOR DESCENDING ARTERY: Angiographically normal CIRCUMFLEX ARTERY: Angiographically normal RIGHT CORONARY ARTERY: Angiographically normal Stress test in 2018 demonstrated: Normal pharmacologic myocardial perfusion stress test. Preserved ejection fraction. Assessment and Plan Assessment and Plan (1) Longstanding persistent atrial fibrillation: Status: Chronic Plan: He does have longstanding persistent atrial fibrillation. She remains on anticoagulation and rate control. (2) Essential hypertension: Status: Chronic Plan: Patient's blood pressure is well-controlled. We will continue to monitor. We will not make any medication regimen changes. (3) Chronic diastolic (congestive) heart failure: Status: Chronic Plan: She does have preserved left ventricular systolic function. With an ejection fraction of 55% from a year ago. At this time I would not suggest that we make any major changes. (4) Presence of cardiac pacemaker: Status: Chronic Plan: She will proceed with generator change.
[2023-09-10 09:44] VITALS: BMI 25.8
--- NOTE | 2023-09-11 12:57 | CL.IE_ITS ---
Patient: NELI CLAY Study Date: 09/11/2023 Performing: Paul Michel MD : 1935 Age: 88 Gender: female PROCEDURES PERFORMED [id number])BATTERY REMOVAL+REPLACEMENT PACER-DUAL LEAD INDICATIONS Sinoatrial node dysfunction/Sick sinus syndrome End-of-life replacement indicator PROCEDURE DETAILS The patient was brought to the Catheterization Lab in the postabsorptive nonsedated state. Informed consent was obtained prior to the procedure. Local anesthetic was given subcutaneously to the left upper chest area with Lidocaine 2%. Incision was made to the left upper chest. PPM generator was removed. PPM atrial lead testing performed. PPM ventricular lead testing performed. PPM ventricular lead testing performed. Device pocket was irrigated with antibiotic. new PPM generator was attached to the lead(s) and inserted into the pocket. Subcutaneous closure was completed with 3-0 Vicryl. Skin closure was completed with 4-0 Vicryl. Steri-strips applied to left subclavicular incision. Pressure dressing applied to left chest. The patient tolerated the procedure well. Estimated Blood Loss: 15 ml's IMPLANTED / EX-PLANTED DEVICES DEVICE PARAMETERS DEVICE PARAMETERS: Mode- CCIR Lower rate- 60 Upper rate- 130 CONCLUSIONS / RECOMMENDATIONS Device Conclusions: Successful implantation of a dual chamber pacemaker battery change and replacement Device Recommendations: Follow up with Primary Care Physician PROCEDURE MEDICATIONS Fentanyl 50 mcg IV Versed 1 mg IV Versed 1 mg IV Oxygen: 2 L/min via nasal cannula Ancef 2 Gm IV @ 09/11/2023 12:10:21 Signed By Paul Michel MD On 09/11/2023 12:56:36 Paul Michel MD
== END 2023-09-11 14:30 | disposition home or self-care (01) ==
LOC: CLSP 10:40
PROVIDERS: PCP Internal Medicine; Referring Provider Internal Medicine Cardiovascular Disease; Visit Provider Internal Medicine Cardiovascular Disease
DX: Z95.0 Presence of cardiac pacemaker (principal); I11.0 Hypertensive heart disease with heart failure; I50.32 Chronic diastolic (congestive) heart failure; I48.11 Longstanding persistent atrial fibrillation; I49.5 Sick sinus syndrome; G47.33 Obstructive sleep apnea (adult) (pediatric); Z79.01 Long term (current) use of anticoagulants; Z79.899 Other long term (current) drug therapy; Z87.891 Personal history of nicotine dependence
CPT/HCPCS: 33228; 99152; 99153; J7040; J7050

== ENCOUNTER → 2023-11-20 | Outpatient (CLI) | payer MEDICARE, SELFPAY ==
--- NOTE | 2023-11-20 08:54 | BD_ITS ---
STUDY: DUAL ENERGY X-RAY ABSORPTIOMETRY / DXA REASON FOR EXAM: Female, 88 years old. Osteoporosis TECHNIQUE: Bone Mineral Density (BMD) measurements of lumbar spine and bilateral hips were obtained. COMPARISON: Comparison is made with prior study dated February 19, 2022. FINDINGS: Lumbar Spine (L1-L4): g/cm2 (0.907) / T-score (-0.7) / Z-score (2.0) Findings are suggestive of normal bone density with a low fracture risk. Left Femur Total: g/cm2 (0.660) / T-score (-2.3) / Z-score (0.0) Left Femoral Neck: g/cm2 (0.592) / T-score (-2.3) / Z-score (0.2) Right Femur Total: g/cm2 (0.592) / T-score (-2.9) / Z-score (-0.5) Right Femoral Neck: g/cm2 (0.500) / T-score (-3.1) / Z-score (-0.6) The T-Scores on the most recent prior examination were: Lumbar Spine (L1-L4): There has been improvement of bone density since the previous examination. Left Femur Total: which represents an improvement of 8.6%. Right Femur Total: which represents an improvement of 6.7%. BD/Dexa Bone Density Study IMPRESSION: The patient is considered osteoporotic as outlined below according to World Martinez Organization (WHO) criteria with a high fracture risk. There has been improvement of bone density since the previous examination. Reference Information: The T-score is the number of standard deviations above or below the standard which is normal for young adults at their peak bone mineral density. The World Health Organization (WHO) interprets the T-scores as follows: Above -1 Normal bone density Between -1 and -2.5 Osteopenia Equal to / or below -2.5 Osteoporosis As a practical clinical guideline, osteopenia may be graded as follows: Mild -1 through -1.5 Moderate -1.6 through -2.0 Severe -2.1 through -2.4 The Z-score is the number of standard deviations above or below age-matched controls. A Z-score of less than -1.5 would be considered abnormal. References: 1. NIH Osteoporosis and Related Bone Diseases www osteo.org 2. International Society for Clinical Densitometry www iscd.org 3. National Osteoporosis Foundation www nof.org Electronically Signed: Dashawn Jiménez MD at 19:07 EDT ,
== END | disposition home or self-care (01) ==
LOC: OPBD 08:48
PROVIDERS: PCP Internal Medicine; Referring Provider Internal Medicine; Visit Provider Internal Medicine
DX: M81.0 Age-related osteoporosis without current pathological fracture (principal)
CPT/HCPCS: 77080

== ENCOUNTER → 2024-06-05 | Outpatient (CLI) | payer MEDICARE, SELFPAY ==
[2024-06-05 15:20] LABS: Absolute Lymphocyte Count 1.84 X10^3/uL (0.83-4.51); Absolute Neutrophil Count 4.2 X10^3/uL (2.0-7.7); Basophil# 0.09 X10^3/uL; Basophil% 1.3 % (0-1); Eosinophil# 0.24 X10^3/uL; Eosinophils% 3.5 % (0-5); Hematocrit 42.6 % (37-47); Hemoglobin 14.1 g/dL (12.0-15.0); Lymphocyte # 1.84 X10^3/ul (0.83-4.51); Lymphocyte % 26.8 % (19-41); Mean Corp Hgb Conc 33.1 g/dL (32-36); Mean Corpuscular Hgb 30.7 pg (27.0-32.0); Mean Corpuscular Volume 92.8 fL (81-99); Mean Platelet Vol. 11.2 fl (6.2-12.0); Monocyte# 0.53 X10^3/uL; Monocyte% 7.7 % (0-10); NRBC Flagged by Analyzer 0 % (0-5); Neutrophil # 4.15 X10^3/uL (2.7-7.7); Neutrophil % 60.4 % (47-70); Platelet Count 233 K/mm3 (150-450); RBC Distribution Width CV 13.2 % (11.6-14.6); RBC Distribution Width SD 44.7 fl (35.1-43.9); Red Blood Count 4.59 M/mm3 (4.2-5.4); White Blood Count 6.9 K/mm3 (4.4-11.0)
[2024-06-05 15:44] LABS: AST(SGOT) 23 U/L (15-37); Alanine Aminotransfer ALT/SGPT 20 U/L (13-56); Albumin, Serum 3.9 g/dL (3.2-5.0); Alkaline Phosphatase 63 U/L (45-117); Anion Gap 7 (5-15); BUN 24 mg/dL (7-18); BUN/Creat Ratio 21.4 RATIO (10-20); Calcium,Total 9.6 mg/dL (8.5-10.1); Chloride 103 mmol/L (98-107); Creatinine, Serum 1.12 mg/dL (0.55-1.02); EST Glomerular Filtration Rate 49 mL/min (>60); Est Glom Filt Rate - Afr Amer 59 mL/min (>60); Globulin 3.8 g/dL (2.2-4.2); Glucose 126 mg/dL (74-106); Potassium 3.9 mmol/L (3.5-5.1); Protein, Total 7.7 g/dL (6.4-8.2); Sodium Level 136 mmol/L (136-145)
== END | disposition home or self-care (01) ==
LOC: BIMLAB 13:41
PROVIDERS: PCP Internal Medicine; Referring Provider Internal Medicine; Visit Provider Internal Medicine
DX: I10 Essential (primary) hypertension (principal); M81.0 Age-related osteoporosis without current pathological fracture
CPT/HCPCS: 36415; 80053; 82306; 85025

== ENCOUNTER → 2024-11-30 | Outpatient (CLI) | payer MEDICARE, SELFPAY ==
[2024-11-30 15:15] LABS: Absolute Lymphocyte Count 1.98 X10^3/uL (0.83-4.51); Basophil# 0.09 X10^3/uL; Basophil% 1.3 % (0-1); Eosinophil# 0.12 X10^3/uL; Eosinophils% 1.8 % (0-5); Hematocrit 38.7 % (37-47); Lymphocyte # 1.98 X10^3/ul (0.83-4.51); Mean Corp Hgb Conc 33.6 g/dL (32-36); Mean Corpuscular Hgb 31.3 pg (27.0-32.0); Mean Platelet Vol. 10.7 fl (6.2-12.0); Monocyte# 0.58 X10^3/uL; Monocyte% 8.5 % (0-10); NRBC Flagged by Analyzer 0 % (0-5); Neutrophil # 4.04 X10^3/uL (2.7-7.7); Neutrophil % 59.1 % (47-70); Platelet Count 206 K/mm3 (150-450); RBC Distribution Width CV 12.8 % (11.6-14.6); RBC Distribution Width SD 43.6 fl (35.1-43.9); Red Blood Count 4.16 M/mm3 (4.2-5.4); White Blood Count 6.8 K/mm3 (4.4-11.0)
[2024-11-30 16:17] LABS: Vitamin B12 341 pg/mL (180-914)
[2024-11-30 16:18] LABS: Anion Gap 11 (5-15); BUN 22 mg/dL (4-19); BUN/Creat Ratio 20.1 RATIO (10-20); Calcium,Total 9.8 mg/dL (7.6-11.0); Carbon Dioxide 26.6 mmol/L (21.0-32.0); Chloride 99 mmol/L (98-108); Creatinine, Serum 1.11 mg/dL (0.70-1.20); EST Glomerular Filtration Rate 48 (>60); Glucose 85 mg/dL (70-99); Potassium 3.9 mmol/L (3.3-5.1); Sodium Level 136 mmol/L (133-145)
== END | disposition home or self-care (01) ==
LOC: BIMLAB 14:41
PROVIDERS: PCP Internal Medicine; Referring Provider Internal Medicine; Visit Provider Internal Medicine
DX: I10 Essential (primary) hypertension (principal); G62.9 Polyneuropathy, unspecified
CPT/HCPCS: 36415; 80048; 82607; 84439; 84443; 85025

== ENCOUNTER → 2024-12-23 | Outpatient (CLI) | payer MEDICARE, SELFPAY | END | disposition home or self-care (01) | PROVIDERS: PCP Internal Medicine; Referring Provider Nurse Practitioner Acute Care; Visit Provider Nurse Practitioner Acute Care | DX: R06.02 Shortness of breath (principal) | CPT/HCPCS: 94060; 94726; 94729 ==

== ENCOUNTER → 2025-01-12 | Outpatient (CLI) | payer MEDICARE, SELFPAY ==
[2025-01-12 11:34] VITALS: PULSE 74; PULSE 75; PULSE 76; PULSE 77; PULSE 78; PULSE 79; PULSE 81; PULSE 82; O2SAT 97; O2SAT 98; O2SAT 99
--- NOTE | 2025-01-14 08:25 | PCM.PSN.6M ---
PSN 6 Minute Walk Test 6 Minute Walk Test 6 Minute Walk Test: 6 Minute Walk Test PSN:6-Minute Walk Test Start: 01/12/25 11:34 Freq: Status: Active Protocol: [id number] Document 01/12/25 11:34 [facility] (Rec: 01/12/25 11:37 [facility] [id number]) 6 Minute Walk Test Date Performed 01/12/25 Time Performed 11:00 Height 5 ft 4 in Weight: 150 lb Weight in Pounds 150.[address]: Diana Garvin [employer] Assistive device Cane used: Pre-test Oxygen Delivery Room Air Method Pulse Ox (%) 99 Pulse Rate (60-100 75 beats/min) Dyspnea Amber Scale ( 0 0-10) Exertion Amber Scale 6 (6-20) 1st minute Oxygen Delivery Room Air Method Pulse Ox (%) 98 Pulse Rate (60-100 76 beats/min) Dyspnea Amber Scale ( 0 0-10) Number of Rests 0 Taken 2nd minute Oxygen Delivery Room Air Method Pulse Ox (%) 97 Pulse Rate (60-100 74 beats/min) Dyspnea Amber Scale ( 0 0-10) Number of Rests 0 Taken 3rd minute Oxygen Delivery Room Air Method Pulse Ox (%) 98 Pulse Rate (60-100 77 beats/min) Dyspnea Amber Scale ( 0 0-10) Number of Rests 0 Taken 4th minute Oxygen Delivery Room Air Method Pulse Ox (%) 98 Pulse Rate (60-100 79 beats/min) Dyspnea Amber Scale ( 0 0-10) Number of Rests 0 Taken 5th minute Oxygen Delivery Room Air Method Pulse Ox (%) 98 Pulse Rate (60-100 78 beats/min) Dyspnea Amber Scale ( 0 0-10) Number of Rests 0 Taken 6th minute Oxygen Delivery Room Air Method Pulse Ox (%) 99 Pulse Rate (60-100 82 beats/min) Dyspnea Amber Scale ( 0 0-10) Number of Rests 0 Taken Post-test Oxygen Delivery Room Air Method Pulse Ox (%) 99 Pulse Rate (60-100 81 beats/min) Dyspnea Amber Scale ( 0 0-10) Exertion Amber Scale 8 (6-20) Full Laps Walked 7 Partial Lap, Number 13 of Tiles Walked Total Distance 426 Walked (ft) Interpretation Interpretation: The patient ambulated 426 feet over the course of 6 minutes beginning on room air with use of cane. Pretesting oxygen saturation was noted to be 99% on room air. With ambulation, the devin oxygen saturation was 97%. Although there was evidence of impaired walk distance, there was no significant exertional oxygen desaturation. Recommendations Recommendations: There is no indication for the use of supplemental oxygen at this time.
== END | disposition home or self-care (01) ==
LOC: PSN 10:44
PROVIDERS: PCP Internal Medicine; Referring Provider Nurse Practitioner Acute Care; Visit Provider Nurse Practitioner Acute Care
DX: R06.02 Shortness of breath (principal)
CPT/HCPCS: 94618